=== PATIENT | female | born 1950 | race Caucasian/White ===

== ENCOUNTER → 2020-01-09 12:31 | Outpatient (BNVA) | payer MEDICARE, SELFPAY | PROVIDERS: PCP Internal Medicine; Referring Provider Internal Medicine; Visit Provider Physician Assistant | DX: R19.7 Diarrhea, unspecified (principal); R63.4 Abnormal weight loss; E11.9 Type 2 diabetes mellitus without complications; Z79.84 Long term (current) use of oral hypoglycemic drugs | CPT/HCPCS: 99213 ==

== ENCOUNTER 2020-01-16 08:08 | Outpatient (REF) | payer MEDICARE, SELFPAY ==
--- NOTE | 2020-01-16 08:10 | FL_ITS ---
EXAMINATION: BARIUM SWALLOW CLINICAL INFORMATION: Abnormal weight loss COMPARISON: None TECHNIQUE: Barium was performed using thin and thick barium and effervescent granules. Barium tablet was also administered. FINDINGS: Exam is limited. The patient could not tolerate thick barium. There is retention of barium in the vallecula. No aspiration or penetration is seen. There is gastroesophageal reflux. There is question of esophagitis of the distal esophagus. No hernia is seen. The barium tablet passed freely into the stomach. No stricture is seen. FL/FL barium swallow IMPRESSION: Limited exam. Retention of barium in the vallecula. Gastroesophageal reflux and question distal esophagitis.
== END 2020-01-16 08:09 | disposition home or self-care (01) ==
LOC: HO.XRAY 08:08
PROVIDERS: PCP Internal Medicine Geriatric Medicine; Visit Provider Physician Assistant
DX: R63.4 Abnormal weight loss (principal)
CPT/HCPCS: 74220

== ENCOUNTER → 2020-01-26 12:38 | Outpatient (BNVA) | payer MEDICARE, SELFPAY | PROVIDERS: PCP Internal Medicine Geriatric Medicine; Referring Provider Internal Medicine Geriatric Medicine; Visit Provider Physician Assistant | DX: K21.9 Gastro-esophageal reflux disease without esophagitis (principal); R13.10 Dysphagia, unspecified; R93.3 Abnormal findings on diagnostic imaging of other parts of digestive tract | CPT/HCPCS: 99212; Q3014 ==

== ENCOUNTER 2020-03-06 10:29 | Outpatient (REF) | payer MEDICARE, SELFPAY | END 2020-03-06 10:30 | disposition home or self-care (01) | LOC: HO.LAB 10:29 | PROVIDERS: PCP Internal Medicine Geriatric Medicine; Visit Provider Internal Medicine | DX: Z20.828 Contact with and (suspected) exposure to other viral communicable diseases (principal) | CPT/HCPCS: C9803; U0003 ==

== ENCOUNTER 2020-03-07 09:40 | Day surgery (SDC) | payer MEDICARE, OTHER, SELFPAY ==
[2020-03-01 10:58] VITALS: BMI 27.6
--- NOTE | 2020-03-06 10:55 | HO.ANESPROP2 ---
Documented by User: Emily Bowens 03/06/20 10:57 HPI - Anesthesia Eval Consult details Narrative: 69yo F for Upper Endoscopy [facility] Past Medical History Medical History Acid reflux Afib Arrhythmia Breast cancer Diabetes HTN (hypertension) Family History Family History (Updated 01/26/20 @ 10:04 by Taylor Darby PA-C) Father No problems noted. Daughter Diabetes Surgical History Surgical History H/O colonoscopy H/O: History of lumpectomy of right breast Hx of lymph node biopsy Social History Social History Alcohol intake: never Smoking Status: Never smoker Advance Directives Information Provided: No Recently lost weight without trying: Unsure Current occupational status: retired Current occupation: this summer Meds Allergies Allergy/AdvReac Type Severity Reaction Status Date / Time diphenhydramine AdvReac Nausea Verified 03/01/20 11:02 [From Steven] Home Medications Medication Instructions Recorded Confirmed Type atorvastatin 40 mg tablet 40 mg PO DAILY 01/09/20 03/01/20 History dulaglutide 0.75 mg/0.5 mL 0.75 mg SUBCUT QWEEK 01/09/20 03/01/20 History subcutaneous pen injector lisinopril 5 mg tablet 5 mg PO DAILY 01/09/20 03/01/20 History metformin 1,000 mg tablet 1,000 mg PO BID 01/09/20 03/01/20 History metoprolol succinate 25 mg 25 mg PO BID 01/09/20 03/01/20 History tablet,extended release 24 hr aspirin 81 mg tablet,delayed 81 mg PO DAILY 01/26/20 03/01/20 History release omeprazole 20 mg capsule,delayed 20 mg PO DAILY 01/26/20 03/01/20 History release Exam Exam Date and Time: March 06, 2020 1055 Height,Weight and Vital Signs: Height 4 ft 9 in Weight 58.06 kg Pertinent Lab Results Pertinent Lab Results: Laboratory Tests 05/10/19 08:45 BUN 20 H Creatinine 0.78 Assessment and Plan Assessment Anesthesia Assessment: Chart Reviewed Documented by User: Karen Cooley 03/07/20 10:55 [facility] Past Medical History Medical History Acid reflux Afib Arrhythmia Breast cancer Diabetes HTN (hypertension) Family History Family History (Updated 01/26/20 @ 10:04 by Taylor Darby PA-C) Father No problems noted. Daughter Diabetes Surgical History Surgical History H/O colonoscopy H/O: History of lumpectomy of right breast Hx of lymph node biopsy Social History Social History Alcohol intake: never Smoking Status: Never smoker Advance Directives Information Provided: No Recently lost weight without trying: Unsure Current occupational status: retired Current occupation: this summer [employer] Allergies Allergy/AdvReac Type Severity Reaction Status Date / Time diphenhydramine AdvReac Nausea Verified 03/01/20 11:02 [From [facility]] Home Medications Medication Instructions Recorded Confirmed Type atorvastatin 40 mg tablet 40 mg PO DAILY 01/09/20 03/01/20 History dulaglutide 0.75 mg/0.5 mL 0.75 mg SUBCUT QWEEK 01/09/20 03/01/20 History subcutaneous pen injector lisinopril 5 mg tablet 5 mg PO DAILY 01/09/20 03/01/20 History metformin 1,000 mg tablet 1,000 mg PO BID 01/09/20 03/01/20 History metoprolol succinate 25 mg 25 mg PO BID 01/09/20 03/01/20 History tablet,extended release 24 hr aspirin 81 mg tablet,delayed 81 mg PO DAILY 01/26/20 03/01/20 History release omeprazole 20 mg capsule,delayed 20 mg PO DAILY 01/26/20 03/01/20 History release Exam Airway Mallampati Class: II TM Dist: >3cm Neck ROM: Full Loose/Missing/Broken Teeth: No Heart: RRR Lungs: CTA Assessment and Plan Assessment Anesthesia Assessment: Anesthesia Plan Discussed and Chart Reviewed Final Anesthetic Review NPO: Yes ASA Class: III Final Preanesthetic Review: Meds/Allgs Chart Reviewed, Consent Obtained/Reviewed and Anes Risks/Benef Reviewed Patient Risk: Intermediate Procedure Risk: Intermediate Anesthetic Plan Anesthetic Plan: MAC: Disposition: Standard PACU
[2020-03-07 09:47] VITALS: BP 170/77; PULSE 72; RESP 18; TEMP 37.4; O2SAT 98
--- NOTE | 2020-03-07 10:05 | ECG_ITS ---
Test Reason : ARRHYTHMIA Blood Pressure : / mmHG Vent. Rate : 061 BPM Atrial Rate : 061 BPM P-R Int : 150 ms QRS Dur : 116 ms QT Int : 436 ms P-R-T Axes : 066 -18 104 degrees QTc Int : 438 ms Normal sinus rhythm Cannot rule out Anterior infarct (cited on or before 05-MAR-2009) T wave abnormality, consider lateral ischemia Abnormal ECG When compared with ECG of 30-APR-2013 18:37, Sinus rhythm has replaced Atrial fibrillation Serial changes of Anterior infarct Present Referred By: Karen Cooley Electronically Signed By:ADAN MAURICIO MD
[2020-03-07 10:11] LABS: Glucose, Whole Blood 182 mg/dL (60-115)
[2020-03-07] MEDS: Lactated Ringers 1,000 ML 100 ML IVCONT (10:12)
--- NOTE | 2020-03-07 10:13 | PC.NURSE ---
patient having arrythmia. asymptomatic. ekg being performed. anti aware.
--- NOTE | 2020-03-07 10:41 | MHC.SHP ---
Pre-Procedural Eval Section B Chief Complaint: GERD Relevant Family History (Specify if Yes): No Relevant Social History: None Present Medications: see Short Stay Collaborative assessment Medical History: Significant History (Acid reflux Breast cancer Diabetes HTN (hypertension)) History of Previous Operations: Relevant previous surgery/procedure and date(s) (lumpectomy, LN biopsy, c section) Allergies: Allergies Allergy/AdvReac Type Severity Reaction Status Date / Time diphenhydramine AdvReac Nausea Verified 03/01/20 11:02 [From Benadryl] Review of Systems Sugical H&P ROS: Negative: Constitution, Cardiovascular, Respiratory, Neurological, Psychiatric, Hem-Onc, Allergic/Immunologic, Gastrointestinal, Genitourinary, Musculoskeletal, Integumentary, Endocrine and Eyes/Ears/Nose/Throat Exam Surgical H&P Exam: Normal: HEENT, Normal: Heart, Normal: Lungs, Normal: Extremities, Normal: Abdomen, Normal: Skin and Normal: Neurological Plan Diagnosis/Plan: Unchanged I have reviewed the history and physical and performed a pertinent physical examination on my patient. No changes have occurred unless specified.
--- NOTE | 2020-03-07 10:43 | PM.OP ---
Brief Operative Note Date of Service: 03/07/20 Pre-op diagnosis: nausea, diarrhea Post-op diagnosis: same Procedure: Procedure Description: EGD FLEXIBLE TRANSORAL UPPER GASTROINTESTINAL ENDOSCOPY UPPER ENDOSCOPY Consent: Indications for the procedure and potential complications of bleeding, perforation, reaction to medications and missed diagnosis were discussed with the patient and informed consent was obtained. Instrument: Olympus GIF H 190 J mid size upper endoscope Monitoring: Vital signs and clinical assessment, continuous EKG monitoring, Pulse oximetry, Carbon Dioxide monitoring and blood pressure monitoring were done throughout the procedure. Procedure: The patient was placed in the left lateral decubitis position and pre-procedure medications were administered and a bite block was placed. The endoscope was inserted into the mouth and advanced under direct vision to the third part of duodenum. A careful inspection was made as the upper endoscope was withdrawn including a retroflexed examination of the proximal stomach; Findings and interventions are described below. Findings: Larynx:normal Esophagus: GE junction at 32 cm, diaphragm hiatus at 32 cm, salmon pink tongue at GEJ, possible short segment barretts, bx taken Stomach: Patchy gastric erythema, erosion at antrum. Biopsies were obtained. Grade 2 flap valve on retroflexed examination of the cardia. Duodenum: mild erythema in bulb, with superficial erosion, bx taken Intervention: Biopsies as noted above Impression/Findings: erosive duodenitis erosive gastritis possible barretts PLAN: await bx result if h pylori pos then treat check if taking any other nsaid in addition to aspirin increase omerpazole to 20 mg BID and see if get better effect Surgeon: Ailyn Bran MD Anesthesia: MAC Estimated blood loss (mL): 0 Condition: stable Disposition: PACU
--- NOTE | 2020-03-07 10:50 | PC.NURSE ---
md du from anesthesia aware of her ekg. ok to proceed. patient is asymptomatic
[2020-03-07 11:21] VITALS: BP 132/64; PULSE 65; RESP 12; TEMP 36; O2SAT 100
[2020-03-07 11:35] VITALS: BP 154/61; PULSE 62; RESP 16; O2SAT 99
[2020-03-07 11:50] VITALS: BP 161/71; PULSE 58; RESP 16; O2SAT 100
--- NOTE | 2020-03-07 14:14 | HO.POSTANES ---
Post Anesthesia Evaluation Post Anesthesia Evaluation Vital Signs: Vital Signs Temp Pulse Resp BP Pulse Ox 03/07/20 11:50 58 16 161/71 H 100 03/07/20 11:35 62 16 154/61 H 99 03/07/20 11:21 96.8 F 65 12 132/64 100 03/07/20 09:47 99.4 F 72 18 170/77 H 98 Anesthesia: Monitored Mental Status: Awake Nausea/Vomiting: None Hydration: Adequate Anesthesia-Related Issues: No Anes. Related Issues
== END 2020-03-07 12:44 | disposition home or self-care (01) ==
PROVIDERS: PCP Internal Medicine Geriatric Medicine; Visit Provider Internal Medicine Gastroenterology
PROC: 0DJ08ZZ Inspection of Upper Intestinal Tract, Via Natural or Artificial Opening Endoscopic (ICD-10-PCS; CPT 43235; principal; 2020-03-07 11:30)
DX: K21.9 Gastro-esophageal reflux disease without esophagitis (principal); K29.80 Duodenitis without bleeding; K29.50 Unspecified chronic gastritis without bleeding; B96.81 Helicobacter pylori [H. pylori] as the cause of diseases classified elsewhere; K44.9 Diaphragmatic hernia without obstruction or gangrene; I10 Essential (primary) hypertension; E11.9 Type 2 diabetes mellitus without complications; Z79.84 Long term (current) use of oral hypoglycemic drugs; Z79.82 Long term (current) use of aspirin; Z79.899 Other long term (current) drug therapy; Z85.3 Personal history of malignant neoplasm of breast
CPT/HCPCS: 43239; 82947; 88305; 88342; 93005

== ENCOUNTER → 2020-03-14 12:53 | Outpatient (BNVA) | payer MEDICARE, SELFPAY | PROVIDERS: PCP Internal Medicine Geriatric Medicine; Referring Provider Internal Medicine Geriatric Medicine; Visit Provider Physician Assistant | DX: Z18.9 Retained foreign body fragments, unspecified material (principal) | CPT/HCPCS: Q3014 ==

== ENCOUNTER 2020-03-27 08:23 | Outpatient (REF) | payer OTHER, SELFPAY | END 2020-03-27 08:24 | disposition home or self-care (01) | LOC: HO.LAB 08:23 | PROVIDERS: Visit Provider Internal Medicine | DX: Z20.822 Contact with and (suspected) exposure to COVID-19 (principal) | CPT/HCPCS: 36415; C9803; U0003 ==

== ENCOUNTER → 2020-04-11 10:21 | Outpatient (BNVA) | payer OTHER, SELFPAY | PROVIDERS: PCP Internal Medicine Geriatric Medicine; Visit Provider Physician Assistant | DX: Z76.89 Persons encountering health services in other specified circumstances (principal) ==

== ENCOUNTER 2020-05-03 10:23 | Outpatient (REF) | payer OTHER, SELFPAY | END 2020-05-03 10:24 | disposition home or self-care (01) | LOC: HO.LNP 10:23 | PROVIDERS: Visit Provider Physician Assistant | DX: A04.8 Other specified bacterial intestinal infections (principal) | CPT/HCPCS: 87338 ==

== ENCOUNTER → 2020-05-10 10:26 | Outpatient (BNVA) | payer MEDICARE, SELFPAY | PROVIDERS: PCP Internal Medicine Geriatric Medicine; Visit Provider Physician Assistant | CPT/HCPCS: Q3014 ==

== ENCOUNTER 2020-10-11 10:03 | Outpatient (REF) | payer MEDICARE, SELFPAY ==
--- NOTE | ~2020-10-11 | MM_ITS ---
EXAMINATION: MM SCREENING DIGITAL BREAST TOMOSYNTHESIS, BILATERAL CLINICAL INFORMATION: Right lumpectomy for breast cancer, 2010. Due for yearly. COMPARISON: Mammography: 10/06/2019, 07/14/2018, 11/10/2016 TECHNIQUE: Digital breast tomosynthesis is performed in both the craniocaudal and mediolateral oblique views along with computer-aided detection (CAD). Synthesized 2D images are generated from the tomosynthesis. FINDINGS: There are scattered areas of fibroglandular density (ACR BI-RADS breast composition Category b). Breast tissue composition borders on heterogeneously dense. There is a stable nodule mid outer left breast similar to prior exams. Bilateral vascular and scattered benign punctate round and some coarse calcifications are again seen. There is no interval mass or architectural abnormality or abnormal calcifications. There are post therapy changes right breast with mild reduced breast size and stable scarring posterior upper outer quadrant. There is benign coarse calcification in the scar. No significant changes. MM/MM tomosynthesis screening BI IMPRESSION: No mammographic evidence of malignancy. Post therapy changes right breast. ASSESSMENT: BI-RADS 2: Benign RECOMMENDATION: Routine annual mammography screening. This patient's information was entered into a reminder system with a target due date for their next mammogram.
== END 2020-10-11 10:04 | disposition home or self-care (01) ==
LOC: HO.MAMMO 10:03
PROVIDERS: Visit Provider Internal Medicine Geriatric Medicine
DX: Z12.31 Encounter for screening mammogram for malignant neoplasm of breast (principal)
CPT/HCPCS: 77063; 77067

== ENCOUNTER 2021-03-26 10:26 | Outpatient (REF) | payer MEDICARE, SELFPAY ==
--- NOTE | ~2021-03-26 | XR_ITS ---
EXAMINATION: XR LUMBOSACRAL SPINE CLINICAL INFORMATION: Low back pain COMPARISON: None TECHNIQUE: Three views of the lumbosacral spine. FINDINGS: The vertebral body heights and intervertebral disc spaces are maintained. Multilevel endplate degenerative changes/anterior osteophytes. The disc spaces are preserved and the vertebral alignment is normal. The paraspinal soft tissues are normal. There is mild atherosclerotic calcification of the abdominal aorta. XR/XR lumbar spine 2-3V IMPRESSION: Mild degenerative disease of lumbar spine.
== END 2021-03-26 10:27 | disposition home or self-care (01) ==
LOC: HO.XRAY 10:26
PROVIDERS: Visit Provider Internal Medicine Geriatric Medicine
DX: M54.50 Low back pain, unspecified (principal)
CPT/HCPCS: 72100

== ENCOUNTER 2021-08-20 09:12 | Outpatient (REF) | payer MEDICARE, SELFPAY ==
--- NOTE | ~2021-08-20 | MM_ITS ---
EXAMINATION: BONE DENSITOMETRY CLINICAL INDICATION: Asymptomatic menopausal state. COMPARISON: Previous BD dated 12/04/2015 and baseline BD dated 10/27/2007. TECHNIQUE: Using a [employer] Social DXA System (software version: 13.1) manufactured by [employer], dual-energy x-ray absorptiometry was performed of the lumbar spine and left hip. The images are of good technical quality. Summary results are attached. FINDINGS: AP SPINE L1-L4: Current: BMD 1.014 g/cm2, Z-score 1.0, T-score -1.4, osteopenia, 4.5% decrease from previous, 3.5% decrease from baseline (<5% change is not significant). Prior: BMD 1.062 g/cm2. Baseline: BMD 1.051 g/cm2. LEFT FEMUR, NECK: Current: BMD 1.099 g/cm2, Z-score 2.7, T-score 0.4, normal. Prior: BMD 1.084 g/cm2. Baseline: BMD 1.072 g/cm2. LEFT FEMUR, TOTAL: Current: BMD 1.121 g/cm2, Z-score 3.0, T-score 0.9, normal, 1.8% decrease from previous, 1.6% decrease from baseline (<5% change is not significant). Prior: BMD 1.142 g/cm2. Baseline: BMD 1.139 g/cm2. IDENTIFIED RISK FACTORS: Low body weight, menopause. HISTORY OF FRACTURE: None listed. MEDICATIONS: Calcium. MM/XR DEXA axial skeleton IMPRESSION: 1. DIAGNOSIS: Osteopenia based on the lowest T-score value of -1.4 in the lumbar spine applying World Health Organization criteria. 2. 10-YEAR FRACTURE RISK PREDICTION, FRAX: Major osteoporotic fracture (clinical spine, forearm, hip or shoulder) 3.5%. Hip fracture 0.2%. 3. Treatment Recommendations: NOF guidelines recommend consideration for treatment in postmenopausal women and men age 50 and older presenting with the following: -A hip or vertebral (clinical or morphometric) fracture. -T-score less than or equal to -2.5 at the femoral neck or spine after appropriate evaluation to exclude secondary causes. -Low bone mass at the hip or spine and a 10-year fracture probability by FRAX of greater than or equal to 3% for hip fracture or greater than or equal to 20% for major osteoporotic fracture based on the [place] adapted WHO algorithm. 4. Other Recommendations: All treatment decisions require clinical judgment and consideration of individual patient factors, including patient preferences, comorbidities, previous drug use, risk factors not captured in the FRAX model (e.g. frailty, falls, vitamin D deficiency, increased bone turnover, interval significant decline in bone density) and possible under or overestimation of fracture risk by FRAX. Additional medical evaluation for secondary cause of low bone mineral density may be appropriate. FUTURE SCAN RECOMMENDATION: People with diagnosed cases of osteoporosis or at high risk for fracture should have regular bone mineral density tests. For patients eligible for Medicare, routine testing is allowed once every 2 years. The testing frequency can be increased to one year for patients who have rapidly progressing disease, those who are receiving or discontinuing medical therapy to restore bone mass, or have additional risk factors.
== END 2021-08-20 09:13 | disposition home or self-care (01) ==
LOC: HO.MAMMO 09:12
PROVIDERS: PCP Internal Medicine Geriatric Medicine; Visit Provider Internal Medicine Geriatric Medicine
DX: Z13.820 Encounter for screening for osteoporosis (principal); Z78.0 Asymptomatic menopausal state; M85.80 Other specified disorders of bone density and structure, unspecified site
CPT/HCPCS: 77080

== ENCOUNTER 2021-10-16 09:02 | Outpatient (REF) | payer MEDICARE, SELFPAY ==
--- NOTE | ~2021-10-16 | MM_ITS ---
EXAMINATION: MM SCREENING DIGITAL BREAST TOMOSYNTHESIS, BILATERAL CLINICAL INFORMATION: Screening. Asymptomatic. History right breast cancer status post lumpectomy, 2010. COMPARISON: Mammography: 10/11/2020, 10/06/2019, 07/14/2018 TECHNIQUE: Digital breast tomosynthesis is performed in both the craniocaudal and mediolateral oblique views along with computer-aided detection (CAD). Synthesized 2D images are generated from the tomosynthesis. FINDINGS: There are scattered areas of fibroglandular density (ACR BI-RADS breast composition Category b). Breast tissue composition borders on heterogeneously dense. There is fibronodular parenchymal pattern similar to prior studies. Nodule mid upper outer left breast is similar to prior studies. There is no interval mass or architectural abnormality. There are scattered bilateral vascular and some punctate calcifications. Benign grouped coarse calcifications again seen mid 8:00 left breast. There is stable lumpectomy scar posterior upper outer right breast with central benign dystrophic calcification. The synthesized CC view shows calcifications versus pseudo calcification digital processing artifact just anterior lateral to the dystrophic calcification. No definite correlate on MLO view. Patient will be recalled for additional imaging. MM/MM tomosynthesis screening BI IMPRESSION: Right: -Question of calcifications versus pseudocalcification digital processing artifact anterior lateral aspect lumpectomy scar on synthesized CC view. Left: -No significant changes from prior exams. ASSESSMENT: BI-RADS 0: Incomplete - Need Additional Imaging Evaluation RECOMMENDATION: 1. Additional views of the right breast (magnification CC, magnification ML). 2. Radiology department staff will contact the patient for additional imaging. This patient's information was entered into a reminder system with a target due date for their next mammogram.
== END 2021-10-16 09:03 | disposition home or self-care (01) ==
LOC: HO.MAMMO 09:02
PROVIDERS: PCP Internal Medicine Geriatric Medicine; Visit Provider Internal Medicine Geriatric Medicine
DX: Z12.31 Encounter for screening mammogram for malignant neoplasm of breast (principal)
CPT/HCPCS: 77063; 77067

== ENCOUNTER 2021-10-18 10:06 | Outpatient (REF) | payer MEDICARE, SELFPAY ==
--- NOTE | ~2021-10-18 | MM_ITS ---
EXAMINATION: MM BREAST DIAGNOSTIC DIGITAL, RIGHT CLINICAL INFORMATION: Grouping of calcifications in patient status post breast cancer with lumpectomy, right breast. COMPARISON: Mammography: 10/16/2021 and studies dating back to 04/16/2007 TECHNIQUE: Digital mammography is performed in the following views: Spot magnification views in craniocaudal and 90 degree mediolateral views. FINDINGS: There are scattered areas of fibroglandular density (ACR BI-RADS breast composition Category b). On craniocaudal view, there are noted to be 2 groupings of microcalcifications, one laterally and one slightly medially which appear to be new. The medial calcifications appear to lie inferiorly in approximately the 4 to 5 o'clock position. The deeper grouping of calcifications laterally appears to lie at approximately the 9 o'clock position. Stereotactic core biopsy is recommended. The calcifications appear to be distant from the surgical site. The above recommendation was explained to the patient at time of examination. Shahana at referring physician's office was notified of the above recommendations on 10/18/2021. MM/MM added views RT IMPRESSION: Two groupings of right breast calcifications for which stereotactic core biopsy is recommended. ASSESSMENT: BI-RADS 4: Suspicious RECOMMENDATION: Stereotactic core biopsy. This patient's information was entered into a reminder system with a target due date for their next mammogram.
== END 2021-10-18 10:07 | disposition home or self-care (01) ==
LOC: HO.MAMMO 10:06
PROVIDERS: PCP Internal Medicine Geriatric Medicine; Visit Provider Internal Medicine Geriatric Medicine
DX: R92.1 Mammographic calcification found on diagnostic imaging of breast (principal)
CPT/HCPCS: 77065

== ENCOUNTER 2021-10-24 09:24 | Outpatient (REF) | payer MEDICARE, SELFPAY ==
--- NOTE | ~2021-10-24 | MM_ITS ---
EXAMINATION: STEREOTACTIC-GUIDED VACUUM-ASSISTED BREAST BIOPSY (TWO SITES), RIGHT SPECIMEN RADIOGRAPH, RIGHT POST PROCEDURE DIGITAL MAMMOGRAM, RIGHT CLINICAL INFORMATION: 2 separate areas of grouped calcifications right breast for stereotactic sampling. History right breast cancer status post lumpectomy, 2010. Calcifications not at lumpectomy site. COMPARISON: Mammography 10/18/2021, 10/16/2021, 10/11/2020, 10/06/2019. TECHNIQUE/PROCEDURE: Informed consent was obtained from the patient after discussion of the benefits, risks, and alternatives to biopsy today. Patient appeared to understand. Gave opportunity for questions. Patient signed consent form. BIOPSY TABLE: [employer] Affirm Prone Biopsy System. SPECIMEN A: LESION: Multiple grouped calcifications mid outer right breast. LOCAL ANESTHESIA: 6 mL carbonated 1% lidocaine; 8 mL 1% lidocaine with epinephrine. DERMATOTOMY: Single skin norberto dermatotomy performed. NEEDLE: [employer] Eviva 9-gauge vacuum assisted core biopsy device. APPROACH: Caudal cranial CORES: 5 CLIP: [employer] SecurMark T-shaped marker. SPECIMEN RADIOGRAPH (A): Specimen radiograph is taken in separate room using digital mammography. The index calcifications are in the excised cores. There are at least 25 calcifications in the cores. SPECIMEN B: Fresh biopsy supplies are used for 2nd biopsy site. LESION: Focal tightly grouped left calcifications circular lesion arranged lower inner quadrant. LOCAL ANESTHESIA: 5 mL carbonated 1% lidocaine; 10 mL 1% lidocaine with epinephrine. DERMATOTOMY: A new single skin norberto dermatotomy performed. NEEDLE: [employer] Eviva 9-gauge vacuum assisted core biopsy device. APPROACH: Caudal cranial CORES: 5 CLIP: [employer] SecurMark Cylinder-shaped marker. SPECIMEN RADIOGRAPH (B): Specimen radiograph is taken in separate room using digital mammography. The index calcifications are in the excised cores. There are at least 10 calcifications in the cores. POST PROCEDURE UNILATERAL DIGITAL MAMMOGRAM: The post biopsy mammogram is performed in separate room using separate digital mammography equipment from the biopsy procedure. CC and ML views are obtained. Density There are scattered areas of fibroglandular density (breast composition category: b). The 2 clip markers are in position. The calcifications are markedly decreased at the biopsy sites. No gross hematoma. The patient tolerated the procedure well. No immediate complications. Home instructions reviewed with the patient. Final pathology results are pending. MM/MM stereotactic biopsy RT IMPRESSION: 1. Stereotactically guided core biopsy right breast (2 sites) with clip placement at each site. 2. Specimen radiograph taken for each biopsy site. 3. Post procedure mammogram. There is satisfactory positioning of the biopsy clips. 4. Final pathology results pending. An addendum report will be issued.
--- NOTE | ~2021-10-24 | MM_ITS ---
EXAMINATION: STEREOTACTIC-GUIDED VACUUM-ASSISTED BREAST BIOPSY (TWO SITES), RIGHT SPECIMEN RADIOGRAPH, RIGHT POST PROCEDURE DIGITAL MAMMOGRAM, RIGHT CLINICAL INFORMATION: 2 separate areas of grouped calcifications right breast for stereotactic sampling. History right breast cancer status post lumpectomy, 2010. Calcifications not at lumpectomy site. COMPARISON: Mammography 10/18/2021, 10/16/2021, 10/11/2020, 10/06/2019. TECHNIQUE/PROCEDURE: Informed consent was obtained from the patient after discussion of the benefits, risks, and alternatives to biopsy today. Patient appeared to understand. Gave opportunity for questions. Patient signed consent form. BIOPSY TABLE: [employer] Affirm Prone Biopsy System. SPECIMEN A: LESION: Multiple grouped calcifications mid outer right breast. LOCAL ANESTHESIA: 6 mL carbonated 1% lidocaine; 8 mL 1% lidocaine with epinephrine. DERMATOTOMY: Single skin norberto dermatotomy performed. NEEDLE: [employer] Eviva 9-gauge vacuum assisted core biopsy device. APPROACH: Caudal cranial CORES: 5 CLIP: [employer]Mark T-shaped marker. SPECIMEN RADIOGRAPH (A): Specimen radiograph is taken in separate room using digital mammography. The index calcifications are in the excised cores. There are at least 25 calcifications in the cores. SPECIMEN B: Fresh biopsy supplies are used for 2nd biopsy site. LESION: Focal tightly grouped left calcifications circular lesion arranged lower inner quadrant. LOCAL ANESTHESIA: 5 mL carbonated 1% lidocaine; 10 mL 1% lidocaine with epinephrine. DERMATOTOMY: A new single skin norberto dermatotomy performed. NEEDLE: [employer] Eviva 9-gauge vacuum assisted core biopsy device. APPROACH: Caudal cranial CORES: 5 CLIP: [employer] SecurMark Cylinder-shaped marker. SPECIMEN RADIOGRAPH (B): Specimen radiograph is taken in separate room using digital mammography. The index calcifications are in the excised cores. There are at least 10 calcifications in the cores. POST PROCEDURE UNILATERAL DIGITAL MAMMOGRAM: The post biopsy mammogram is performed in separate room using separate digital mammography equipment from the biopsy procedure. CC and ML views are obtained. Density There are scattered areas of fibroglandular density (breast composition category: b). The 2 clip markers are in position. The calcifications are markedly decreased at the biopsy sites. No gross hematoma. The patient tolerated the procedure well. No immediate complications. Home instructions reviewed with the patient. Final pathology results are pending. MM/MM stereotactic biopsy ea add IMPRESSION: 1. Stereotactically guided core biopsy right breast (2 sites) with clip placement at each site. 2. Specimen radiograph taken for each biopsy site. 3. Post procedure mammogram. There is satisfactory positioning of the biopsy clips. 4. Final pathology results pending. An addendum report will be issued.
[2021-10-24] MEDS: Lidocaine HCl 1 % 20 ML VIAL 5 ML SUBCUT ×2 (13:12→13:15)
[2021-10-24] MEDS: Sodium Bicarbonate 8.4% 50 MEQ/50 ML VIAL SUBCUT ×2 (13:13→13:16)
== END 2021-10-24 09:25 | disposition home or self-care (01) ==
LOC: HO.MAMMO 09:24
PROVIDERS: PCP Internal Medicine Geriatric Medicine; Visit Provider Surgery
DX: R92.8 Other abnormal and inconclusive findings on diagnostic imaging of breast (principal)
CPT/HCPCS: 19081; 19082; 88305; 99202; A4648

== ENCOUNTER → 2021-10-29 15:30 | Outpatient (BNVA) | payer MEDICARE, SELFPAY | PROVIDERS: PCP Internal Medicine Geriatric Medicine; Visit Provider Surgery | DX: R92.8 Other abnormal and inconclusive findings on diagnostic imaging of breast (principal); Z98.890 Other specified postprocedural states | CPT/HCPCS: 99212 ==

== ENCOUNTER 2022-10-31 08:55 | Outpatient (REF) | payer OTHER, SELFPAY ==
--- NOTE | ~2022-10-31 | MM_ITS ---
EXAMINATION: MM SCREENING DIGITAL BREAST TOMOSYNTHESIS, BILATERAL CLINICAL INFORMATION: Screening. Asymptomatic. COMPARISON: Mammography: This study is compared with prior exams dating back to 2019. TECHNIQUE: Digital breast tomosynthesis is performed in both the craniocaudal and mediolateral oblique views along with computer-aided detection (CAD). Synthesized 2D images are generated from the tomosynthesis. FINDINGS: The breasts are heterogeneously dense, which may obscure small masses (ACR BI-RADS breast composition Category c). There are 2 sites of prior benign percutaneous biopsy and mediolateral aspects of the breast as indicated by the tissue markers. There are few, coarse and punctate benign calcifications in each breast. There are no mammographic signs of malignancy in the right breast. There are no significant masses, abnormal calcifications, or other abnormalities. MM/MM tomosynthesis screening BI IMPRESSION: No mammographic evidence of malignancy. ASSESSMENT: BI-RADS BI-RADS 2 - Benign Findings RECOMMENDATION: Routine annual mammography screening. 1 year F/U This examination should not preclude the clinical evaluation of a suspicious palpable abnormality. This patient's information was entered into a reminder system with a target due date for their next mammogram.
== END 2022-10-31 08:56 | disposition home or self-care (01) ==
LOC: HO.MAMMO 08:55
PROVIDERS: PCP Internal Medicine Geriatric Medicine; Visit Provider Internal Medicine Geriatric Medicine
DX: Z12.31 Encounter for screening mammogram for malignant neoplasm of breast (principal)
CPT/HCPCS: 77063; 77067

== ENCOUNTER → 2022-10-31 09:30 | Outpatient (BNV) | payer OTHER, SELFPAY | PROVIDERS: PCP Internal Medicine Geriatric Medicine; Visit Provider Radiology Diagnostic Radiology | DX: Z12.31 Encounter for screening mammogram for malignant neoplasm of breast (principal) | CPT/HCPCS: 77063; 77067 ==

== ENCOUNTER 2023-01-05 07:20 | Outpatient (REF) | payer OTHER, SELFPAY ==
[2023-01-05 07:45] LABS: MANUAL DIFF FLAG NO
[2023-01-05 08:39] LABS: Basophils Absolute Auto 0.1 X10*3/uL (0.0-0.2); Eosinophils Absolute Auto 0.4 X10*3/uL (0.0-0.4); Eosinophils Percent Auto 5.2 % (0-4); Hematocrit 40.3 % (37.0-47.0); Hemoglobin 13.3 g/dl (12.0-16.0); Imm Gran Abs Auto 0.03 X10*3/uL (0.00-0.03); Imm Gran Pct Auto 0.4 % (0.0-0.4); Lymphocytes Absolute Auto 1.6 X10*3/uL (1.2-4.9); Mean Corpuscular Hemoglobin 31.9 pg (27.0-33.0); Mean Corpuscular Volume 96.6 fL (80.0-98.0); Mean Platelet Volume 10.4 fL (9.4-12.3); Monocytes Absolute Auto 0.3 X10*3/uL (0.1-1.2); Monocytes Percent Auto 4.1 % (2-11); Neutrophils Absolute Auto 5.3 x10*3/uL (2.0-8.3); Neutrophils Percent Auto 68.3 % (45-73); Platelet Count 277 X10*3/uL (160-400); Red Blood Count 4.17 X10*6/uL (4.20-5.50); Red Cell Distribution Width 12.5 % (11.0-16.0); White Blood Count 7.7 X10*3/uL (4.8-10.8)
[2023-01-05 09:00] LABS: Creatinine Urine 90.13 mg/dL; Microalbum/Creatinine Ratio Ur 7.7 ug/mg cr (<30)
[2023-01-05 09:14] LABS: Alanine Aminotransferase 23 U/L (0-31); Albumin Level 4.4 g/dL (3.5-5.0); Alkaline Phosphatase 81 U/L (39-117); Anion Gap 15 (12-20); Aspartate Amino Transferase 24 U/L (5-31); Bilirubin Total 0.6 mg/dL (0.0-1.0); Blood Urea Nitrogen 17 mg/dL (9-16); Carbon Dioxide 27 mmol/L (22-29); Chloride 102 mmol/L (96-108); Cholesterol 131 mg/dL (<200); Estimated Glomerular Filt Rate > 60; Glucose Random 164 mg/dL (60-115); HDL Cholesterol 57 mg/dL (>40); LDL Cholesterol Calculated 61 mg/dL (<100); Potassium 4.4 mmol/L (3.3-5.1); Sodium 140 mmol/L (135-145); Total Protein 7.3 g/dL (6.5-8.0); Triglycerides 68 mg/dL (<150)
[2023-01-05 09:20] LABS: ~HepC Num1 0.04 S/CO (0.00-0.79); ~Hepatitis C Antibody Nonreactive (Nonreactive)
[2023-01-05 09:21] LABS: TSH reflex Free T4 3.26 uIU/mL (0.32-4.0)
[2023-01-05 09:26] LABS: Vitamin B12 285 pg/mL (200-900)
[2023-01-07 07:53] LABS: RPR Rapid Plasma Reagin NON-REACTIVE (NON-REACTIVE)
== END 2023-01-05 07:21 | disposition home or self-care (01) ==
LOC: HO.LAB 07:20
PROVIDERS: PCP Internal Medicine Geriatric Medicine; Visit Provider Internal Medicine Geriatric Medicine
DX: Z11.59 Encounter for screening for other viral diseases (principal); E11.65 Type 2 diabetes mellitus with hyperglycemia; R41.3 Other amnesia; E78.00 Pure hypercholesterolemia, unspecified
CPT/HCPCS: 36415; 80053; 80061; 82043; 82570; 82607; 84443; 85025; 86592; 86803

== ENCOUNTER 2023-01-22 17:36 | Outpatient (REF) | payer OTHER, SELFPAY | END 2023-01-22 17:37 | disposition home or self-care (01) | LOC: HO.HHCLNP 17:36 | PROVIDERS: Visit Provider Internal Medicine | DX: R30.0 Dysuria (principal) | CPT/HCPCS: 87086; 87088; 87186 ==

== ENCOUNTER 2023-05-26 08:00 | Outpatient (REF) | payer MEDICARE, SELFPAY ==
[2023-05-26 08:30] LABS: Basophils Absolute Auto 0.1 X10*3/uL (0.0-0.2); Basophils Percent Auto 0.9 % (0-2); Eosinophils Absolute Auto 0.3 X10*3/uL (0.0-0.4); Eosinophils Percent Auto 3.4 % (0-4); Hematocrit 37.7 % (37.0-47.0); Hemoglobin 12.4 g/dl (12.0-16.0); Imm Gran Abs Auto 0.04 X10*3/uL (0.00-0.03); Imm Gran Pct Auto 0.5 % (0.0-0.4); Lymphocytes Absolute Auto 2.1 X10*3/uL (1.2-4.9); Lymphocytes Percent Auto 27.3 % (20-40); MANUAL DIFF FLAG SCAN; Mean Corpuscular HGB Conc 32.9 g/dl (31.0-35.0); Mean Corpuscular Hemoglobin 30.8 pg (27.0-33.0); Mean Corpuscular Volume 93.8 fL (80.0-98.0); Mean Platelet Volume 9.4 fL (9.4-12.3); Monocytes Absolute Auto 0.3 X10*3/uL (0.1-1.2); Monocytes Percent Auto 4.1 % (2-11); Neutrophils Percent Auto 63.8 % (45-73); Platelet Count 241 X10*3/uL (160-400); Red Blood Count 4.02 X10*6/uL (4.20-5.50); SCAN SMEAR FLAG 1; White Blood Count 7.8 X10*3/uL (4.8-10.8)
[2023-05-26 08:56] LABS: SLIDE REVIEW VERIFIED
[2023-05-26 09:03] LABS: Alanine Aminotransferase 40 U/L (0-31); Albumin Level 4.1 g/dL (3.5-5.0); Alkaline Phosphatase 109 U/L (39-117); Anion Gap 13 (12-20); Aspartate Amino Transferase 33 U/L (5-31); Bilirubin Total 0.4 mg/dL (0.0-1.0); Blood Urea Nitrogen 18 mg/dL (9-16); Calcium 9.5 mg/dL (8.4-10.2); Carbon Dioxide 29 mmol/L (22-29); Chloride 102 mmol/L (96-108); Estimated Glomerular Filt Rate > 60; Glucose Random 160 mg/dL (60-115); Potassium 4.4 mmol/L (3.3-5.1); Sodium 140 mmol/L (135-145); Total Protein 7.3 g/dL (6.5-8.0)
== END 2023-05-26 08:01 | disposition home or self-care (01) ==
LOC: HO.LAB 08:00
PROVIDERS: PCP Internal Medicine Geriatric Medicine; Visit Provider Internal Medicine Geriatric Medicine
DX: E11.65 Type 2 diabetes mellitus with hyperglycemia (principal); F51.04 Psychophysiologic insomnia
CPT/HCPCS: 36415; 80053; 85025

== ENCOUNTER 2023-07-01 10:54 | Outpatient (REF) | payer OTHER, SELFPAY ==
[2023-07-01 12:47] LABS: Folate 13.7 ng/mL (> or = 4.0); Vitamin B12 277 pg/mL (200-900)
[2023-07-02 16:48] LABS: Homocysteine 9.8 umol/L (<10.4)
[2023-07-05 03:18] LABS: Methylmalonic Acid 292 nmol/L (87-318)
== END 2023-07-01 10:55 | disposition home or self-care (01) ==
LOC: HO.LAB 10:54
PROVIDERS: PCP Internal Medicine Geriatric Medicine; Visit Provider Internal Medicine Geriatric Medicine
DX: E53.8 Deficiency of other specified B group vitamins (principal)
CPT/HCPCS: 36415; 82607; 82746; 83090; 83921

== ENCOUNTER 2024-01-04 11:25 | Outpatient (REF) | payer OTHER, SELFPAY ==
[2024-01-04 14:24] LABS: Anion Gap 15 (12-20); Blood Urea Nitrogen 15 mg/dL (9-16); Calcium 9.5 mg/dL (8.4-10.2); Carbon Dioxide 26 mmol/L (22-29); Chloride 101 mmol/L (96-108); Estimated Glomerular Filt Rate > 60; Glucose Random 127 mg/dL (60-115); Potassium 4.1 mmol/L (3.3-5.1); Sodium 138 mmol/L (135-145)
[2024-01-04 14:54] LABS: Creatinine Urine 55.44 mg/dL; Microalbum/Creatinine Ratio Ur 16.2 ug/mg cr (<30)
== END 2024-01-04 11:26 | disposition home or self-care (01) ==
LOC: HO.HHCL 11:25
PROVIDERS: Visit Provider Internal Medicine Geriatric Medicine
DX: E11.65 Type 2 diabetes mellitus with hyperglycemia (principal); I10 Essential (primary) hypertension
CPT/HCPCS: 36415; 80048; 82043; 82570

== ENCOUNTER 2024-01-12 10:27 | Outpatient (REF) | payer OTHER, SELFPAY | END 2024-01-12 10:28 | disposition home or self-care (01) | LOC: HO.XRAY 10:27 | PROVIDERS: PCP Internal Medicine Geriatric Medicine; Visit Provider Internal Medicine Geriatric Medicine | DX: M25.511 Pain in right shoulder (principal); G89.29 Other chronic pain | CPT/HCPCS: 73030 ==

== ENCOUNTER 2024-04-13 09:11 | Outpatient (REF) | payer OTHER, SELFPAY ==
[2024-04-13 11:54] LABS: Anion Gap 14 (12-20); Blood Urea Nitrogen 14 mg/dL (9-16); Calcium 9.4 mg/dL (8.4-10.2); Carbon Dioxide 28 mmol/L (22-29); Chloride 100 mmol/L (96-108); Estimated Glomerular Filt Rate > 60; Glucose Random 151 mg/dL (60-115); Potassium 3.9 mmol/L (3.3-5.1); Sodium 138 mmol/L (135-145)
== END 2024-04-13 09:12 | disposition home or self-care (01) ==
LOC: HO.HHCL 09:11
PROVIDERS: Visit Provider Internal Medicine Geriatric Medicine
DX: E11.65 Type 2 diabetes mellitus with hyperglycemia (principal)
CPT/HCPCS: 36415; 80048

== ENCOUNTER 2024-06-27 13:49 | Outpatient (REF) | payer OTHER, SELFPAY ==
--- OUTSIDE RECORDS SUMMARY | 2024-06-27 16:01 | XMS_ITS | Encounter Summary ---
Author Organization [email or web address] Address [address] [facility] [address] [place] [address] Care Team Providers Care Transit Bus Operator Name Role Phone Name, Arjun GODFREY Primary Care Provider [phone] Mary Villegas PharmD Unavailable [phone] Encounter Details Date Type Department Care Team ([facility] Contact Info) Description 10/03/2022 Orders Only [facility] [address] [place] [id number] Richa Rowley LPN Social History Tobacco Use Types Packs/Day Years Used Date Smoking Tobacco: Never Assessed Comments Unknown Sex and Gender Information Value Date Recorded Sex Assigned at Female 01/13/2022 10:15 AM EDT Legal Sex Female 10:15 AM EDT Gender Identity Choose not to disclose 10:15 AM EDT Sexual Orientation Choose not to disclose 2021 10:15 AM EDT documented as of this encounter Plan of Treatment Upcoming Encounters Date Type Department Care Team ([facility] Contact Info) Description 07/21/2024 9:30 AM EDT Medication Management [facility] [address] [place] [phone] Mary Villegas, PharmD [address] [place] [address] documented as of this encounter Procedures Procedure Name Priority Date/Time Associated Diagnosis Comments BI MAMMOGRAM SCREENING TOMOSYNTHESIS BILATERAL Routine 10/31/2022 9:35 AM EDT documented in this encounter Results * BI Mammogram Screening Tomosynthesis Bilateral (10/31/2022 9:35 AM EDT) Anatomical Region Laterality Modality Breast Bilateral Mammography 10/31/2022 9:35 AM EDT Narrative 11/21/2022 5:51 AM EDT ? [facility] ? [address] ?[place] [address] ? Mammography Report ? Signed ? Patient: Crouch,Vanessa ?MR#: [id number] ?? [id number] ? : 1950 ?Acct:[id number] ? Age/Sex: 72 / F ?ADM Date: 10/31/22 ? Loc: HO.MAMMO ? Attending Dr: Arjun Name MD ? Ordering Physician: Name,Arjun MD ?Results: 2Benign Fi ?? ndings ? Date of Service: 10/31/22 ?Follow Up: 1 Year From Orig ?? inal Mammogram ? Procedure(s): MM tomosynthesis screening BI ?? Accession Number(s): [id number] ? cc: Name,Arjun GODFREY ? EXAMINATION: ?? MM SCREENING DIGITAL BREAST TOMOSYNTHESIS, BILATERAL ? CLINICAL INFORMATION: ? Screening. Asymptomatic. ? COMPARISON: ?? Mammography: This study is compared with prior exams dating back to ?? 2019. ? TECHNIQUE: ?? Digital breast tomosynthesis is performed in both the craniocaudal and ?? mediolateral oblique views along with computer-aided detection (CAD). ?? Synthesized 2D images are generated from the tomosynthesis. ? FINDINGS: ?? The breasts are heterogeneously dense, which may obscure small masses ?? (ACR BI-RADS breast composition Category c). ? There are 2 sites of prior benign percutaneous biopsy and mediolateral ?? aspects of the breast as indicated by the tissue markers. There are ?? few, coarse and punctate benign calcifications in each breast. There ?? are no mammographic signs of malignancy in the right breast. ?? There are no significant masses, abnormal calcifications, or other ?? abnormalities. ? MM/MM tomosynthesis screening BI ?? IMPRESSION: ?? No mammographic evidence of malignancy. ? ASSESSMENT: ? BI-RADS BI-RADS 2 - Benign Findings ? RECOMMENDATION: ?? Routine annual mammography screening. ? 1 year F/U ? This examination should not preclude the clinical evaluation of a ?? suspicious palpable abnormality. ? This patient's information was entered into a reminder system with a ?? target due date for their next mammogram. ? Dictated By: ?Jen Daniels MD ? Signed By: ?<Electronically signed by Jen Daniels MD in OV> ? 11/21/22 0547 ? DD/ 0935 ? TD/TT: ? Bar Roller: ? Procedure Note Yelitza, Image - 11/21/2022 [facility] [facility] [address] [place] [address] Mammography Report Signed Patient: Roshni Crouch#: [id number] : 9Acct:[id number] Age/Sex: 72 / FADM Date: 10/31/22 Loc: [facility] Attending Dr: Arjun Willard MD Ordering Physician: Arjun Willardesults: 2Benign Fi ndbryan Date of Service: 10/31/22Follow Up: 1 Year From Orig inal Mammogram Procedure(s): MM tomosynthesis screening BI Accession Number(s): [id number] cc: Arjun Willard MD EXAMINATION: MM SCREENING DIGITAL BREAST TOMOSYNTHESIS, BILATERAL CLINICAL INFORMATION: Screening. Asymptomatic. COMPARISON: Mammography: This study is compared with prior exams dating back to 2019. TECHNIQUE: Digital breast tomosynthesis is performed in both the craniocaudal and mediolateral oblique views along with computer-aided detection (CAD). Synthesized 2D images are generated from the tomosynthesis. FINDINGS: The breasts are heterogeneously dense, which may obscure small masses (ACR BI-RADS breast composition Category c). There are 2 sites of prior benign percutaneous biopsy and mediolateral aspects of the breast as indicated by the tissue markers. There are few, coarse and punctate benign calcifications in each breast. There are no mammographic signs of malignancy in the right breast. There are no significant masses, abnormal calcifications, or other abnormalities. MM/MM tomosynthesis screening BI IMPRESSION: No mammographic evidence of malignancy. ASSESSMENT: BI-RADS BI-RADS 2 - Benign Findings RECOMMENDATION: Routine annual mammography screening. 1 year F/U This examination should not preclude the clinical evaluation of a suspicious palpable abnormality. This patient's information was entered into a reminder system with a target due date for their next mammogram. Dictated By: Jen Daniels MD Signed By: <Electronically signed by Jen Daniels MD in OV> 11/21/22 0547 DD/ 0935 TD/TT: Bar Roller: Arjun Willard MD IMG BI PROCEDURES Edited Result - Final documented in this encounter Visit Diagnoses Not on filedocumented in this encounter Care Teams Transit Bus Operator Relationship Specialty Start Date End Date Name, MD Arjun [address] [place] [address] PCP - General Family Medicine 01/27/19 Mary Villegas PharmD [address] [place] [address] Pharmacist Internal Medicine 04/13/24 documented as of this encounter
--- OUTSIDE RECORDS SUMMARY | 2024-06-27 16:01 | XMS_ITS | Encounter Summary ---
Author Organization [employer] Address [address] [place] [address] Care Team Providers Care Senior Hardware Engineer Name Role Phone Name, Arjun GODFREY Primary Care Provider [phone] Mary Villegas PharmD Unavailable [phone] Reason for Visit * Reason Comments Med Refill Encounter Details Date Type Department Care Team ([facility] st Contact Info) Description 06/27/2024 Refill [facility] [address] [place] [address] Name, MD Arjun [address] [place] [address] Social History Tobacco Use Types Packs/Day Years Used Date Smoking Tobacco: Never Smokeless Tobacco: Never Alcohol Use Standard Drinks/Week Comments Never 0 (1 standard drink = 0.6 oz pur e alcohol) Alcohol Answer Date Recorded Frequency of Alcohol Consumption Not on file 01/04/2024 Average Number of Drinks Not on file 024 Frequency of Binge Drinking Not on file 12/15 Score 0 01/04/2024 Depression Answer Date Recorded Patient Health Questionnaire-9 Score 11 01/04/2024 Patient Health Questionnaire-9 Score 11 01/04/2024 Last PHQ-9: Questionnaire Data Not on file 1 Housing Stability Answer Date Recorded What is your housing situation today? I have claudio payne 12/29/[address] you li ve. Do you have problems with any of the following? None of the above 12/29/2022 Food Insecurity Answer Date Recorded Within the past 12 months, y ou worried that your food would run out before you got money to buy more: Never True 12/29/2022 Within the past 12 months,th e food you bought just didn't last and you didn't have enough money to get more: Never True Transportation Answer Date Recorded In the past 12 months, has l ack of transportation kept you from medical appts, meetings, work or from getting things needed for daily living? No 12/29/2022 Utilities Answer Date Recorded In the past 12 months, has t he electric, gas, oil or water company threatened to shut off services in your home? No 12/29/2022 Depression Answer Date Recorded Patient Health Questionnaire-2 Score 4 01/04/2024 Internet Access Answer Date Recorded Internet Access Q1 Yes 12/24/2023 Internet Access Q2 Not on file 12/24/2023 Comments Unknown Sex and Gender Information Value Date Recorded Sex Assigned at Female 01/13/2022 10:15 AM EDT Legal Sex Female 10:15 AM EDT Gender Identity Choose not to disclose 10:15 AM EDT Sexual Orientation Choose not to disclose 2021 10:15 AM EDT documented as of this encounter Plan of Treatment Upcoming Encounters Date Type Department Care Team (Late st Contact Info) Description 07/21/2024 9:30 AM EDT Medication Management [facility] [address] [place] [address] Mary Villegas, LacyD [address] [place] [address] documented as of this encounter Goals Goal Patient Goal Type Associated Problems Recent Progress Patient-Stated? Author Hemoglobin A1c < 7 Result Component 9.3(04/05/2024 2:22 PM EST) No Candi Oglesby PharmJace documented as of this encounter Visit Diagnoses Not on filedocumented in this encounter Additional Health Concerns Assessment Noted Time PHQ-9 Depression Total Score: 11 024 11:52 AM EDT documented as of this encounter Care Teams Senior Hardware Engineer Relationship Specialty Start Date End Date Name, MD Arjun [address] [place] [address] PCP - General Family Medicine 11/14/19 Mary Villegas, LacyD [address] [place] [address] Pharmacist Internal Medicine 04/13/24 documented as of this encounter
--- OUTSIDE RECORDS SUMMARY | 2024-06-27 16:01 | XMS_ITS | Encounter Summary ---
Author Organization [employer] Address [address] [facility] 7t [place] [address] Care Team Providers Care Dialer Name Role Phone Name, Arjun GODFREY Primary Care Provider [phone] Mary Villegas PharmD Unavailable [phone] Reason for Visit * Reason Comments Med Refill Encounter Details Date Type Department Care Team (Late st Contact Info) Description 09/06/2022 Refill [facility] [address] [place] [phone] Tona Canales FNP [address] [place] [address] Dept [place] [address] Social History Tobacco Use Types Packs/Day Years [...] Description 07/21/2024 9:30 AM EDT Medication Management [facility] [address] [place] [phone] Mary Villegas, PharmD [address] [place] [address] documented as of this encounter Visit Diagnoses Not on filedocumented in this encounter Care Teams Dialer Relationship Specialty Start Date End Date Name, MD Arjun [address] [place] [address] PCP - General Family Medicine 01/27/19 Mary Villegas PharmD [address] [place] [address] Pharmacist Internal Medicine 04/13/24 documented as of this encounter
--- OUTSIDE RECORDS SUMMARY | 2024-06-27 16:01 | XMS_ITS | Encounter Summary ---
Author Organization [employer] Address [address] [facility] 7t [place] [address] Care Team Providers Care Evidence Technician Name Role Phone Name, Arjun GODFREY Primary Care Provider Mary Villegas PharmD Unavailable [phone] Reason for Visit * Reason Comments Med Refill Encounter Details Date Type Department Care Team ([facility] Contact Info) Description 05/07/2022 Refill [facility] [address] [place] [phone] Arjun Willard MD [address] [place] [id number] Social History Tobacco Use Types Packs/Day Years [...] Encounters Date Type Department Care Team (Late Contact Info) Description 07/21/2024 9:30 AM EDT Medication Management [facility] [address] [place] [phone] Mary Villegas, PharmD [address] [place] [address] documented as of this encounter Visit Diagnoses Not on filedocumented in this encounter Care Teams Evidence Technician Relationship Specialty Start Date End Date Arjun Willard MD [address] [place] [address] PCP - General Family Medicine 01/27/19 Mary Villegas, Massimo [address] [place] [address] Pharmacist Internal Medicine 04/13/24 documented as of this encounter
--- OUTSIDE RECORDS SUMMARY | 2024-06-27 16:01 | XMS_ITS | Clinical Summary ---
Author Organization [employer] Address [address] [facility] 7[address] [place] [address] Care Team Providers Care Staff Editor Name Role Phone Name, Arjun GODFREY Primary Care Provider [phone] Mary Villegas PharmD Unavailable [phone] Allergies Active Allergy Reactions Criticality Noted Date Comments Diphenhydramine Nausea,Vomiting 01/07/2021 Medications Blood Glucose Monitoring Suppl (ONE TOUCH ULTRA 2) w/Device kitIndications: Type 2 diabetes mellitus with hyperglycemia, without long-term current use of insulin ([facility]) Use to check blood glucose by subcutaneous route two times every day. 1 kit 4 Active [employer] Delica Lancets 33G miscIndications :Type 2 diabetes mellitus with hyperglycemia, without long-term current use of insulin ([facility]) Use to check blood glucose by subcutaneous route two time every day 100 each 11 4 Active [employer] Ultra Test test stripIndication s:Type 2 diabetes mellitus with other specified complication, unspecified whether chcf insulin use ([facility]) TEST BLOOD SUGAR TWICE DAILY 100 strip 11 4 Active ascorbic acid (Vitamin C) 500 MG tablet Once per day. Active zinc gluconate 50 MG tablet Once per day. Act ines omeprazole (PriLOSEC) [address] capsule TAKE 1 CAPSULE BY MOUTH EVERY MORNING BEFORE A MEAL 90 capsule 1 4 Active lisinopril 5 MG tablet TAKE 1 TABLET BY MOUTH EVERY MORNING 90 tablet 1 4 Active acetaminophen (Tylenol) 500 MG tablet Take by mouth. Take 1-2 tabs PRN pain. Do not exceed 6 tabs in 24 hours. (OTC) Active SITagliptin-met FORMIN (Janumet) 50-1000 MG tablet Take 1 tablet by mouth with breakfast and with evening meal. 60 tablet 11 5 04/13/19 26 Active empagliflozin (Jardiance) 25 MG Take 1 tablet (25 mg) by mouth Once per day. 30 tablet 11 5 05/13/19 26 Active atorvastatin (Lipitor) 40 MG tabletIndicatio ns:High cholesterol TAKE 1 TABLET BY MOUTH EVERY MORNING 90 tablet 3 5 Active Active Problems Problem Noted Date Diagnosed Date Chronic low back pain 12/30/2022 12/30/2022 Overweight 11/17/2017 12/30/2022 Type 2 diabetes mellitus without complication 12/30/2022 Hyperglycemia due to type 2 diabetes mellitus 12/30/2022 Diabetes mellitus 06/11/2011 12/30/2022 Essential hypertension 09/12/2010 Pure hypercholesterolemia 09/12/20102022 Encounters Date Type Department Care Team Description 06/27/2024 Refill [facility] [address] [place] [address] Name, MD Arjun 06/20/2024 10:00 AM EDT Office Visit [facility] [address] [place] [address] Shan, Lula, OD Diabetes type 2, no ocular involvement (CMS/HCC) (Primary Dx); Amblyopia, refractive, left; Combined forms of age-related cataract of both eyes; Presbyopia; Vitreomacular traction syndrome of both eyes 06/20/2024 Travel 06/16/2024 Travel 05/19/2024 Refill [facility] [address] [place] [address] NameArjun MD High cholesterol 04/14/2024 Abstract [facility] [address] [place] [address] NameArjun MD 04/13/2024 Travel 04/05/2024 2:30 PM EST Office Visit [facility] [address] [place] [address] NameArjun MD Type 2 diabetes mellitus with hyperglycemia, without long-term current use of insulin ([facility]) (Primary Dx); Essential hypertension; Breast pain in female; History of breast cancer in female from Last 3 Months Immunizations Name Administration Dates Next Due Hep A, Adult 09/08/2011 Hep B, adult 08/11/2011,06/11/2011 Influenza High-dose Quadriva lent Preservative Free 01/07/2021 Influenza Quadrivalent Adjuvanted 12/13/2022,07/2021 Influenza injectable quadriv alent IIV4 with preservative 01/12/2015 Influenza injectable quadriv alent preservative free 12/09/2018 Influenza, High Dose Seasona l, Preservative Free 11/28/2023 Influenza, IIV3, injectable 01/16/2014, 1,03/31/2008 Influenza, Split (incl. deejay fied surface antigen) 12/10/2011 Pneumococcal Conjugate PCV 20 05/18/2023 Pneumococcal Conjugate PCV 7 09/19/2003 RSV Bivalent 04/20/2024 Tdap 05/18/2023,06/11/2011 Zoster, Recombinant 06/16/2024,04/20/2024 Zoster, live 11/17/2017 Social History Tobacco Use Types Packs/Day Years Used Date Smoking Tobacco: Never Smokeless Tobacco: Never Tobacco Cessation:Counseling Given: Not Answered Alcohol Use Standard Drinks/Week Comments Never 0 [...] not to disclose 2021 10:15 AM EDT Last Filed Vital Signs Vital Sign Reading Time Taken Comments Blood Pressure 130/62 06/16/2024 10:11 AM EDT Pulse 71 04/05/2024 2:20 PM EST Temperature 36.7 ??C (98 ??F) 04/05/2024 2:20 PM EST Respiratory Rate 16 04/05/2024 2:20 PM EST Oxygen Saturation 99% 04/05/2024 2:20 PM EST Inhaled Oxygen Concentration - - Weight 47.8 kg (105 lb 6.4 oz) 04/05/2024 2:20 P M EST Height 144.8 cm (4' 9 ) 04/05/2024 2:20 PM EST Body Mass Index 22.81 04/05/2024 2:20 PM EST Plan of Treatment Upcoming Encounters Date Type Department Care Team (Late st Contact Info) Description 07/21/2024 9:30 AM EDT Medication Management [facility] [address] [place], [place] [phone] Mary Villegas, PharmD [address] [place] [address] Health Maintenance Due Date Last Done Comments Hepatitis B Vaccines (3 of 3 - 19+ 3-dose series) 12/12/2011 08/11/2011, 06/11/2011 Diabetes: Foot Exam 01/02/2024 01/01/2023, 01/01/2023, 01/01/2023, Additional history exists Lipid Panel 01/06/2024 01/05/2023, 08/15, 12/10/2020 Depression Monitoring 07/04/2024 01/04/2024, 024 Diabetes: Hemoglobin A1C 07/04/2024 025, 01/04/2024, 05/18/2023, Additional history exists SDOH Screening 12/23/2024 12/24/2023 Alcohol/Substance Use Screening 01/03/2025 01/04/2024 Depression Screening 01/03/2025 01/04/2024, 01/04/20 24 Diabetes: Urine Protein Screening 01/03/2025 01/04/2024, 01/05/2023, 12/11/2020, Additional history exists Tobacco Screening 04/05/2025 04/05/2024 Eye Exam 06/20/2026 06/20/2024, 0409/2024, 06/20/2024, Additional history exists DTaP/Tdap/Td Vaccines (3 - Td or Tdap) 05/17/2033 05/18/2023, 06/11/2011 Hepatitis A Vaccines Aged Out 09/08/2011 No long er eligible based on patient's age to complete this topic Colonoscopy Discontinued 06/04/2017 Colorectal Cancer Screening Discontinued Hepatitis C Screening Completed 01/05/2023 Pneumococcal Vaccine: 50+ Years Completed 05/18/2023, 09/19/2003 COVID-19 Vaccine Completed 11/28/2023, , 02/17/2022, Additional history exists Influenza Vaccine Completed 11/28/2023, , 02/17/2022, Additional history exists RSV Patients and Patients Aged 60 years or older Completed 04/20/2024 Zoster Vaccines Completed 06/16/2024, 0207/2024, 11/17/2017 CT Colonography Discontinued FIT DNA/Cologuard Discontinued FIT Discontinued FOBT Discontinued HIB Vaccines Aged Out No longer eligi ble based on patient's age to complete this topic HPV Vaccines Aged Out No longer eligi ble based on patient's age to complete this topic IPV Vaccines Aged Out No longer eligi ble based on patient's age to complete this topic Meningococcal Vaccine Aged Out No gregorio romain eligible based on patient's age to complete this topic RSV under 20 months Aged Out No longe r eligible based on patient's age to complete this topic Rotavirus Vaccines Aged Out No longer eligible based on patient's age to complete this topic Sigmoidoscopy Discontinued Goals Goal Patient Goal Type Associated Problems Recent Progress Patient-Stated? Author Hemoglobin A1c < 7 Result Component 9.3(04/05/2024 2:22 PM EST) No Candi Oglesby PharmD Procedures Procedure Name Priority Date/Time Associated Diagnosis Comments BASIC METABOLIC PANEL Routine 04/13/2024 9:12 AM EST Type 2 diabetes mellitus with hyperglycemia, without long-term current use of insulin (CMS/HCC) POCT GLYCATED HEMOGLOBIN, TOTAL Routine 04/05/2024 2:22 PM EST Type 2 diabetes mellitus with hyperglycemia, without long-term current use of insulin (CMS/HCC) POCT GLUCOSE Routine 04/05/2024 2:21 PM EST Type 2 diabetes mellitus with hyperglycemia, without long-term current use of insulin (CMS/HCC) ALBUMIN, RANDOM URINE W/CREATININE Routine 01/04/2024 11:30 AM EDT Type 2 diabetes mellitus with hyperglycemia, without long-term current use of insulin (CMS/HCC) HEPATITIS C ANTIBODY Routine 01/05/2023 7:32 AM EDT Need for hepatitis C screening test LIPID PANEL, STANDARD Routine 01/05/2023 7:32 AM EDT Type 2 diabetes mellitus with hyperglycemia, without long-term current use of insulin (CMS/HCC) Memory problem High cholesterol HM COLONOSCOPY Routine 06/04/2017 9:23 AM EDT from Last 3 Months or Most Recently Relevant to Health Maintenance Results * (ABNORMAL) Basic Metabolic Panel (04/13/2024 9:12 AM EST) Pathologist [facility] Sodium 138 135 - 145 mmol/L [facility] Potassium 3.9 3.3 - 5.1 mmol/L [facility] Chloride 100 96 - 108 mmol/L [facility] Carbon Dioxide 28 22 - 29 mmol/L [facility] Anion Gap 14 12 - 20 [facility] Urea Nitrogen (BUN) 14 9 - 16 mg/dL [facility] Creatinine, Serum 0.68 0.5 - 1.4 mg/dL [facility] Estimated Glomerular Filt Rate >60 [facility] Comment:Chronic Kidney Disea se: Estimated GFR < 60 mL/min/1.19v6Mycyps Kidney Disease: Estimated GFR < 15 mL/min/1.73m2 Glucose 151(H) 60 - 115 mg/dL [facility] Calcium 9.4 8.4 - 10.2 mg/dL [facility] Blood Venous blood specimen / Unknown 04/13/2024 9:12 AM EST 04/13/2024 11:25 AM EST us Arjun Willard MD LAB BLOOD ORDERABLES Edited Resu lt - Final [facility] [address] [place] [phone] * (ABNORMAL) POCT HGB A1C (04/05/2024 2:22 PM EST) Pathologist [facility] Hemoglobin A1C 9.3(A) 4.0 - 6.0 % QC Media Lot # [id number] Lot# Expiration Date [id number] Blood 04/05/2024 2:22 PM EST us Arjun Willard MD POINT OF CARE TEST ENTER/EDIT OR DERABLES Final Result * POCT Glucose (04/05/2024 2:21 PM EST) Pathologist [facility] Glucose Blood, POC 191 60 - 200 mg/dL QC Media Lot # [id number] Lot# Expiration Date 53 Blood Capillary blood specimen / Unknown 04/05/2024 2:21 PM EST Result Marta Willard MD POINT OF CARE TEST ENTER/EDIT OR DERABLES Final Result * Albumin, Random Urine W/Creatinine (01/04/2024 11:30 AM EDT) Creatinine, Urine 55.44 mg/dL [facility] Microalbumin Urine 9.0 mg/L [facility] Microalbum Creatinine Ratio Ur 16.2 <30 ug/mg cr [facility] Comment:Albumin/Creatinine R atio Reference Ranges: Normal: < 30 ug/mg creatinine Microalbuminuria: 30 - 300 ug/mg creatinineClinical Albuminuria: > 300 ug/mg creatinine Urine (Urine, Random) 01/04/2024 11:30 AM EDT 01/04/2024 1:10 PM EDT us Arjun Willard MD LAB URINE ORDERABLES Final Resul t Performing Organization Address [facility] Co de Phone Number [facility] [address] [place] [address] [phone] * Hepatitis C Ab (01/05/2023 7:32 AM EDT) Pathologist [facility] Hepatitis C Antibody Nonreactive Nonreactive [facility] Comment:Antibodies to HCV no t detected; does not exclude early acuteHCV infection. Blood Venous blood specimen / Unknown 01/05/2023 7:32 AM EDT 01/05/2023 7:44 AM EDT us Arjun Willard MD LAB BLOOD ORDERABLES Final Resul t Performing Organization Address [facility] Co de Phone Number [facility] [address] [place] [phone] * Lipid Panel, Standard (01/05/2023 7:32 AM EDT) Triglycerides 68 <150 mg/dL [facility] Comment:Desirable Triglyceri de: less than 150 mg/dLBorderline High Triglyceride 150-199 mg/dLHigh Triglyceride: 200-499 mg/dLVery High Triglyceride: greater than or equal to 5OO mg/dL Cholesterol 131 <200 mg/dL [facility] Comment:Desirable Cholestero l: less than 200 mg/dLBorderline High Cholesterol: 200-239 mg/dLHigh Cholesterol: greater than 239 mg/dL LDL Cholesterol Calculated 61 <100 mg/dL [facility] Comment:Desirable LDL: less than 100 mg/dLNear Optimal/Above Optimal LDL: 110- 129 mg/dLBorderline High LDL: 130-159 mg/dLHigh LDL: 160-189 mg/dLVery High LDL: greater than or equal to 190 mg/dL HDL Cholesterol 57 >40 mg/dL [facility] Comment:Desirable HDL: great er than 40 mg/dL Note: This HDL assay may give artificially low results in patients with liver disease. Blood Venous blood specimen / Unknown 01/05/2023 7:32 AM EDT 01/05/2023 7:44 AM EDT us Arjun Name LAB BLOOD ORDERABLES Final Resul t [facility] [address] [place] [address] [phone] * Hm Colonoscopy (06/04/2017 9:23 AM EDT) Colonoscopy Normal Normal Narrative Brenna Leger - 06/04/2017 9:23 AM EDT Recommended follow up in 10 years us Historical Provider HEALTH MAINTENANCE Final Result from Last 3 Months or Most Recently Relevant to Health Maintenance [place] [address] [address] [address] STANDARD [facility] DUAL COMPLETE Care Teams Staff Editor Relationship Specialty Start Date End Date Name, MD Arjun [address] [place] [address] PCP - General Family Medicine 01/27/19 Mary Villegas PharmD [address] [place] [address] Pharmacist Internal Medicine 04/13/24
--- OUTSIDE RECORDS SUMMARY | 2024-06-27 16:01 | XMS_ITS | Encounter Summary ---
Author Organization [employer] Address [address] [facility] 7t [place] [address] Care Team Providers Care Local Government Legislator Name Role Phone Name, Arjun GODFREY Primary Care Provider [phone] Mary Villegas PharmD Unavailable [phone] Encounter Details Date Type Department Care Team ([facility] Contact Info) Description 07/28/2022 Orders Only [facility] [address] [place] [address] Katey Soto LPN Social History Tobacco Use Types Packs/Day [...] Description 07/21/2024 9:30 AM EDT Medication Management [facility] [address] [place] [address] Mary Villegas, PharmD [address] [place] [address] documented as of this encounter Visit Diagnoses Not on filedocumented in this encounter Care Teams Local Government Legislator Relationship Specialty Start Date End Date Name, MD Arjun [address] [place] [address] PCP - General Family Medicine 01/27/19 Mary Villegas, Massimo [address] [place] [phone] Pharmacist Internal Medicine 04/13/24 documented as of this encounter
--- OUTSIDE RECORDS SUMMARY | 2024-06-27 16:01 | XMS_ITS | Encounter Summary ---
Author Organization [employer] Address [address] [facility] 7[address] [place] [address] Care Team Providers Care Rubber Molder Name Role Phone Name, Arjun OGDFREY Primary Care Provider Mary Villegas PharmD Unavailable Encounter Details Date Type Department Care Team ([facility] Contact Info) Description 08/27/[address] [address] Name, MD Arjun [address] [place] [phone] Social History Tobacco Use Types Packs/Day Years [...] Description 07/21/2024 9:30 AM EDT Medication Management [address] [address] Mary Villegas, PharmD [address] [place] [phone] documented as of this encounter Procedures Procedure Name Priority Date/Time Associated Diagnosis Comments HM COLONOSCOPY Routine 06/04/2017 9:23 AM EDT documented in this encounter Results * Hm Colonoscopy (06/04/2017 9:23 AM EDT) Colonoscopy Normal Normal Narrative Brenna Leger - 06/04/2017 9:23 AM EDT Recommended follow up in 10 years us Historical Provider HEALTH MAINTENANCE Final Result documented in this encounter Visit Diagnoses Not on filedocumented in this encounter Care Teams Rubber Molder Relationship Specialty Start Date End Date Name, MD Arjun [address] [place] [address] PCP - General Family Medicine 01/27/19 Mary Villegas PharmD [address] [place] [address] Pharmacist Internal Medicine 04/13/24 documented as of this encounter
--- OUTSIDE RECORDS SUMMARY | 2024-06-27 16:01 | XMS_ITS | Encounter Summary ---
Author Organization [employer] Address [address] [facility] [address] [place] [address] Care Team Providers Care Patient Safety Tech Name Role Phone Name, Arjun GODFREY Primary Care Provider [phone] Mary Villegas PharmD Unavailable [phone] Encounter Details Date Type Department Care Team (Late Contact Info) Description 06/02/2022 Orders Only [facility] [address] [place] [address] Katey Soto LPN Social History Tobacco Use [...] Management [facility] [address] [place] [address] Mary Villegas, PharmD [address] [place] [address] documented as of this encounter Visit Diagnoses Not on filedocumented in this encounter Care Teams Patient Safety Tech Relationship Specialty Start Date End Date Name, MD Arjun [address] [place] [address] PCP - General Family Medicine 01/27/19 Mary Villegas, Massimo [address] [place] [phone] Pharmacist Internal Medicine 04/13/24 documented as of this encounter
== END 2024-06-27 13:50 | disposition home or self-care (01) ==
LOC: HO.MAMMO 13:49
PROVIDERS: PCP Internal Medicine Geriatric Medicine; Visit Provider Internal Medicine Geriatric Medicine
DX: Z13.89 Encounter for screening for other disorder (principal)

== ENCOUNTER 2024-07-05 10:17 | Emergency (ER) | payer OTHER, SELFPAY ==
--- NOTE | ~2024-07-05 | CT_ITS ---
EXAMINATION: CT HEAD WITHOUT CONTRAST CLINICAL INFORMATION: Headache and dizziness for one week. COMPARISON: None available. TECHNIQUE: Contiguous axial imaging was performed from the skull base to vertex without intravenous administration of contrast. This CT examination was performed using dose optimization techniques as appropriate, variously including the following: *Automated exposure control *Adjustment of mA and/or kV according to patient size (this includes techniques or standardized protocols for targeted exams where dose is matched to indication/reason for exam; i.e. extremities or head) *Use of iterative reconstruction technique FINDINGS: There is no evidence of intracranial hemorrhage or extra-axial fluid collection. There is no mass effect, or edema. No CT evidence of acute territorial infarct. Ventricles, sulci, and cisterns are normal in size and configuration for patient age. No hydrocephalus. No midline shift. Negative hyperdense MCA sign. Negative insular ribbon sign. Chronic appearing infarct right occipital lobe. Patchy periventricular and deep white matter hypoattenuation is consistent with mild small vessel ischemic changes. Normal pituitary. Atheromatous calcification of the bilateral carotid siphons and V4 segments vertebral arteries bilaterally. Globes and orbital contents image normally. No extracranial soft tissue abnormalities. The paranasal sinuses, mastoid air cells, and tympanic cavities are normally aerated. No suspicious bony abnormalities. There are no acute fractures evident. CT/CT head/brain wo IV con IMPRESSION: 1. No acute intracranial abnormality. 2. Chronic appearing infarct right occipital lobe. 3. Mild small vessel ischemic changes. Electronically signed by: Angelo Reyna MD 07/05/2024 02:46 PM EDT
[2024-07-05 10:35] VITALS: BP 145/72; PULSE 82; RESP 16; TEMP 36.2; O2SAT 100; BMI 21.2
--- NOTE | 2024-07-05 10:40 | ECG_ITS ---
Test Reason : DIZZY Blood Pressure : */* mmHG Vent. Rate : 77 BPM Atrial Rate : * BPM P-R Int : * ms QRS Dur : 112 ms QT Int : 390 ms P-R-T Axes : * 8 149 degrees QTcB Int : 441 ms Likely Normal sinus rhythm Cannot rule out Inferior infarct , age undetermined Anterior infarct (cited on or before 05-Mar-2009) ST & T wave abnormality, consider lateral ischemia Abnormal ECG When compared with ECG of 07-Mar-2020 10:14, No significant changes seen Questionable change in initial forces of Anterior leads Referred By: Generic ED Physician Electronically Signed By: FABIO LOVELACE
[2024-07-05 11:03] LABS: MANUAL DIFF FLAG NO
[2024-07-05 11:05] LABS: Basophils Percent Auto 0.6 % (0-2); Eosinophils Absolute Auto 0.4 X10*3/uL (0.0-0.4); Eosinophils Percent Auto 5.2 % (0-4); Hematocrit 42.4 % (37.0-47.0); Hemoglobin 14.4 g/dl (12.0-16.0); Imm Gran Abs Auto 0.02 X10*3/uL (0.00-0.03); Imm Gran Pct Auto 0.3 % (0.0-0.4); Lymphocytes Absolute Auto 1.8 X10*3/uL (1.2-4.9); Lymphocytes Percent Auto 26.2 % (20-40); Mean Corpuscular Hemoglobin 31.5 pg (27.0-33.0); Mean Corpuscular Volume 92.8 fL (80.0-98.0); Mean Platelet Volume 9.6 fL (9.4-12.3); Monocytes Absolute Auto 0.4 X10*3/uL (0.1-1.2); Monocytes Percent Auto 5.4 % (2-11); Neutrophils Absolute Auto 4.3 x10*3/uL (2.0-8.3); Neutrophils Percent Auto 62.3 % (45-73); Platelet Count 255 X10*3/uL (160-400); Red Blood Count 4.57 X10*6/uL (4.20-5.50); Red Cell Distribution Width 12.5 % (11.0-16.0); White Blood Count 6.9 X10*3/uL (4.8-10.8)
[2024-07-05 11:16] LABS: Anion Gap 17 (12-20); Blood Urea Nitrogen 12 mg/dL (9-16); Calcium 10.7 mg/dL (8.4-10.2); Carbon Dioxide 28 mmol/L (22-29); Chloride 99 mmol/L (96-108); Creatinine Clr Calc Pharmacy 41.1; Estimated Glomerular Filt Rate > 60; Glucose Random 153 mg/dL (60-115); Potassium 3.9 mmol/L (3.3-5.1); Sodium 140 mmol/L (135-145)
--- OUTSIDE RECORDS SUMMARY | 2024-07-05 18:45 | XMS_ITS | Encounter Summary ---
Author Organization [employer] Address [address] [facility] [address] [place] [address] Care Team Providers Care Microeconomics Professor Name Role Phone Name, Arjun GODFREY Primary Care Provider [phone] Mary Villegas PharmD Unavailable [phone] Reason for Visit * Reason Onset Date Comments ED excpect 07/05/2024 Encounter Details Date Type Department Care Team (Late st Contact Info) Description 07/05/2024 Telephone [facility] [address] [place] [address] Lokesh Rosado MD [address] [place] [address] ED excpect Social History Tobacco Use Types Packs/Day Years [...] AM EDT documented as of this encounter Miscellaneous Notes * Telephone Encounter - Samantha Dawson RN - 07/05/2024 9:59 AM EDT TC placed to [facility] Ed spoke to Louise pt presented with in retractable headache described as constant and worse in occipital area, also reported left hearing loss with ringing in ear and loss of balance/dizziness. ED expecting her documented in this encounter Plan of Treatment Upcoming Encounters Date Type Department Care Team (Late st Contact Info) Description 07/21/2024 9:30 AM EDT Medication Management [facility] [address] [place] [address] Mary Villegas, PharmD [address] [place], [place] [phone] documented as of this encounter Goals Goal Patient Goal Type Associated Problems Recent Progress Patient-Stated? Author Hemoglobin A1c < 7 Result Component 9.3(04/05/2024 2:22 PM EST) No Candi Oglesby, PharmD documented as of this encounter Visit Diagnoses Not on filedocumented in this encounter Additional Health Concerns Assessment Noted Time PHQ-9 Depression Total Score: 11 024 11:52 AM EDT documented as of this encounter Care Teams Microeconomics Professor Relationship Specialty Start Date End Date Name, MD Arjun [address] [place] [address] PCP - General Family Medicine 01/27/19 Mary Villegas PharmD [address] [place] [address] Pharmacist Internal Medicine 04/13/24 documented as of this encounter
--- OUTSIDE RECORDS SUMMARY | 2024-07-05 18:45 | XMS_ITS | Encounter Summary ---
Author Organization [employer] Address [address] [facility] [address] [place] [address] Care Team Providers Care Broth Setter Name Role Phone Name, Arjun GODFREY Primary Care Provider [phone] Mary Villegas PharmD Unavailable [phone] Encounter Details Date Type Department Care Team ([facility] Contact Info) Description 07/05/2024 9:40 AM EDT Office Visit [facility] [address] [place] [address] Lokesh Rosado MD [address] [place] [address] Acute intractable headache, unspecified headache type (Primary Dx); Dizziness; New onset tinnitus of left ear; Essential hypertension Social History Tobacco Use Types Packs/Day Years [...] AM EDT documented as of this encounter Last Filed Vital Signs Vital Sign Reading Time Taken Comments Blood Pressure 164/76 07/05/2024 8:36 AM EDT Pulse 84 07/05/2024 8:36 AM EDT Temperature - - Respiratory Rate - - Oxygen Saturation 100% 07/05/2024 8:36 AM EDT Inhaled Oxygen Concentration - - Weight - - Height - - Body Mass Index - - documented in this encounter Progress Notes * Samantha Dawson RN - 07/05/2024 9:40 AM EDT Patient presents to clinic with complaint of being dizzy and left sided head pain this started a few days ago her head feels like it weighs a thousand pounds, blurry vision at times and her ear is also painful. She states she has decreased appetite however is drinking fluids. Also complains that her hands and feet have been going numb at this time it is only her hands this is ongoing. Her blood sugar fasting this morning 134. She denies any Sob or chest pain states just experiencing dizziness and the head pain * Lokesh Rosado MD - 07/05/2024 9:40 AM EDT Subjective Patient ID: Vanessa Crouch is a 74 y.o. adult. HPI Has several day h/o constant diffuse headache, worse in occipital area, left ear hearing deficit and tinnitus, intermittent dizziness, described as losing her balance. Tried Tylenol with mild transient relief. No fever, photosensitivity, ot h/o migraines. Lives alone. Never smoked. No EtOH or illicit substances. Patient Active Problem List Diagnosis Chronic low back pain Diabetes mellitus (CMS/HCC) Essential hypertension Hyperglycemia due to type 2 diabetes mellitus (CMS/HCC) Overweight Pure hypercholesterolemia Type 2 diabetes mellitus without complication (CMS/HCC) The following portions of the chart were reviewed this encounter and updated as appropriate: Tobacco Allergies Meds Problems Med Hx Surg Hx Fam Hx Review of Systems Constitutional: Negative for fever. HENT: Positive for hearing loss and tinnitus. Respiratory: Negative for shortness of breath. Cardiovascular: Negative for chest pain. Gastrointestinal: Negative for abdominal pain. Skin: Negative for rash. Neurological: Positive for dizziness and headaches. Objective Physical Exam Constitutional: Appearance: Normal appearance. HENT: Right Ear: External ear normal. There is impacted cerumen. Left Ear: Tympanic membrane, ear canal and external ear normal. Nose: Nose normal. Mouth/Throat: Mouth: Mucous membranes are moist. Pharynx: Oropharynx is clear. Eyes: Conjunctiva/sclera: Conjunctivae normal. Pupils: Pupils are equal, round, and reactive to light. Cardiovascular: Rate and Rhythm: Normal rate and regular rhythm. Heart sounds: No murmur heard. Pulmonary: Effort: Pulmonary effort is normal. Breath sounds: Normal breath sounds. Musculoskeletal: General: Normal range of motion. Cervical back: No tenderness. Skin: Findings: No rash. Neurological: Mental Status: Vanessa is alert. Cranial Nerves: Cranial nerves 2-12 are intact. Sensory: Sensation is intact. Motor: Motor function is intact. No pronator drift. Gait: Gait is intact. Psychiatric: Mood and Affect: Mood normal. Behavior: Behavior normal. Procedures Assessment/Plan Diagnoses and all orders for this visit: Acute intractable headache, unspecified headache type ? Etiology. Referred to the ED now for further evaluation and treatment. Dizziness as above New onset tinnitus of left ear return to clinic if not improving Essential hypertension Has home BP monitor. Reviewed BP parameters, given written BP log that includes BP parameters, to keep daily. Call if BP readings are elevated. documented in this encounter Plan of Treatment Upcoming Encounters Date Type Department Care Team (Late st Contact Info) Description 07/21/2024 9:30 AM EDT Medication Management [facility] [address] [place] [address] Mary Villegas PharmD [address] [place] [address] documented as of this encounter Goals Goal Patient Goal Type Associated Problems Recent Progress Patient-Stated? Author Hemoglobin A1c < 7 Result Component 9.3(04/05/2024 2:22 PM EST) Candi Moore PharmD documented as of this encounter Visit Diagnoses Diagnosis Acute intractable headache, unspecified headache type- Primary Dizziness Dizziness and giddiness New onset tinnitus of left ear Essential hypertension Unspecified essential hypertension documented in this encounter Additional Health Concerns Assessment Noted Time PHQ-9 Depression Total Score: 11 024 11:52 AM EDT documented as of this encounter Care Teams Broth Setter Relationship Specialty Start Date End Date Name, MD Arjun [address] [place] [id number] PCP - General Family Medicine 01/27/19 Mary Villegas PharmD [address] [place] [address] Pharmacist Internal Medicine 04/13/24 documented as of this encounter
--- OUTSIDE RECORDS SUMMARY | 2024-07-05 18:45 | XMS_ITS | Encounter Summary ---
Author Organization [employer] Address [address] [facility] [address] [place] [address] Care Team Providers Care Thickener Operator Name Role Phone Name, Arjun GODFREY Primary Care Provider [phone] Mary Villegas PharmD Unavailable [phone] Reason for Visit * Reason Comments Med Refill Encounter Details Date Type Department Care Team ([facility] Contact Info) Description 05/07/2022 Refill [facility] [address] [place] [phone] Arjun Willard MD [address] [place] [phone] Social History Tobacco Use Types Packs/Day Years [...] Description 07/21/2024 9:30 AM EDT Medication Management [facility] [address] [place] [phone] Mary Villegas, PharmD [address] [place] [address] documented as of this encounter Visit Diagnoses Not on filedocumented in this encounter Care Teams Thickener Operator Relationship Specialty Start Date End Date Arjun Willard MD [address] [place] [address] PCP - General Family Medicine 01/27/19 Mary Villegas, Massimo [address] [place] [address] Pharmacist Internal Medicine 04/13/24 documented as of this encounter
--- OUTSIDE RECORDS SUMMARY | 2024-07-05 18:45 | XMS_ITS | Encounter Summary ---
Author Organization [employer] Address [address] [facility] [address] [place] [address] Care Team Providers Care Play Reader Name Role Phone Name, Arjun GODFREY Primary Care Provider [phone] Mary Villegas PharmD Unavailable [phone] Encounter Details Date Type Department Care Team (Late Contact Info) Description 06/02/2022 Orders Only [facility] [address] [place] [address] Katey Soto LPN Social History Tobacco Use [...] Description 07/21/2024 9:30 AM EDT Medication Management [facility] [address] [place] [address] Mary Villegas, PharmD [address] [place] [address] documented as of this encounter Visit Diagnoses Not on filedocumented in this encounter Care Teams Play Reader Relationship Specialty Start Date End Date Name, MD Arjun [address] [place] [address] PCP - General Family Medicine 01/27/19 Mary Villegas, Massimo [address] [place] [phone] Pharmacist Internal Medicine 04/13/24 documented as of this encounter
--- OUTSIDE RECORDS SUMMARY | 2024-07-05 18:45 | XMS_ITS | Encounter Summary ---
Author Organization [employer] Address [address] [facility] [address] [place] [address] Care Team Providers Care Study Hall Supervisor Name Role Phone Name, Arjun GODFREY Primary Care Provider [phone] Mary Villegas PharmD Unavailable [phone] Encounter Details Date Type Department Care Team ([facility] Contact Info) Description 07/28/[address] [facility] [address] [place] [address] Katey Soto LPN Social History Tobacco Use [...] Description 07/21/2024 9:30 AM EDT Medication Management [facility] [address] [place] [address] Mary Villegas, PharmD [address] [place] [address] documented as of this encounter Visit Diagnoses Not on filedocumented in this encounter Care Teams Study Hall Supervisor Relationship Specialty Start Date End Date Name, MD Arjun [address] [place] [address] PCP - General Family Medicine 01/27/19 Mary Villegas, Massimo [address] [place] [phone] Pharmacist Internal Medicine 04/13/24 documented as of this encounter
--- OUTSIDE RECORDS SUMMARY | 2024-07-05 18:45 | XMS_ITS | Encounter Summary ---
Author Organization [employer] Address [address] [facility] [address] [place] [address] Care Team Providers Care Lye Treater Name Role Phone Name, Arjun GODFREY Primary Care Provider [phone] Mary Villegas PharmD Unavailable Encounter Details Date Type Department [facility] Contact [facility] Description 08/27/[address] [address] Name, MD Arjun [address] [place] [phone] Social History Tobacco Use Types Packs/Day Years [...] Description 07/21/2024 9:30 AM EDT Medication Management [address] [address] Mary Villegas, PharmD [address] [place] [address] documented as of this encounter Procedures Procedure [...] on filedocumented in this encounter Care Teams Lye Treater Relationship Specialty Start Date End Date Name, MD Arjun [address] [place] [address] PCP - General Family Medicine 01/27/19 Mary Villegas PharmD [address] [place] [address] Pharmacist Internal Medicine 04/13/24 documented as of this encounter
--- OUTSIDE RECORDS SUMMARY | 2024-07-05 18:46 | XMS_ITS | Encounter Summary ---
Author Organization [employer] Address [address] [facility] [address] [place] [address] Care Team Providers Care Vending Machine Collector Name Role Phone Name, Arjun GODFREY Primary Care Provider [phone] Mary Villegas PharmD Unavailable [phone] Reason for Visit * Reason Comments Med Refill Encounter Details Date Type Department Care Team (Late st Contact Info) Description 09/06/2022 Refill [facility] [address] [place] [phone] Tona Canales FNP [address] [place] [address] Dept [place] [address] Social History Tobacco Use Types Packs/Day Years [...] Description 07/21/2024 9:30 AM EDT Medication Management [facility] [address] [place] [phone] Mary Villegas, PharmD [address] [place] [address] documented as of this encounter Visit Diagnoses Not on filedocumented in this encounter Care Teams Vending Machine Collector Relationship Specialty Start Date End Date Name, MD Arjun [address] [place] [address] PCP - General Family Medicine 01/27/19 Mary Villegas PharmD [address] [place] [address] Pharmacist Internal Medicine 04/13/24 documented as of this encounter
--- OUTSIDE RECORDS SUMMARY | 2024-07-05 18:46 | XMS_ITS | Clinical Summary ---
Author Organization [employer] Address [address] [facility] 7t [place] [address] Care Team Providers Care School Program Director Name Role Phone Name, Arjun GODFREY Primary Care Provider [phone] Mary Villegas PharmD Unavailable [phone] Allergies Active Allergy Reactions Criticality Noted Date Comments Diphenhydramine Nausea,Vomiting 01/07/2021 Medications Blood Glucose Monitoring Suppl (ONE TOUCH ULTRA 2) w/Device kitIndications :Type 2 diabetes mellitus with hyperglycemia, without long-term current use of insulin ([facility]) Use to check blood glucose by subcutaneous route two times every day. 1 kit 04/07/19 24 Active [email or web address] Delica Lancets 33G miscIndication s:Type 2 diabetes mellitus with hyperglycemia, without long-term current use of insulin ([facility]) Use to check blood glucose by subcutaneous route two time every day 100 each 11 04/07/19 24 Active WineShopTouch Ultra Test test stripIndicatio ns:Type 2 diabetes mellitus with other specified complication, unspecified whether snf insulin use ([facility]) TEST BLOOD SUGAR TWICE DAILY 100 strip 11 07/01/19 24 Active ascorbic acid (Vitamin C) 500 MG tablet Once per day. Ac tive zinc gluconate 50 MG tablet Once per day. Act ines acetaminophen (Tylenol) 500 MG tablet Take by mouth. Take 1-2 tabs PRN pain. Do not exceed 6 tabs in 24 hours. (OTC) Active SITagliptin-me tFORMIN (Janumet) 50-1000 MG tablet Take 1 tablet by mouth with breakfast and with evening meal. 60 tablet 04/13/192 026 Active empagliflozin (Jardiance) 25 MG Take 1 tablet (25 mg) by mouth Once per day. 30 tablet 11 05/13/19 25 026 Active atorvastatin (Lipitor) 40 MG tabletIndicati ons:High cholesterol TAKE 1 TABLET BY MOUTH EVERY MORNING 90 tablet 3 05/20/19 25 Active omeprazole (PriLOSEC) [address] capsule TAKE 1 CAPSULE BY MOUTH EVERY MORNING BEFORE A MEAL 90 capsule 1 06/29/19 25 Active lisinopril 5 MG tablet TAKE 1 TABLET BY MOUTH EVERY MORNING 90 tablet 1 06/29/19 25 Active omeprazole (PriLOSEC) [address] capsule TAKE 1 CAPSULE BY MOUTH EVERY MORNING BEFORE A MEAL 90 capsule 1 12/17/19 24 025 Discontinued lisinopril 5 MG tablet TAKE 1 TABLET BY MOUTH EVERY MORNING 90 tablet 1 12/21/19 24 025 Discontinued Active Problems Problem Noted Date Diagnosed Date Chronic low back pain 12/30/2022 12/30/2022 Overweight 11/17/2017 12/30/2022 Type 2 diabetes mellitus without complication 12/30/2022 Hyperglycemia due to type 2 diabetes mellitus 12/30/2022 Diabetes mellitus 06/11/2011 12/30/2022 Essential hypertension 09/12/2010 Pure hypercholesterolemia 09/12/20102022 Encounters Date Type Department Care Team Description 07/05/2024 9:40 AM EDT Office Visit [facility] [address] [place] [address] Lokesh Rosado MD Acute intractable headache, unspecified headache type (Primary Dx); Dizziness; New onset tinnitus of left ear; Essential hypertension 07/05/2024 Orders Only GENERIC EXTERNAL DATA DEPARTMENT Provider, Generic External Data 07/05/2024 Telephone [facility] [address], [place] [phone] Lokesh Rosado MD ED excpect 06/27/2024 Refill [facility] [address], [place] [phone] Name, MD Arjun 06/20/2024 10:00 AM EDT Office Visit [facility] OPTOMETRY [address] [place], [place] [phone] Lula Torrez, OD Diabetes type 2, no ocular involvement ([facility]) (Primary Dx); Amblyopia, refractive, left; Combined forms of age-related cataract of both eyes; Vitreomacular traction syndrome of both eyes; Presbyopia 06/20/2024 Travel 06/16/2024 Travel 05/19/2024 Refill [facility] [address], [place] [phone] Name, MD Arjun High cholesterol 04/14/2024 Abstract [facility] [address] [place] [address] Name, MD Arjun 04/13/2024 Travel from Last 3 Months Immunizations Name Administration [...] Pulse 84 07/05/2024 8:36 AM EDT Temperature 36.7 ??C (98 ??F) 04/05/2024 2:20 PM EST Respiratory Rate 16 04/05/2024 2:20 PM EST Oxygen Saturation 100% 07/05/2024 8:36 AM EDT Inhaled Oxygen Concentration - - Weight 47.8 kg (105 lb 6.4 oz) 04/05/2024 2:20 P M EST Height 144.8 cm (4' 9 ) 04/05/2024 2:20 PM EST Body Mass Index 22.81 04/05/2024 2:20 PM EST Plan of Treatment Upcoming Encounters Date Type Department Care Team (Late st Contact Info) Description 07/21/2024 9:30 AM EDT Medication Management [facility] [address] [place] [address] Mary Villegas, PharmD [address] [place] [address] Health Maintenance Due Date Last Done Comments Hepatitis B Vaccines (3 of 3 - 19+ 3-dose series) 12/12/2011 08/11/2011, 06/11/2011 Diabetes: Foot Exam 01/02/2024 01/01/2023, 01/01/2023, 01/01/2023, Additional history exists Lipid Panel 01/06/2024 01/05/2023, 08/15, 12/10/2020 Diabetes: Hemoglobin A1C 07/04/2024 025, 01/04/2024, 05/18/2023, Additional history exists SDOH Screening 12/23/2024 12/24/2023 Alcohol/Substance Use Screening 01/03/2025 01/04/2024 Depression Screening 01/03/2025 01/04/2024, 01/04/20 24 Diabetes: Urine Protein Screening 01/03/2025 01/04/2024, 01/05/2023, 12/11/2020, Additional history exists Tobacco Screening 07/05/2025 07/05/2024 Eye Exam 06/20/2026 06/20/2024, 04/0 09/2024, 06/20/2024, Additional history exists DTaP/Tdap/Td Vaccines (3 [...] older Completed 04/20/2024 Zoster Vaccines Completed 06/16/2024, 07/2024, 11/17/2017 CT Colonography Discontinued FIT DNA/Cologuard Discontinued [...] Procedure Name Priority Date/Time Associated Diagnosis Comments CT HEAD WO CONTRAST Routine 07/05/2024 1 :48 PM EDT BASIC METABOLIC PANEL Routine 07/05/2024 10:58 AM EDT CBC WITH AUTO DIFFERENTIAL Routine 07/05/2024 10:58 AM EDT OCT, RETINA - OU - BOTH EYES Routine 06/20/2024 10:00 AM EDT Vitreomacular traction syndrome of both eyes BASIC METABOLIC PANEL Routine 04/13/2024 9:12 AM EST Type 2 diabetes mellitus with hyperglycemia, without long-term current use of insulin ([facility]) POCT GLYCATED HEMOGLOBIN, TOTAL Routine 04/05/2024 2:22 PM EST Type 2 diabetes mellitus with hyperglycemia, without long-term current use of insulin ([facility]) ALBUMIN, RANDOM URINE W/CREATININE Routine 01/04/2024 11:30 [...] Recently Relevant to Health Maintenance Results * CT Head w/o Contrast (07/05/2024 1:48 PM EDT) Anatomical Region Laterality Modality Head, Neck Computed Tomogra phy 07/05/2024 1:48 PM EDT Narrative 07/05/2024 2:49 PM EDT ? [facility] ?[address] ?[place] [address] ? CT Scan Report ? Signed ? Patient: Vanessa Crouch ?MR#: [id number] ?? [id number] ? : 1950 ?Acct:[id number] ? Age/Sex: 74 / F ?ADM Date: 07/05/24 ? Loc: HO.ED ? Attending Dr: ? Ordering Physician: Alton Keating ?? Date of Service: 07/05/24 ?? Procedure(s): CT head/brain wo IV con ?? Accession Number(s): [id number] ? cc: Alton Keating; NameArjun MD ? Report Number: ?? [id number]: Total DLP = ??582.00 mGy-cm ?? EXAMINATION: ?? CT HEAD WITHOUT CONTRAST ? CLINICAL INFORMATION: ?? Headache and dizziness for one week. ? COMPARISON: ?? None available. ? TECHNIQUE: ?? Contiguous axial imaging was performed from the skull base to vertex ?? without intravenous administration of contrast. ? This CT examination was performed using dose optimization techniques as ?? appropriate, variously including the following: ?? *Automated exposure control ?? *Adjustment of mA and/or kV according to patient size (this includes ?? techniques or standardized protocols for targeted exams where dose is ?? matched to indication/reason for exam; i.e. extremities or head) ?? *Use of iterative reconstruction technique ? FINDINGS: ?? There is no evidence of intracranial hemorrhage or extra-axial fluid ?? collection. ?? There is no mass effect, or edema. No CT evidence of acute territorial ?? infarct. ?? Ventricles, sulci, and cisterns are normal in size and configuration ?? for patient age. No hydrocephalus. No midline shift. ?? Negative hyperdense MCA sign. Negative insular ribbon sign. ? Chronic appearing infarct right occipital lobe. ?? Patchy periventricular and deep white matter hypoattenuation is ?? consistent with mild small vessel ischemic changes. ?? Normal pituitary. ?? Atheromatous calcification of the bilateral carotid siphons and V4 ?? segments vertebral arteries bilaterally. ? Globes and orbital contents image normally. ?? No extracranial soft tissue abnormalities. ? The paranasal sinuses, mastoid air cells, and tympanic cavities are ?? normally aerated. ?? No suspicious bony abnormalities. There are no acute fractures evident. ? CT/CT head/brain wo IV con ?? IMPRESSION: ?? 1. No acute intracranial abnormality. ?? 2. Chronic appearing infarct right occipital lobe. ?? 3. Mild small vessel ischemic changes. ? Electronically signed by: ??Angelo Reyna MD ??07/05/2024 02:46 PM EDT RP ?? Workstation: [id number] ? Dictated By: ?Angelo Reyna MD ? Signed By: ?<Electronically signed by Angelo Reyna MD in OV> ?07/05/24 1446 ? DD/ 1348 ? TD/TT: 07/05/24 1428 ? [employer]: ? Procedure Note Brina Torre - 07/05/[address] [address] [address] Scan Report Signed Patient: Roshni Crouch#: [id number] : 9Acct:[id number] Age/Sex: 74 / FADM Date: 07/05/24 Loc: HO.ED Attending Dr: Ordering Physician: Alton Keating Date of Service: 07/05/24 Procedure(s): CT head/brain wo IV con Accession Number(s): [id number] cc: Alton Keating; Name,Arjun Report Number: [id number]: Total DLP = 582.00 mGy-cm EXAMINATION: CT HEAD WITHOUT CONTRAST CLINICAL INFORMATION: Headache and dizziness for one week. COMPARISON: None available. TECHNIQUE: Contiguous axial imaging was performed from the skull base to vertex without intravenous administration of contrast. This CT examination was performed using dose optimization techniques as appropriate, variously including the following: *Automated exposure control *Adjustment of mA and/or kV according to patient size (this includes techniques or standardized protocols for targeted exams where dose is matched to indication/reason for exam; i.e. extremities or head) *Use of iterative reconstruction technique FINDINGS: There is no evidence of intracranial hemorrhage or extra-axial fluid collection. There is no mass effect, or edema. No CT evidence of acute territorial infarct. Ventricles, sulci, and cisterns are normal in size and configuration for patient age. No hydrocephalus. No midline shift. Negative hyperdense MCA sign. Negative insular ribbon sign. Chronic appearing infarct right occipital lobe. Patchy periventricular and deep white matter hypoattenuation is consistent with mild small vessel ischemic changes. Normal pituitary. Atheromatous calcification of the bilateral carotid siphons and V4 segments vertebral arteries bilaterally. Globes and orbital contents image normally. No extracranial soft tissue abnormalities. The paranasal sinuses, mastoid air cells, and tympanic cavities are normally aerated. No suspicious bony abnormalities. There are no acute fractures evident. CT/CT head/brain wo IV con IMPRESSION: 1. No acute intracranial abnormality. 2. Chronic appearing infarct right occipital lobe. 3. Mild small vessel ischemic changes. Electronically signed by: Angelo Reyna MD 07/05/2024 02:46 PM EDT Dictated By: Angelo Renya MD Signed By: <Electronically signed by Angelo Reyna MD in OV> 07/05/24 1446 DD/ 1348 TD/TT: 07/05/24 1428 Refinery [employer]: us [facility] External Provider IMG CT PROCEDURES Final Result * (ABNORMAL) CBC auto differential (07/05/2024 10:58 AM EDT) White Blood Count 6.9 4.8 - 10.8 X10*3/uL [facility] Red Blood Count 4.57 4.20 - 5.50 X10*6/uL [facility] Hemoglobin 14.4 12.0 - 16.0 g/dl [facility] Hematocrit 42.4 37.0 - 47.0 % [facility] Mean Corpuscular Volume 92.8 80.0 - 98.0 fL [facility] Mean Corpuscular Hemoglobin 31.5 27.0 - 33.0 pg [facility] Mean Corpuscular HGB Conc 34.0 31.0 - 35.0 g/dl [facility] Red Cell Distribution Width 12.5 11.0 - 16.0 % [facility] Platelet Count 255 160 - 400 X10*3/uL [facility] Mean Platelet Volume 9.6 9.4 - 12.3 fL [facility] Neutrophils Percent Auto 62.3 45 - 73 % [facility] Imm Gran Pct Auto 0.3 0.0 - 0.4 % [facility] Lymphocytes Percent Auto 26.2 20 - 40 % [facility] Monocytes Percent Auto 5.4 2 - 11 % [facility] Eosinophils Percent Auto 5.2(H) 0 - 4 % [facility] Basophils Percent Auto 0.6 0 - 2 % [facility] NRBC Pct Auto 0.0 0.0 - 0.2 /100WBC [facility] Neutrophils Absolute Auto 4.3 2.0 - 8.3 x10*3/uL [facility] Imm Gran Abs Auto 0.02 0.00 - 0.03 X10*3/uL [facility] Lymphocytes Absolute Auto 1.8 1.2 - 4.9 X10*3/uL [facility] Monocytes Absolute Auto 0.4 0.1 - 1.2 X10*3/uL [facility] Eosinophils Absolute Auto 0.4 0.0 - 0.4 X10*3/uL [facility] Basophils Absolute Auto 0.0 0.0 - 0.2 X10*3/uL [facility] NRBC Abs Auto 0.000 0.0 - 0.012 X10*3/uL [facility] 07/05/2024 10:5 8 AM EDT 07/05/2024 11:02 AM EDT us Generic External Data Provider LAB BLOOD ORDERAB LES Final Result [facility] [address] [place] [phone] * (ABNORMAL) Basic Metabolic Panel (07/05/2024 10:58 AM EDT) Only the most recent of2 resultswithin the time period is included. Sodium 140 135 - 145 mmol/L [facility] Potassium 3.9 3.3 - 5.1 mmol/L [facility] Chloride 99 96 - 108 mmol/L [facility] Carbon Dioxide 28 22 - 29 mmol/L [facility] Anion Gap 17 12 - 20 [facility] Urea Nitrogen (BUN) 12 9 - 16 mg/dL [facility] Creatinine, Serum 0.71 0.5 - 1.4 mg/dL [facility] Creatinine Clr Calc Pharmacy 41.1 [facility] Comment:Provided height and weight: 144.78 cm,44.452 kg.eGFR (calculated from the MDRD study equation) and eCrCl(calculated from the Cockcroft-Gault equation) are based ondifferent parameters and may not yield comparable results.If eCrCl result is absurd, please check patient'sheight/weight. Estimated Glomerular Filt Rate >60 [facility] Comment:Chronic Kidney Disea se: Estimated GFR < 60 mL/min/1.92u4Pvqueh Kidney Disease: Estimated GFR < 15 mL/min/1.73m2 Glucose 153(H) 60 - 115 mg/dL [facility] Calcium 10.7(H) 8.4 - 10.2 mg/dL [facility] 07/05/2024 10:5 8 AM EDT 07/05/2024 11:02 AM EDT Generic External Data Provider LAB BLOOD ORDERAB LES Final Result [facility] [address] [place] [address] [phone] * OCT, Retina - OU - Both Eyes (06/20/2024 10:00 AM EDT) Narrative Lula Torrez, OD - 06/30/2024 3:34 PM EDT Images from the original result were not included. OCT [facility] [employer] Optical Coherence Tomography Interpretation Report Measurements: OD ??OS Macula Thickness ??204 microns ??234 microns Test findings: OD: Mild elevation of foveal contour with VMT, no cystoid macular edema (CME), no retinal pigment epithelium (RPE) disruption, no SRF OS: Mild table top appearance of foveal with VMT, no cystoid macular edema (CME), no retinal pigment epithelium (RPE) disruption, no SRF Impression and Plan: Mild vitreomacular traction present in both eyes. No treatment necessary. Will monitor at her next exam. Lula Torrez OD OPHTH TOMOGRAPHY Final Result * (ABNORMAL) POCT HGB A1C (04/05/2024 2:22 PM EST) Hemoglobin A1C 9.3(A) 4.0 - 6.0 % QC Media Lot # [id number] Lot# Expiration Date [id number] Blood 04/05/2024 2:22 PM EST Arjun Willard MD POINT OF CARE TEST ENTER/EDIT OR DERABLES Final Result * Albumin, Random Urine W/Creatinine (01/04/2024 11:30 AM EDT) Creatinine, Urine 55.44 mg/dL [facility] Microalbumin Urine 9.0 mg/L [facility] Microalbum Creatinine Ratio Ur 16.2 <30 ug/mg cr [facility] Comment:Albumin/Creatinine R atio Reference Ranges: Normal: < 30 ug/mg creatinine Microalbuminuria: 30 - 300 ug/mg creatinineClinical Albuminuria: > 300 ug/mg creatinine Urine (Urine, Random) 01/04/2024 11:30 AM EDT 01/04/2024 1:10 PM EDT us Arjun Willard MD LAB URINE ORDERABLES Final Resul t Performing Organization Address [facility] de Phone Number [facility] [address] [place] [phone] * Hepatitis C Ab (01/05/2023 7:32 AM EDT) Hepatitis C Antibody Nonreactive Nonreactive [facility] Comment:Antibodies to HCV no t detected; does not exclude early acuteHCV infection. Blood Venous blood specimen / Unknown 01/05/2023 7:32 AM EDT 01/05/2023 7:44 AM EDT us Arjun Willard MD LAB BLOOD ORDERABLES Final Resul t Performing Organization Address [facility] de Phone Number [facility] [address] [place] [phone] * Lipid Panel, Standard (01/05/2023 7:32 AM EDT) Triglycerides 68 <150 mg/dL [facility] Comment:Desirable Triglyceri de: less than 150 mg/dLBorderline High Triglyceride 150-199 mg/dLHigh Triglyceride: 200-499 mg/dLVery High Triglyceride: greater than or equal to 5OO mg/dL Cholesterol 131 <200 mg/dL [facility] Comment:Desirable Cholestero l: less than 200 mg/dLBorderline High Cholesterol: 200-239 mg/dLHigh Cholesterol: greater than 239 mg/dL LDL Cholesterol Calculated 61 <100 mg/dL [facility] Comment:Desirable LDL: less than 100 mg/dLNear Optimal/Above Optimal LDL: 110- 129 mg/dLBorderline High LDL: 130-159 mg/dLHigh LDL: 160-189 mg/dLVery High LDL: greater than or equal to 190 mg/dL HDL Cholesterol 57 >40 mg/dL [facility] Comment:Desirable HDL: great er than 40 mg/dL Note: This HDL assay may give artificially low results in patients with liver disease. Blood Venous blood specimen / Unknown 01/05/2023 7:32 AM EDT 01/05/2023 7:44 AM EDT us Arjunanita Willard MD LAB BLOOD ORDERABLES Final Resul t [facility] [address] [place] [phone] * Hm Colonoscopy (06/04/2017 9:23 AM EDT) Colonoscopy Normal Normal Narrative Brenna Leger - 06/04/2017 9:23 AM EDT Recommended follow up in 10 years us Historical Provider HEALTH MAINTENANCE Final Result from Last 3 Months or Most Recently Relevant to Health Maintenance Insurance [facility] STANDARD [facility] DUAL COMPLETE Care Teams School Program Director Relationship Specialty Start Date End Date Name, MD Arjun [address] [place] [address] PCP - General Family Medicine 01/27/19 Mary Villegas PharmD [address] [place] [address] Pharmacist Internal Medicine 04/13/24
--- OUTSIDE RECORDS SUMMARY | 2024-07-05 18:46 | XMS_ITS | Encounter Summary ---
Author Organization [employer] Address [address] [facility] 7t [place] [address] Care Team Providers Care [employer] Worker Name Role Phone Name, Arjun GODFREY Primary Care Provider [phone] Mary Villegas PharmD Unavailable [phone] Encounter Details Date Type Department Care Team ([facility] Contact Info) Description 10/03/2022 Orders Only [facility] [address] [place] [phone] Richa Rowley LPN Social History Tobacco Use [...] Upcoming Encounters Date Type Department Care Team ([facility] Contact Info) Description 07/21/2024 9:30 AM EDT Medication Management [facility] [address] [place] [phone] Mary Villegas, PharmD [address] [place] [address] documented as of this encounter Procedures Procedure Name Priority Date/Time Associated Diagnosis Comments BI MAMMOGRAM SCREENING TOMOSYNTHESIS BILATERAL Routine 10/31/2022 9:35 AM EDT documented in this encounter Results * BI Mammogram Screening Tomosynthesis Bilateral (10/31/2022 9:35 AM EDT) Anatomical Region Laterality Modality Breast Bilateral Mammography 10/31/2022 9:35 AM EDT Narrative 11/21/2022 5:51 AM EDT ? [facility] ? [address] ?[place] [address] ? Mammography Report ? Signed ? Patient: Crouch,Vanessa ?MR#: [id number] ?? [id number] ? : 1950 ?Acct:[id number] ? Age/Sex: 72 / F ?ADM Date: 10/31/22 ? Loc: HO.MAMMO ? Attending Dr: Arjun Name MD ? Ordering Physician: Name,Arjun MD ?Results: 2Benign Fi ?? ndings ? Date of Service: 10/31/22 ?Follow Up: 1 Year From Orig ?? inal Mammogram ? Procedure(s): MM tomosynthesis screening BI ?? Accession Number(s): [id number] ? cc: Name,Arjun GODFREY ? EXAMINATION: ?? [...] 0547 ? DD/ 0935 ? TD/TT: ? Necktie Turner: ? Procedure Note Yelitza, Image - 11/21/2022 [facility] [address] [place] [address] Mammography Report Signed Patient: Roshni Crouch#: [id number] : 9Acct:[id number] Age/Sex: 72 / FADM Date: 10/31/22 Loc: [facility] Attending Dr: Arjun Willard MD Ordering Physician: Arjun Willardesults: 2Benign Fi ndbryan Date of Service: 10/31/22Follow Up: 1 Year From Orig inal Mammogram Procedure(s): MM tomosynthesis screening BI Accession Number(s): [id number] cc: Arjun Willard MD EXAMINATION: MM SCREENING [...] in OV> 11/21/22 0547 DD/ 0935 TD/TT: Necktie Turner: Arjun Willard MD IMG BI PROCEDURES Edited Result - Final documented in this encounter Visit Diagnoses Not on filedocumented in this encounter Care Teams [employer] Worker Relationship Specialty Start Date End Date Name, MD Arjun [address] [place] [address] PCP - General Family Medicine 01/27/19 Mary Villegas PharmD [address] [place] [address] Pharmacist Internal Medicine 04/13/24 documented as of this encounter
--- OUTSIDE RECORDS SUMMARY | 2024-07-05 18:46 | XMS_ITS | Encounter Summary ---
Author Organization [employer] Address [address] [place] [address] Care Team Providers Care Ship Harbor Pilot Name Role Phone Name, Arjun GODFREY Primary Care Provider [phone] Mary Villegas PharmD Unavailable [phone] Reason for Referral * Consultation (Routine) - Pending Review Specialty Diagnoses / Procedures Referred By Audie erickson Referred To Contact Ophthalmology Diagnoses Combined forms of age-related cataract of both eyes Lula Torrez, OD [address] [place] [address] Phone: tel: fax: Conner Hernandez MD [address] [place] [phone] Phone: tel: Referral ID Status Reason Start Date Expiration Date Visits Requested Visits Authorized [id number] Pending Review Specialty Services Required 06/30/2024 06/30/2025 1 1 Reason for Visit * Reason Comments Diabetic Eye Exam Encounter Details Date Type Department Care Team (Late st Contact Info) Description 06/20/2024 10:00 AM EDT Office Visit [facility] OPTOMETRY [address] [place] [address] Lula Torrez, OD [address] [place] [address] Diabetes type 2, no ocular involvement (CMS/HCC) (Primary Dx); Amblyopia, refractive, left; Combined forms of age-related cataract of both eyes; Vitreomacular traction syndrome of both eyes; Presbyopia Social History Tobacco Use Types Packs/Day Years [...] AM EDT documented as of this encounter Progress Notes * Lula Torrez, OD - 06/20/2024 10:00 AM EDT Eye Care Progress Note Patient ID: Vanessa Crouch is a 74 y.o. adult. Chief Complaint Diabetic Eye Exam HPI Here for a diabetic eye exam. She has Type II NIDDM. Her last HbA1c was 9.3% on 04/05/2024. Today the patient complains of irritation and burning in both eyes. She is not self treating her symptoms. She reports that she uses OTC reading glasses for television watching and reading. Her last eye exam was here on 12/29/2022. Last edited by Lula Torrez OD on 06/30/2024 3:30 PM. Current Outpatient Medications Medication Sig Dispense Refill acetaminophen (Tylenol) 500 MG tablet Take by mouth. Take 1-2 tabs PRN pain. Do not exceed 6 tabs in 24 hours. (OTC) ascorbic acid (Vitamin C) 500 MG tablet Once per day. atorvastatin (Lipitor) 40 MG tablet TAKE 1 TABLET BY MOUTH EVERY MORNING 90 tablet 3 Blood Glucose Monitoring Suppl (ONE TOUCH ULTRA 2) w/Device kit Use to check blood glucose by subcutaneous route two times every day. 1 kit 0 empagliflozin (Jardiance) 25 MG Take 1 tablet (25 mg) by mouth Once per day. 30 tablet 11 lisinopril 5 MG tablet TAKE 1 TABLET BY MOUTH EVERY MORNING 90 tablet 1 omeprazole (PriLOSEC) [address] capsule TAKE 1 CAPSULE BY MOUTH EVERY MORNING BEFORE A MEAL 90 capsule 1 OneTouch Delica Lancets 33G [facility] Use to check blood glucose by subcutaneous route two time every day 100 each 11 OneTouch Ultra Test test strip TEST BLOOD SUGAR TWICE DAILY 100 strip 11 SITagliptin-metFORMIN (Janumet) 50-1000 MG tablet Take 1 tablet by mouth with breakfast and with evening meal. 60 tablet 11 zinc gluconate 50 MG tablet Once per day. No current facility-administered medications for this visit. 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 Social History Socioeconomic History Marital status: Spouse name: Not on file Number of children: Not on file Years of education: Not on file Highest education level: Not on file Occupational History Not on file Tobacco Use Smoking status: Never Smokeless tobacco: Never Vaping Use Vaping status: Never Used Substance and Sexual Activity Alcohol use: Never Drug use: Never Sexual activity: Not on file Other Topics Concern Not on file Social History Narrative Not on file Social Drivers of Health Food Insecurity: Low Risk (12/29/2022) Food Insecurity Within the past 12 months, you worried that your food would run out before you got money to buy more:: Never True Within the past 12 months,the food you bought just didn't last and you didn't have enough money to get more: : Never True Transportation Needs: Low Risk (12/29/2022) Transportation In the past 12 months, has lack of transportation kept you from medical appts, meetings, work or from getting things needed for daily living? : No Intimate Partner Violence: Not on file Housing Stability: Low Risk (12/29/2022) Housing Stability What is your housing situation today?: I have housing Think about the place you live. Do you have problems with any of the following? : None of the above Allergies Allergen Reactions Diphenhydramine Nausea and Vomiting ROS Positive for: Eyes Negative for: Constitutional, Gastrointestinal, Neurological, Skin, Genitourinary, Musculoskeletal,HENT, Endocrine, Cardiovascular, Respiratory, Psychiatric, Allergic/Imm, Heme/Lymph Last edited by Lisa Rojo on 06/20/2024 9:54 AM. Base Eye Exam Visual Acuity (Snellen - Linear) Right Left Dist cc 20/50 20/60 Correction: Glasses Last Retinoscopy in phoropter Tonometry ([facility] , 10:15 AM) Right Left Pressure 15 13 Pupils Pupils Dark Light Shape React APD Right PERRL 1.5 1 Round Minimal None Left PERRL 1.5 1 Round Minimal None Visual Chaudhari (Counting fingers) Left Right Full Full Extraocular Movement Right Left Full Full Neuro/Psych Oriented x3: Yes Mood/Affect: Normal Dilation Both eyes: 1.0% Tropicamide @ 10:18 AM Slit Lamp and Fundus Exam External Exam Right Left External Normal Normal Slit Lamp Exam Right Left Lids/Lashes Normal Normal Conjunctiva/Sclera White and quiet White and quiet Cornea Arcus 360 Arcus 360 Anterior Chamber Deep and quiet Deep and quiet Iris Flat, no NVI Flat, no NVI Lens 2-3+ ACC, 2+ NSC 2-3+ ACC, 2+ NSC Fundus Exam Right Left Vitreous Clear Clear Disc [place] and Distinct, no NVD [place] and Distinct, no NVD C/D Ratio Vertical 0.20 0.30 C/D Ratio Horizontal 0.20 0.30 Macula Mild VMT, no CSME/SRF Mild VMT, no CSME/SRF Vessels Normal Normal Periphery No Holes/Breaks/Tears 360 degrees to the extent seen, no NVE No Holes/Breaks/Tears 360 degrees, to the extent seen, no NVE Poor peripheral views in both eyes secondary to poor dilation (~ 2-3mm) and presence of visually significant cataracts within central visual space. Refraction Wearing Rx Sphere Cylinder [place] Add Right +0.75 Sphere +2.50 Left Balance +2.50 Type: Distance and Near Wearing Rx #2 Sphere Cylinder [place] Add Right +1.75 Sphere Left +4.75 -1.25 180 Manifest Refraction (Subjective) Sphere Cylinder [place] Dist VA Add Near VA Right +1.00 Sphere 20/40 +2 +3.00 20/50 Left +4.50 -1.25 180 20/60 +3.00 20/80 Near VA Both: 20/30 Final Rx Sphere Cylinder Dist VA Add Near VA Right +1.00 Sphere 20/40 +3.00 20/50 Left Balance 20/60 +3.00 Expiration Date: 06/20/2025 Assessment/plan: Diagnoses and all orders for this visit: 1. Diabetes type 2, no ocular involvement ([facility]) There is no diabetic retinopathy or macular edema present today in either eye (to the extent seen).The patient's dilation was minimal and views were limited by cataracts and pupil size. The patient was educated on the exam findings. The patient was educated to continue controlling blood glucose levels through diet, exercise and medication. The patient was educated on potential complications of diabetic retinopathy, including blindness, if left untreated. The patient was educated on the importance of an annual diabetic eye exam to monitor for diabetic retinopathy. A summary of today's dilatedeye exam results will be communicated to the patient's PCP through the shared patient problem list in [facility]. Will monitor in 1 year. 2. Amblyopia, refractive, left Longstanding and stable. Will monitor at her next exam. 3. Combined forms of age-related cataract of both eyes BCVA was 20/40 in the right eye and 20/60 in the left eye today. The patient was educated that she has significant cataracts that are reducing her vision in both eyes. She was educated on the need for an evaluation for cataract surgery to improve her vision. She was educated that cataracts are progressive in nature, and that without treatment, her vision will continue to worsen. She would like topursue cataract surgery. Will refer to ophthalmology. - Referral to Ophthalmology; Future 4. Vitreomacular traction syndrome of both eyes The patient has mild VMT in both eyes. VMT is a condition where the vitreous gel inside the eye is partially attached to the retina causing traction on the macula. This pulling causes distortion of the macula. Most people do not experience symptoms of VMT, but occasionally, distorted or blurred central vision. Given the mild presentation, the patient's vision is not likely affected. Will monitor at her next exam. - OCT, Retina - OU - Both Eyes 5. Presbyopia Glasses prescription deferred until after cataract evaluation. Will monitor at next complete eye exam. Lula Torrez, OD 06/30/2024, 4:11 PM Student Name: Lisa Darrel I attest that I was physically present with the optometry student. I personally saw and evaluated the patient and performed my own history and examination. I have reviewed, verified, and revised the documented findings as necessary and agree with the content and plan as written. Folding Rules Printing Machine Operator Source: _x_ None ___ Bilingual Staff ___ Qualified Staff Quantitative Developer ___ Telephone Folding Rules Printing Machine Operator; ID# ___ Folding Rules Printing Machine Operator brought by patient (family member, friend, LAST SORTER, etc) ___ In person utility forester ___ Ipad Folding Rules Printing Machine Operator; ID#: Language Spoken During Exam: English documented in this encounter Plan of Treatment Upcoming Encounters Date Type Department Care Team (Late st Contact Info) Description 07/21/2024 9:30 AM EDT Medication Management [address] [address] Mary Villegas PharmD [address] [place] [address] Scheduled Referrals Name Type Priority Associated Diagnoses Order Schedule Referral to Ophthalmology Outpatient Referral Routine Combined forms of age-related cataract of both eyes Expected: 06/30/2024 (Approximate), Expires: 06/30/2025 documented as of this encounter Goals Goal Patient Goal Type Associated Problems Recent Progress Patient-Stated? Author Hemoglobin A1c < 7 Result Component 9.3(04/05/2024 2:22 PM EST) No Candi Oglesby, Massimo documented as of this encounter Procedures Procedure Name Priority Date/Time Associated Diagnosis Comments OCT, RETINA - OU - BOTH EYES Routine 06/20/2024 10:00 AM EDT Vitreomacular traction syndrome of both eyes documented in this encounter Results * OCT, Retina - OU - Both Eyes (06/20/2024 10:00 AM EDT) Lula Rodriguez, OD - 06/30/2024 3:34 PM EDT Images [...] Lula Torrez OD OPHTH TOMOGRAPHY Final Result documented in this encounter Visit Diagnoses Diagnosis Diabetes type 2, no ocular involvement (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
--- OUTSIDE RECORDS SUMMARY | 2024-07-05 18:46 | XMS_ITS | Encounter Summary ---
Author Organization [employer] Address [address] [place] [address] Care Team Providers Care Bridge Inspector Name Role Phone Name, Arjun GODFREY Primary Care Provider [phone] Mary Villegas PharmD Unavailable [phone] Encounter Details Date Type Department Care Team ([facility] Contact Info) Description 07/05/2024 Orders Only GENERIC EXTERNAL DATA DEPARTMENT Provider, Generic External Data Social History Tobacco Use Types Packs/Day Years [...] Description 07/21/2024 9:30 AM EDT Medication Management [facility] MEDICINE [address] [place] [address] Mary Villegas PharmD [address] [place] [address] documented as of this encounter Goals Goal Patient Goal Type Associated Problems Recent Progress Patient-Stated? Author Hemoglobin A1c < 7 Result Component 9.3(04/05/2024 2:22 PM EST) No Candi Oglesby PharmD documented as of this encounter Procedures Procedure Name Priority Date/Time Associated Diagnosis Comments CT HEAD WO CONTRAST Routine 07/05/2024 1 :48 PM EDT CBC WITH AUTO DIFFERENTIAL Routine 07/05/2024 10:58 AM EDT BASIC METABOLIC PANEL Routine 07/05/2024 10:58 AM EDT documented in this encounter Results * CT Head w/o Contrast (07/05/2024 1:48 PM EDT) Anatomical Region Laterality Modality Head, Neck Computed Tomogra phy 07/05/2024 1:48 PM EDT Narrative 07/05/2024 2:49 PM EDT ? [facility] ?[address] ?[place] [address] ? CT Scan Report ? Signed ? Patient: Crouch,Vanessa ?MR#: [id number] ?? [id number] ? : 1950 ?Acct:[id number] ? Age/Sex: 74 / F ?ADM Date: 07/05/24 ? Loc: HO.ED ? Attending Dr: ? Ordering Physician: Alton Keating ?? Date of Service: 07/05/24 ?? Procedure(s): CT head/brain wo IV con ?? Accession Number(s): [id number] ? cc: Alton Keating; Name,Arjun GODFREY ? Report Number: ?? [id number]: Total DLP = ??582.00 mGy-cm ?? EXAMINATION: [...] Reyna MD ??07/05/2024 02:46 PM EDT RP ? Dictated By: ?Angelo Reyna MD ? Signed By: ?<Electronically signed by Angelo Reyna MD in OV> ?07/05/24 1446 ? DD/ 1348 ? TD/TT: 07/05/24 1428 ? Carpentry Foreman: ? Procedure Note Yelitza, Brina - 07/05/[address] [place] [address] [address] Scan Report Signed Patient: Roshni Crouch#: [id number] : 9Acct:[id number] Age/Sex: 74 / FADM Date: 07/05/24 Loc: .ED Attending Dr: Ordering Physician: Alton Keating Date of Service: 07/05/24 Procedure(s): CT head/brain wo IV con Accession Number(s): [id number] cc: Alton Keating; Name,Arjun GODFREY Report Number: [id number]: Total DLP = 582.00 mGy-cm EXAMINATION: CT [...] 07/05/2024 02:46 PM EDT Dictated By: Angelo Reyna MD Signed By: <Electronically signed by Angelo Reyna MD in OV> 07/05/24 1446 DD/ 1348 TD/TT: 07/05/24 1428 Carpentry Foreman: [facility] External Provider IMG CT PROCEDURES Final Result * (ABNORMAL) Basic Metabolic Panel (07/05/2024 10:58 AM EDT) Sodium 140 135 - 145 mmol/L [facility] Potassium 3.9 3.3 - 5.1 mmol/L [facility] Chloride 99 96 - 108 mmol/L [facility] Carbon Dioxide 28 22 - 29 mmol/L [facility] Anion Gap 17 12 - 20 [facility] Urea Nitrogen (BUN) 12 9 - 16 mg/dL [facility] Creatinine, Serum 0.71 0.5 - 1.4 mg/dL [facility] Creatinine Clr Calc Pharmacy 41.1 [facility] Comment:Provided height and weight: 144.78 cm,44.452 kg.eGFR (calculated from the MDRD study equation) and eCrCl(calculated from the Cockcroft-Gault equation) are based ondifferent parameters and may not yield comparable results.If eCrCl result is absurd, please check patient'sheight/weight. Estimated Glomerular Filt Rate >60 [facility] Comment:Chronic Kidney Disea se: Estimated GFR < 60 mL/min/1.10u3Xxtres Kidney Disease: Estimated GFR < 15 mL/min/1.73m2 Glucose 153(H) 60 - 115 mg/dL [facility] Calcium 10.7(H) 8.4 - 10.2 mg/dL [facility] 07/05/2024 10:5 8 AM EDT 07/05/2024 11:02 AM EDT us Generic External Data Provider LAB BLOOD ORDERAB LES Final Result [facility] [address] [place] [phone] * (ABNORMAL) CBC auto differential (07/05/2024 10:58 AM EDT) White Blood Count 6.9 4.8 - 10.8 X10*3/uL [facility] Red Blood Count 4.57 4.20 - 5.50 X10*6/uL [facility] Hemoglobin 14.4 12.0 - 16.0 g/dl [facility] Hematocrit 42.4 37.0 - 47.0 % [facility] Mean Corpuscular Volume 92.8 80.0 - 98.0 fL [facility] Mean Corpuscular Hemoglobin 31.5 27.0 - 33.0 pg [facility] Mean Corpuscular HGB Conc 34.0 31.0 - 35.0 g/dl [facility] Red Cell Distribution Width 12.5 11.0 - 16.0 % [facility] Platelet Count 255 160 - 400 X10*3/uL [facility] Mean Platelet Volume 9.6 9.4 - 12.3 fL [facility] Neutrophils Percent Auto 62.3 45 - 73 % [facility] Imm Gran Pct Auto 0.3 0.0 - 0.4 % [facility] Lymphocytes Percent Auto 26.2 20 - 40 % [facility] Monocytes Percent Auto 5.4 2 - 11 % [facility] Eosinophils Percent Auto 5.2(H) 0 - 4 % [facility] Basophils Percent Auto 0.6 0 - 2 % [facility] NRBC Pct Auto 0.0 0.0 - 0.2 /100WBC [facility] Neutrophils Absolute Auto 4.3 2.0 - 8.3 x10*3/uL [facility] Imm Gran Abs Auto 0.02 0.00 - 0.03 X10*3/uL [facility] Lymphocytes Absolute Auto 1.8 1.2 - 4.9 X10*3/uL [facility] Monocytes Absolute Auto 0.4 0.1 - 1.2 X10*3/uL [facility] Eosinophils Absolute Auto 0.4 0.0 - 0.4 X10*3/uL [facility] Basophils Absolute Auto 0.0 0.0 - 0.2 X10*3/uL [facility] NRBC Abs Auto 0.000 0.0 - 0.012 X10*3/uL [facility] 07/05/2024 10:5 8 AM EDT 07/05/2024 11:02 AM EDT us Generic External Data Provider LAB BLOOD ORDERAB LES Final Result Performing Organization Address City/State/[facility] Co de Phone Number [facility] [address] [place] [phone] documented in this encounter Visit Diagnoses Not on filedocumented in this encounter Additional Health Concerns Assessment Noted Time PHQ-9 Depression Total Score: 11 024 11:52 AM EDT documented as of this encounter Care Teams Bridge Inspector Relationship Specialty Start Date End Date Name, MD Arjun [address] [place] [address] PCP - General Family Medicine 01/27/19 Mary Villegas, PharmD [address] [place] [phone] Pharmacist Internal Medicine 04/13/24 documented as of this encounter
== END 2024-07-05 17:16 | disposition left against medical advice (07) ==
PROVIDERS: Emergency Medicine; Emergency Provider Emergency Medicine; PCP Internal Medicine Geriatric Medicine
DX: R51.9 Headache, unspecified (principal); R42 Dizziness and giddiness; R94.31 Abnormal electrocardiogram [ECG] [EKG]; Z79.899 Other long term (current) drug therapy
CPT/HCPCS: 36415; 70450; 80048; 85025; 93005; 99283; 99284

== ENCOUNTER → 2024-07-05 10:40 | Outpatient (BNV) | payer OTHER, SELFPAY | PROVIDERS: Emergency Provider Emergency Medicine; PCP Internal Medicine Geriatric Medicine; Visit Provider Internal Medicine | DX: R94.31 Abnormal electrocardiogram [ECG] [EKG] (principal); I25.2 Old myocardial infarction | CPT/HCPCS: 93010 ==

== ENCOUNTER → 2024-07-05 13:00 | Outpatient (BNV) | payer OTHER, SELFPAY | PROVIDERS: PCP Internal Medicine Geriatric Medicine; Visit Provider Radiology Diagnostic Radiology | DX: R51.9 Headache, unspecified (principal); R42 Dizziness and giddiness | CPT/HCPCS: 70450 ==

== ENCOUNTER 2024-07-21 09:56 | Outpatient (REF) | payer OTHER, SELFPAY ==
--- OUTSIDE RECORDS SUMMARY | 2024-07-21 10:54 | XMS_ITS | Encounter Summary ---
Author Organization [employer] Address [address] [facility] [address] [place] [address] Care Team Providers Care Jailer Name Role Phone NameArjun MD Primary Care Provider [phone] Mary Villegas PharmD Unavailable [phone] Reason for Visit * Reason Comments Med Refill Encounter Details Date Type Department Care Team ([facility] Contact Info) Description 05/07/2022 Refill [facility] [address] [place] [phone] Arjun Willard MD [address] [place] [phone] Social History Tobacco Use Types Packs/Day Years [...] Upcoming Encounters Date Type Department Care Team ([facility] Contact Info) Description 07/25/2024 3:45 PM EDT Office Visit [facility] [address] [place] [address] [phone] Arjun Willard MD [address] [place] [phone] 10/25/2024 9:00 AM EDT Medication Management [facility] [address] [place] [address] [phone] Mary Villegas PharmD [address] [place] [address] documented as of this encounter Visit Diagnoses Not on filedocumented in this encounter Care Teams Jailer Relationship Specialty Start Date End Date Name, MD Arjun [address] [place] [address] PCP - General Family Medicine 01/27/19 Mary Villegas, PharmD [address] [place] [address] Pharmacist Internal Medicine 04/13/24 documented as of this encounter
--- OUTSIDE RECORDS SUMMARY | 2024-07-21 10:54 | XMS_ITS | Encounter Summary ---
Author Organization [employer] Address [address] [facility] [address] [place] [address] Care Team Providers Care Manufacturers Representative Name Role Phone Name, Arjun GODFREY Primary Care Provider [phone] Mary Villegas PharmD Unavailable [phone] Encounter Details Date Type Department Care Team ([facility] Contact Info) Description 07/28/2022 Orders Only [facility] [address] [place] [address] Katey Soto LPN Social History Tobacco Use [...] Upcoming Encounters Date Type Department Care Team ([facility] Contact Info) Description 07/25/2024 3:45 PM EDT Office Visit [facility] MED[facility] [address] [place] [address] Name, MD Arjun [address] [place] [phone] 10/25/2024 9:00 AM EDT Medication Management [facility] [address] [place] [phone] Mary Villegas, PharmD [address] [place] [address] documented as of this encounter Visit Diagnoses Not on filedocumented in this encounter Care Teams Manufacturers Representative Relationship Specialty Start Date End Date Name, MD Arjun [address] [place], [place] [phone] PCP - General Family Medicine 01/27/19 Mary Villegas PharmD [address] [place] [address] Pharmacist Internal Medicine 04/13/24 documented as of this encounter
--- OUTSIDE RECORDS SUMMARY | 2024-07-21 10:54 | XMS_ITS | Encounter Summary ---
Author Organization [employer] Address [address] [facility] [address] 7t [place] [address] Care Team Providers Care Exercise Manager Name Role Phone Name, Arjun GODFREY Primary Care Provider [phone] Mary Villegas PharmD Unavailable [phone] Reason for Visit * Reason Onset Date Comments Nurse Triage 07/08/2024 Encounter Details Date Type Department Care Team ([facility] Contact Info) Description 07/08/2024 Telephone [facility] MEDICINE [address] [place] [address] Name, MD Arjun [address] [place] [address] Nurse Triage Social History Tobacco Use Types Packs/Day Years [...] t he electric, gas, oil or water [employer] threatened to shut off services in your [...] encounter Miscellaneous Notes * Telephone Encounter - Maribel Torrez RN - 07/08/2024 9:43 AM EDT Triage call with [facility] [place] [id number] Suki Pt reports headache which started 2 weeks ago. Pt reports had apt today with PCP but, canceled due to dizziness and requests to reschedule. Pt is also asking for results of CT scan done 07/05/24 and labs done same day. Pt is advised nothing serious noted on labs or CT scan. Pt reports headache covers whole head with a feeling of pressure especially in back of head. Left ear with some congestion, neg for fever. Pt is experiencing dizziness which comes and goes. Pt is advised to drink adequate liquids, rest and tylenol for pain. Pt reports is taking tylenol with little to no effect. Next available apt with PCP is not till 07/25/24 and Pt agrees with this disposition. ASK apt with Dr. Willard 07/25/24 @ 345pm. Insurance is unable to be verified due to computer error. Protocol Used: Headache (Adult) Protocol-Based Disposition: See in Office or Video Visit within 2 Weeks Video visit not offered Positive Triage Question: * Headache is a chronic symptom (recurrent or ongoing AND lasting > 4 weeks) * All higher-acuity triage questions were negative Care Advice Discussed: * Pain Medicines * Reasons To Call Back - Severe headache lasts over 2 hours after pain medicine - Headache lasts over 72 hours - Stiff neck occurs (can't touch chin to chest) - You become worse * Telephone Encounter - Arianne Garcia - 07/08/2024 8:13 AM EDT Symptom: Headache Outcome: Schedule an urgent appointment (within 4 hours) or talk to a nurse or provider soon Reason: Started within the past 3 days The caller accepted this outcome. documented in this encounter Plan of Treatment Upcoming Encounters Date Type Department Care Team (Late st Contact Info) Description 07/25/2024 3:45 PM EDT Office Visit [facility] MEDICINE [address] [place] [phone] NameArjun MD [address] [place] [phone] 10/25/2024 9:00 AM EDT Medication Management [address] [address] Mary Villegas PharmD [address] [place] [phone] documented as of this encounter Goals Goal Patient Goal Type Associated Problems Recent Progress Patient-Stated? Author Hemoglobin A1c < 7 Result Component 7.3(07/21/2024 10:05 AM EDT) No Candi Oglesby PharmD documented as of this encounter Visit Diagnoses Not on filedocumented in this encounter Additional Health Concerns Assessment Noted Time PHQ-9 Depression Total Score: 11 024 11:52 AM EDT documented as of this encounter Care Teams Exercise Manager Relationship Specialty Start Date End Date Arjun Willard MD [address] [place] [address] PCP - General Family Medicine 01/27/19 Mary Villegas PharmD [address] [place] [address] Pharmacist Internal Medicine 04/13/24 documented as of this encounter
--- OUTSIDE RECORDS SUMMARY | 2024-07-21 10:54 | XMS_ITS | Encounter Summary ---
Author Organization [employer] Address 75 [facility] 7t [place] [address] Care Team Providers Care Project Manager Finance Name Role Phone Name, Arjun GODFREY Primary Care Provider [phone] Mary Villegas PharmD Unavailable [phone] Encounter Details Date Type Department Care Team (Late Contact Info) Description 06/02/2022 Orders Only [facility] CHC MED & PEDS [address] [place], [place] [phone] Katey Soto LPN Social History Tobacco Use [...] Upcoming Encounters Date Type Department Care Team ([facility] Contact Info) Description 07/25/2024 3:45 PM EDT Office Visit [facility] MEDICINE [address] [place] [phone] Name, MD Arjun [address] [place] [address] 10/25/2024 9:00 AM EDT Medication Management [facility] MEDICINE [address] [place] [phone] Mary Villegas, PharmD [address] [place] [address] documented as of this encounter Visit Diagnoses Not on filedocumented in this encounter Care Teams Project Manager Finance Relationship Specialty Start Date End Date Name, MD Arjun [address] [place], [place] [phone] PCP - General Family Medicine 01/27/19 Mary Villegas PharmD [address] [place] [address] Pharmacist Internal Medicine 04/13/24 documented as of this encounter
--- OUTSIDE RECORDS SUMMARY | 2024-07-21 10:54 | XMS_ITS | Encounter Summary ---
Author Organization [employer] Address [address] [facility] [address] 7t [place] [address] Care Team Providers Care Intermission Coordinator Name Role Phone Name, Arjun GODFREY Primary Care Provider Mary Villegas PharmD Unavailable [phone] Encounter Details Date Type Department Care Team (Latest Contact Info) Description 07/21/2024 Travel Social History Tobacco Use Types Packs/Day Years [...] Description 07/25/2024 3:45 PM EDT Office Visit [facility] MEDICINE [address] [place] [phone] Arjun Willard MD [address] [place] [address] 10/25/2024 9:00 AM EDT Medication Management [address] [address] Mary Villegas PharmD [address] [place] [address] documented as of this encounter Goals Goal Patient Goal Type Associated Problems Recent Progress Patient-Stated? Author Hemoglobin A1c < 7 Result Component 7.3(07/21/2024 10:05 AM EDT) No Candi Oglesby PharmJace documented as of this encounter Visit Diagnoses Not on filedocumented in this encounter Additional Health Concerns Assessment Noted Time PHQ-9 Depression Total Score: 11 024 11:52 AM EDT documented as of this encounter Care Teams Intermission Coordinator Relationship Specialty Start Date End Date Arjun Willard MD [address] [place] [address] PCP - General Family Medicine 01/27/19 Mary Villegas, Massimo [address] [place] [address] Pharmacist Internal Medicine 04/13/24 documented as of this encounter
--- OUTSIDE RECORDS SUMMARY | 2024-07-21 10:54 | XMS_ITS | Encounter Summary ---
Author Organization [employer] Address [address] [facility] [address] Floor [place] [phone] Care Team Providers Care Tool Dresser Name Role Phone NameArjun MD Primary Care Provider Mary Villegas PharmD Unavailable [phone] Encounter Details Date Type Department Care Team (Late st Contact Info) Description 08/27/[address] [address] Arjun Willard MD [address] [place] [phone] Social History Tobacco Use Types Packs/Day Years [...] Department Care Team (Late Contact Info) Description 07/25/2024 3:45 PM EDT Office Visit [address] [address] Arjun Willard MD [address] [place] [phone] 10/25/2024 9:00 AM EDT Medication Management [address] [phone] Puia, Massimo Hernandez [address] [place] [address] documented as of this encounter Procedures Procedure Name Priority Date/Time Associated Diagnosis Comments COLONOSCOPY Routine 06/04/2017 9:23 AM EDT documented in this encounter Results * Colonoscopy (06/04/2017 9:23 AM EDT) Colonoscopy Normal Normal Narrative Brenna Leger - 06/04/2017 9:23 AM EDT Recommended follow up in 10 years us Historical Provider HEALTH MAINTENANCE Final Result documented in this encounter Visit Diagnoses Not on filedocumented in this encounter Care Teams Tool Dresser Relationship Specialty Start Date End Date Name, MD Arjun [address] [place] [address] PCP - General Family Medicine 01/27/19 Mary Villegas PharmD [address] [place] [address] Pharmacist Internal Medicine 04/13/24 documented as of this encounter
--- OUTSIDE RECORDS SUMMARY | 2024-07-21 10:54 | XMS_ITS | Clinical Summary ---
Author Organization [employer] Address [address] [facility] [address] 7[address] [place] [address] Care Team Providers Care Instantizer Operator Name Role Phone Name, Arjun GODFREY Primary Care Provider [phone] Mary Villegas PharmD Unavailable [phone] Allergies Active Allergy Reactions Criticality Noted Date Comments Diphenhydramine Nausea,Vomiting 01/07/2021 Medications Blood Glucose Monitoring Suppl (ONE TOUCH ULTRA 2) w/Device kitIndications :Type 2 diabetes mellitus with hyperglycemia, without long-term current use of insulin ([facility]) Use to check blood glucose by subcutaneous route two times every day. 1 kit 04/07/19 24 Active [employer] Delica Lancets 33G miscIndication s:Type 2 diabetes mellitus with hyperglycemia, without long-term current use of insulin ([facility]) Use to check blood glucose by subcutaneous route two time every day 100 each 11 04/07/19 24 Active [employer] Ultra Test test stripIndicatio ns:Type 2 diabetes mellitus with other specified complication, unspecified whether long-term insulin use ([facility]) TEST BLOOD SUGAR TWICE DAILY [...] breakfast and with evening meal. 60 tablet 04/13/19 026 Active empagliflozin (Jardiance) 25 MG Take [...] Encounters Date Type Department Care Team Description 07/21/2024 Travel 07/08/2024 Telephone [facility] MEDICINE [address] [place] [phone] Name, MD Arjun Nurse Triage 07/05/2024 9:40 AM EDT Office Visit [facility] WALK-IN CENTER [address] [place] [address] Lokesh Rosado MD Acute intractable headache, unspecified headache type (Primary Dx); Dizziness; New onset tinnitus of left ear; Essential hypertension 07/05/2024 Orders Only GENERIC EXTERNAL DATA DEPARTMENT Provider, Generic External Data 07/05/2024 Telephone [facility] MEDICINE [address] [place] [address] Lokesh Rosado MD ED excpect 06/27/2024 Refill [facility] MEDICINE [address] [place], [place] [phone] Name, MD Arjun 06/20/2024 10:00 AM EDT Office Visit [facility] OPTOMETRY [address] [facility] [place] [phone] Lula Torrez, OD Diabetes type 2, no ocular involvement (CMS/HCC) (Primary Dx); Amblyopia, refractive, left; Combined forms of age-related cataract of both eyes; Vitreomacular traction syndrome of both eyes; Presbyopia 06/20/2024 Travel 06/16/2024 Travel 05/19/2024 Refill [facility] MEDICINE [address] [place], [place] [phone] Name, MD Arjun High cholesterol from Last 3 Months Immunizations Name Administration [...] Sign Reading Time Taken Comments Blood Pressure 110/58 07/21/2024 9:44 AM EDT Pulse 84 07/05/2024 8:36 AM EDT Temperature 36.7 ??C (98 ??F) 04/05/2024 2:20 PM EST Respiratory Rate 16 04/05/2024 2:20 PM EST Oxygen Saturation 100% 07/05/2024 8:36 AM EDT Inhaled Oxygen Concentration - - Weight 44.8 kg (98 lb 12.8 oz) 07/21/2024 9:44 A M EDT Height 144.8 cm (4' 9 ) 04/05/2024 2:20 PM EST Body Mass Index 21.38 04/05/2024 2:20 PM EST Plan of Treatment Upcoming Encounters Date Type Department Care Team (Late st Contact Info) Description 07/25/2024 3:45 PM EDT Office Visit [facility] MEDICINE [address] [address] Name, [place] [address] 10/25/2024 9:00 AM EDT Medication Management [facility] MEDICINE 230 [facility] [place] [phone] Mary Villegas, PharmD [address] [place], [place] [phone] Health Maintenance Due Date Last Done Comments Hepatitis B Vaccines (3 of 3 - 19+ 3-dose series) 12/12/2011 08/11/2011, 06/11/2011 Diabetes: Foot Exam 01/02/2024 01/01/2023, 01/01/2023, 01/01/2023, Additional history exists Lipid Panel 01/06/2024 01/05/2023, 08/15, 12/10/2020 Diabetes: Hemoglobin A1C 10/21/2024 025, 04/05/2024, 01/04/2024, Additional history exists SDOH Screening 12/23/2024 12/24/2023 Alcohol/Substance Use Screening 01/03/2025 01/04/2024 Depression Screening 01/03/2025 01/04/2024, 01/04/20 24 Diabetes: Urine Protein Screening 01/03/2025 01/04/2024, 01/05/2023, 12/11/2020, Additional history exists Tobacco Screening 07/05/2025 07/05/2024 Eye Exam 06/20/2026 06/20/2024, 0409/2024, 06/20/2024, Additional [...] 10:05 AM EDT) No Candi Oglesby PharmD Procedures Procedure Name Priority Date/Time Associated Diagnosis Comments POCT GLYCATED HEMOGLOBIN, TOTAL Routine 07/21/2024 10:05 AM EDT Type 2 diabetes mellitus with hyperglycemia, without long-term current use of insulin ([facility]) CT HEAD WO CONTRAST Routine 07/05/2024 1 :48 PM EDT BASIC METABOLIC PANEL Routine 07/05/2024 10:58 AM EDT CBC WITH AUTO DIFFERENTIAL Routine 07/05/2024 10:58 AM EDT OCT, RETINA - OU - BOTH EYES Routine 06/20/2024 10:00 AM EDT Vitreomacular traction syndrome of both eyes ALBUMIN, RANDOM URINE W/CREATININE Routine 01/04/2024 11:30 [...] Relevant to Health Maintenance Results * (ABNORMAL) POCT HGB A1C (07/21/2024 10:05 AM EDT) Hemoglobin A1C 7.3(A) 4.0 - 6.0 % QC Media Lot # [id number] Blood 07/21/2024 10:0 5 AM EDT us Arjun Name POINT OF CARE TEST ENTER/EDIT OR DERABLES Final Result * CT Head w/o Contrast (07/05/2024 1:48 PM EDT) Anatomical Region Laterality Modality Head, Neck Computed Tomogra phy 07/05/2024 1:48 PM EDT Narrative 07/05/2024 2:49 PM EDT ? [facility] ?[address] ?[place] [address] ? CT Scan Report ? Signed ? Patient: Crouch,Vanessa ?MR#: [id number] ?? [id number] ? : 1950 ?Acct:[id number] ? Age/Sex: 74 / F ?ADM Date: 04/22/25 ? Loc: HO.ED ? Attending Dr: ? Ordering Physician: Alton Keating ?? Date of Service: 07/05/24 ?? Procedure(s): CT head/brain wo IV con ?? Accession Number(s): [id number] ? cc: Alton Keating; Name,Arjun GODFREY ? Report Number: ?? [id number]: Total DLP = ??582.00 mGy-cm ?? EXAMINATION: [...] DD/ 1348 ? TD/TT: 07/05/24 1428 ? Property Management Coordinator: ? Procedure Note Donotuseinterpreter, Image - 07/05/[address] [place] [address] [address] Scan Report Signed Patient: Roshni Crouch#: [id number] : 9Acct:[id number] Age/Sex: 74 / FADM Date: 07/05/24 Loc: HO.ED Attending Dr: Ordering Physician: Alton Keating Date of Service: 07/05/24 Procedure(s): CT head/brain wo IV con Accession Number(s): [id number] cc: Alton Keating; Name,Arjun GODFREY Report Number: [id number]: Total DLP = 582.00 mGy-cm EXAMINATION: CT [...] Angelo Reyna MD 07/05/2024 02:46 PM EDT RP Dictated By: Angelo Reyna MD Signed By: <Electronically signed by Angelo Reyna MD in OV> 07/05/24 1446 DD/ 1348 TD/TT: 07/05/24 1428 Property Management Coordinator: [facility] External Provider IMG CT PROCEDURES Final Result * (ABNORMAL) CBC auto differential (07/05/2024 10:58 AM EDT) White Blood Count 6.9 4.8 - 10.8 X10*3/uL [facility] Red Blood Count 4.57 4.20 - 5.50 X10*6/uL [facility] Hemoglobin 14.4 12.0 - 16.0 g/dl [facility] Hematocrit 42.4 37.0 - 47.0 % [facility] Mean Corpuscular Volume 92.8 80.0 - 98.0 fL [facility] Mean Corpuscular Hemoglobin 31.5 27.0 - 33.0 pg [facility] Mean Corpuscular HGB Conc 34.0 31.0 - 35.0 g/dl [facility] Red Cell Distribution Width 12.5 11.0 - 16.0 % [facility] Platelet Count 255 160 - 400 X10*3/uL [facility] Mean Platelet Volume 9.6 9.4 - 12.3 fL [facility] Neutrophils Percent Auto 62.3 45 - 73 % [facility] Imm Gran Pct Auto 0.3 0.0 - 0.4 % [facility] Lymphocytes Percent Auto 26.2 20 - 40 % [facility] Monocytes Percent Auto 5.4 2 - 11 % [facility] Eosinophils Percent Auto 5.2(H) 0 - 4 % [facility] Basophils Percent Auto 0.6 0 - 2 % [facility] NRBC Pct Auto 0.0 0.0 - 0.2 /100WBC [facility] Neutrophils Absolute Auto 4.3 2.0 - 8.3 x10*3/uL [facility] Imm Gran Abs Auto 0.02 0.00 - 0.03 X10*3/uL [facility] Lymphocytes Absolute Auto 1.8 1.2 - 4.9 X10*3/uL [facility] Monocytes Absolute Auto 0.4 0.1 - 1.2 X10*3/uL [facility] Eosinophils Absolute Auto 0.4 0.0 - 0.4 X10*3/uL [facility] Basophils Absolute Auto 0.0 0.0 - 0.2 X10*3/uL [facility] NRBC Abs Auto 0.000 0.0 - 0.012 X10*3/uL [facility] 07/05/2024 10:5 8 AM EDT 07/05/2024 11:02 AM EDT us Generic External Data Provider LAB BLOOD ORDERAB LES Final Result [facility] [address] [place] [phone] * (ABNORMAL) Basic Metabolic Panel (07/05/2024 10:58 AM EDT) Sodium 140 135 - 145 mmol/L [facility] Potassium 3.9 3.3 - 5.1 mmol/L [facility] Chloride 99 96 - 108 mmol/L [facility] Carbon Dioxide 28 22 - 29 mmol/L [facility] Anion Gap 17 12 - 20 [facility] Urea Nitrogen (BUN) 12 9 - 16 mg/dL [facility] Creatinine, Serum 0.71 0.5 - 1.4 mg/dL [facility] Creatinine Clr Calc Pharmacy 41.1 [facility] Comment:Provided height and weight: 144.78 cm,44.452 kg.eGFR (calculated from the MDRD study equation) and eCrCl(calculated from the Cockcroft-Gault equation) are based ondifferent parameters and may not yield comparable results.If eCrCl result is absurd, please check patient'sheight/weight. Estimated Glomerular Filt Rate >60 [facility] Comment:Chronic Kidney Disea se: Estimated GFR < 60 mL/min/[id number] Kidney Disease: Estimated GFR < 15 mL/min/1.73m2 Glucose 153(H) 60 - 115 mg/dL [facility] Calcium 10.7(H) 8.4 - 10.2 mg/dL [facility] 07/05/2024 10:5 8 AM EDT 07/05/2024 11:02 AM EDT us Generic External Data Provider LAB BLOOD ORDERAB LES Final Result Performing Organization Address City/State/[facility] Co de Phone Number [facility] [address] [place] [phone] * OCT, Retina - OU - [...] necessary. Will monitor at her next exam. us Lula Torrez OD OPHTH TOMOGRAPHY Final Result * Albumin, Random Urine W/Creatinine (01/04/2024 11:30 AM EDT) Creatinine, Urine 55.44 mg/dL [facility] Microalbumin Urine 9.0 mg/L [facility] Microalbum Creatinine Ratio Ur 16.2 <30 ug/mg cr [facility] Comment:Albumin/Creatinine R atio Reference Ranges: Normal: < 30 ug/mg creatinine Microalbuminuria: 30 - 300 ug/mg creatinineClinical Albuminuria: > 300 ug/mg creatinine Urine (Urine, Random) 01/04/2024 11:30 AM EDT 01/04/2024 1:10 PM EDT us Arjun Willard MD LAB URINE ORDERABLES Final Resul t Performing Organization Address [facility] Phone Number [facility] [address] [place] [phone] * Hepatitis C Ab (01/05/2023 7:32 AM EDT) Hepatitis C Antibody Nonreactive Nonreactive [facility] Comment:Antibodies to HCV no t detected; does not exclude early acuteHCV infection. Blood Venous blood specimen / Unknown 01/05/2023 7:32 AM EDT 01/05/2023 7:44 AM EDT us Arjun Willard MD LAB BLOOD ORDERABLES Final Resul t Performing Organization Address [facility] Phone Number [facility] [address] [place] [phone] * Lipid Panel, Standard (01/05/2023 7:32 AM EDT) Triglycerides 68 <150 mg/dL [facility] Comment:Desirable Triglyceri de: less than 150 mg/dLBorderline High Triglyceride 150-199 mg/dLHigh Triglyceride: 200-499 mg/dLVery High Triglyceride: greater than or equal to 5OO mg/dL Cholesterol 131 <200 mg/dL [facility] Comment:Desirable Cholestero l: less than 200 mg/dLBorderline High Cholesterol: 200-239 mg/dLHigh Cholesterol: greater than 239 mg/dL LDL Cholesterol Calculated 61 <100 mg/dL [facility] Comment:Desirable LDL: less than 100 mg/dLNear Optimal/Above Optimal LDL: 110- 129 mg/dLBorderline High LDL: 130-159 mg/dLHigh LDL: 160-189 mg/dLVery High LDL: greater than or equal to 190 mg/dL HDL Cholesterol 57 >40 mg/dL [facility] Comment:Desirable HDL: great er than 40 mg/dL Note: This HDL assay may give artificially low results in patients with liver disease. Blood Venous blood specimen / Unknown 01/05/2023 7:32 AM EDT 01/05/2023 7:44 AM EDT us Arjun Name LAB BLOOD ORDERABLES Final Resul t [facility] [address] [place] [phone] * Hm Colonoscopy (06/04/2017 9:23 AM EDT) Colonoscopy Normal Normal Narrative Brenna Leger - 06/04/2017 9:23 AM EDT Recommended follow up in 10 years us Historical Provider HEALTH MAINTENANCE Final Result from Last 3 Months or Most Recently Relevant to Health Maintenance Insurance [facility] ST[facility]ARD [facility] DUAL COMPLETE Care Teams Instantizer Operator Relationship Specialty Start Date End Date Name, MD Arjun [address] [place] [address] PCP - General Family Medicine 01/27/19 Mary Villegas PharmD [address] [place] [address] Pharmacist Internal Medicine 04/13/24
--- OUTSIDE RECORDS SUMMARY | 2024-07-21 10:54 | XMS_ITS | Encounter Summary ---
Author Organization [employer] Address [address] [facility] 7t [place] [address] Care Team Providers Care Mold Technician Name Role Phone Name, Arjun GODFREY Primary Care Provider [phone] Mary Villegas PharmD Unavailable [phone] Encounter Details Date Type Department Care Team (Late st Contact Info) Description 10/03/2022 Orders Only [facility] [address] [place] [address] Richa Rowley LPN Social History Tobacco Use [...] Description 07/25/2024 3:45 PM EDT Office Visit [address] [address] Name, MD Arjun [address] [place] [address] [phone] 10/25/2024 9:00 AM EDT Medication Management [address] [address] Mary Villegas, PharmD [address] [place] [address] documented as of this encounter Procedures Procedure Name Priority Date/Time Associated Diagnosis Comments BI MAMMOGRAM SCREENING TOMOSYNTHESIS BILATERAL Routine 10/31/2022 9:35 AM EDT documented in this encounter Results * BI Mammogram Screening Tomosynthesis Bilateral (10/31/2022 9:35 AM EDT) Anatomical Region Laterality Modality Breast Bilateral Mammography 10/31/2022 9:35 AM EDT Narrative 11/21/2022 5:51 AM EDT ? [facility] ? [address] ?[place] [address] ? Mammography Report ? Signed ? Patient: Vanessa Crouch ?MR#: [id number] ?? [id number] ? : 1950 ?Acct:[id number] ? Age/Sex: 72 / F ?ADM Date: 10/31/22 ? Loc: HO.MAMMO ? Attending Dr: Arjun Name MD ? Ordering Physician: Name,Arjun MD ?Results: 2Benign Fi ?? ndings ? Date of Service: 10/31/22 ?Follow Up: 1 Year From Orig ?? inal Mammogram ? Procedure(s): MM tomosynthesis screening BI ?? Accession Number(s): [id number] ? cc: Name,Arjun GODFREY ? EXAMINATION: ?? [...] 0547 ? DD/ 0935 ? TD/TT: ? Respiratory Care Specialist: ? Procedure Note Yelitza, Image - 11/21/2022 [facility] [address] [place] [address] Dr. Bed[place], [place] [address] Mammography Report Signed Patient: Roshni Crouch#: [id number] : 9Acct:[id number] Age/Sex: 72 / FADM Date: 10/31/22 Loc: [facility]NET[facility] Attending DrRadha Willard MD Ordering Physician: Arjun Willardults: 2Benign Fi ndings Date of Service: 10/31/22Follow Up: 1 Year From Orig inal Mammogram Procedure(s): MM tomosynthesis screening BI Accession Number(s): [id number] cc: Arjun Willard MD EXAMINATION: MM SCREENING [...] in OV> 11/21/22 0547 DD/ 0935 TD/TT: Respiratory Care Specialist: us Arjun Willard MD IMG BI PROCEDURES Edited Result - Final documented in this encounter Visit Diagnoses Not on filedocumented in this encounter Care Teams Mold Technician Relationship Specialty Start Date End Date NameArjun MD [address] [place] [address] PCP - General Family Medicine 01/27/19 Mary Villegas PharmD [address] [place] [address] Pharmacist Internal Medicine 04/13/24 documented as of this encounter
--- OUTSIDE RECORDS SUMMARY | 2024-07-21 10:54 | XMS_ITS | Encounter Summary ---
Author Organization [employer] Address [address] [facility] 7t [place] [address] Care Team Providers Care City Sanitarian Name Role Phone Name, Arjun GODFREY Primary Care Provider [phone] Mary Villegas PharmD Unavailable [phone] Reason for Visit * Reason Comments Med Refill Encounter Details Date Type Department Care Team (Late st Contact Info) Description 09/06/[address] [facility] [address] [place] [phone] Tona Canales FNP [address] [place] [address] Dept [place] [address] Social History Tobacco Use Types Packs/Day Years [...] 3:45 PM EDT Office Visit [facility] [address] [place] [address] [phone] Name, MD Arjun [address] [place] [phone] 10/25/2024 9:00 AM EDT Medication Management [facility] [address] [place] [address] [phone] Mary Villegas PharmD [address] [place] [address] documented as of this encounter Visit Diagnoses Not on filedocumented in this encounter Care Teams City Sanitarian Relationship Specialty Start Date End Date Name, MD Arjun [address] [place] [address] PCP - General Family Medicine 01/27/19 Mary Villegas, PharmD [address] [place] [address] Pharmacist Internal Medicine 04/13/24 documented as of this encounter
[2024-07-21 11:39] LABS: Alanine Aminotransferase 19 U/L (0-31); Albumin Level 4.4 g/dL (3.5-5.0); Alkaline Phosphatase 75 U/L (39-117); Aspartate Amino Transferase 35 U/L (5-31); Bilirubin Direct 0.2 mg/dL (0.0-0.5); Bilirubin Total 0.5 mg/dL (0.0-1.0); Cholesterol 125 mg/dL (<200); HDL Cholesterol 53 mg/dL (>40); LDL Cholesterol Calculated 52 mg/dL (<100); Total Protein 7.3 g/dL (6.5-8.0); Triglycerides 100 mg/dL (<150)
== END 2024-07-21 09:57 | disposition home or self-care (01) ==
LOC: HO.HHCL 09:56
PROVIDERS: Visit Provider Internal Medicine Geriatric Medicine
DX: E11.65 Type 2 diabetes mellitus with hyperglycemia (principal); E78.00 Pure hypercholesterolemia, unspecified
CPT/HCPCS: 36415; 80061; 80076

== ENCOUNTER 2024-09-14 10:35 | Outpatient (AMB) | payer OTHER, SELFPAY ==
--- NOTE | 2024-09-14 10:27 | A.OFFVIS_ITS ---
Intake Visit Reasons: FOLLOW UP EEG Allergies diphenhydramine (From Benadryl) Adverse Reaction (Verified 07/05/24 10:38) Nausea HPI Comments Details: 74 yo RH woman with dizziness and forgetfulness. She reported being dizzy leading to fainting every other day. She was forgetful but also was getting confused about what to say and sometimes would say things that would not make any sense. She was not drinkging alochol. Her mood was on the depressed side. She was having headaches almost daily. She described fainting as, mild fainting. It was making her confused and lose balance. She was here after EEG. She continues to be foretful and family was concerned about dementia. [facility] Medical History (Updated 09/14/24 @ 11:15 by Eleazar Grayson MD) Hyperlipidemia Seizure disorder Cerebral infarct Afib Arrhythmia Breast cancer Acid reflux HTN (hypertension) Diabetes Surgical History H/O endoscopy History of esophagogastroduodenoscopy (EGD) History of lumpectomy of right breast Hx of lymph node biopsy H/O colonoscopy H/O: Family History Father No problems noted. Daughter Diabetes Social History Household Members: None Household Members Other:: alone Alcohol intake: never Current occupational status: retired Current occupation: this summer Female Reproductive History Menstrual Age of Menarche: 9 Physical Exam Neuro Other: Mental Status: Alert with normal orientation and attention. Normal spontaneous speech, fluency, and comprehension. No obvious issues with mood and memory. Affect is appropriate. Cranial Nerves: CN II: Visual metcalf full to confrontation, visual acuity intact. CN III, IV, : Pupils equal, round, reactive to light and accommodation. Extraocular movements are normal. CN V: Facial sensation is normal. CN VII: Facial movements symmetrical. CN VIII: Hearing intact to bedside conversation is normal. Motor: Bulk and tone normal in all extremities. No significant muscle weakness in arms and legs. No drift. Gait and Station: No obvious gait abnormality. No ataxia or instability. Sensory: Intact to light touch, pinprick, and vibration. Romberg is negative. Extrapyramidal: Full facial expressions and blinking. No rigidity. Movements are appropriate with no tremor or abnormality. Speech: Normal; no dysarthria or tremor. Results Reviewed Results Reviewed: EEG:?Date?August 29, 2024.? Description:?this is 16 channel EEG with an EKG lead.? Patient is reported awake during the tracing.? Background age rhythm is low amplitude fast with no obvious asymmetry or paroxysmal tendency.? Photic stimulation does not produce any significant abnormality.? Hyperventilation is not performed.? Cardiac lead does not reveal any significant abnormality.? No sharp spikes or paroxysmal tendency noted..? Impression:?unremarkable EEG.. Assessment & Plan Assessment & Plan (1) Cerebral infarct: Code(s): I63.9 - Cerebral infarction, unspecified Category: Medical Qualifiers: Cerebral infarction mechanism: unspecified mechanism Qualified Code(s): I63.9 - Cerebral infarction, unspecified (2) Multifactorial dementia: Code(s): F03.90 - Unspecified dementia, unspecified severity, without behavioral disturbance, psychotic disturbance, mood disturbance, and anxiety Category: Medical (3) Alzheimer dementia: Code(s): G30.9 - Alzheimer's disease, unspecified; F02.80 - Dementia in other diseases classified elsewhere, unspecified severity, without behavioral disturbance, psychotic disturbance, mood disturbance, and anxiety Category: Medical Qualifiers: Alzheimer's disease onset: unspecified onset Dementia severity: mild Dementia behavioral or psychological symptom: without behavioral, psychotic, or mood disturbance or anxiety Qualified Code(s): G30.9 - Alzheimer's disease, unspecified; F02.A0 - Dementia in other diseases classified elsewhere, mild, without behavioral disturbance, psychotic disturbance, mood disturbance, and anxiety Plan Her overall symptomatology is suggestive of mild Alzheimer disease with a moderate-size right posterior cerebral artery encephalomalacia probably from cerebral infarction of unknown etiology and timing. Because of this lesion, I have not considered her for infusion type disease modifying drugs as they carry risk of stroke. This was discussed with the daughter and symptomatic treatment would be started. Medications: New donepezil 5 mg PO BEDTIME 30 tabs 1RF 30 days Scribe Plan - Not visible on output: EEG at off in August 2024: WNL Coding Level of Care Code Est Pt Level 4 (86086) Diagnoses Cerebral infarction, unspecified mechanism I63.9 Cerebral infarction mechanism: unspecified mechanism Multifactorial dementia F03.90 Mild Alzheimer's dementia without behavioral disturbance, psychotic disturbance, mood disturbance, or anxiety, unspecified timing of dementia onset G30.9; F02.A0 Alzheimer's disease onset: unspecified onset Dementia severity: mild Dementia behavioral or psychological symptom: without behavioral, psychotic, or mood disturbance or anxiety
--- OUTSIDE RECORDS SUMMARY | 2024-09-14 11:15 | XMS_ITS | Encounter Summary ---
Author Organization [employer] Address [address] [facility] [address] 7t [place] [address] Care Team Providers Care Police Shift Commander Name Role Phone NameArjun MD Primary Care Provider [phone] Mary Villegas PharmD Unavailable [phone] Reason for Visit * Reason Onset Date Comments Nurse Triage 07/08/2024 Encounter Details Date Type Department Care Team ([facility] Contact Info) Description 07/08/2024 Telephone [facility] [address] [place] [address] Name, MD Arjun [address] [place] [address] Nurse Triage Social History Tobacco Use Types [...] t he electric, gas, oil or water [employer] threatened to shut off services in your [...] 07/08/2024 9:43 AM EDT Triage call with [facility] [place] [id number] Suki Pt reports headache which started 2 [...] Care Team (Late st Contact Info) Description 10/25/2024 9:00 AM EDT Medication Management [address] [address] Mary Villegas PharmD [address] [place] [phone] 10/26/2024 2:00 PM EDT Office Visit [address] [address] Arjun Willard MD [address] [place] [address] documented as of this encounter Goals Goal [...] documented as of this encounter Care Teams Police Shift Commander Relationship Specialty Start Date End Date Arjun Willard MD [address] [place] [address] PCP - General Family Medicine 01/27/19 Mary Villegas PharmD [address] [place] [address] Pharmacist Internal Medicine 04/13/24 documented as of this encounter
== END 2024-09-14 11:20 | disposition home or self-care (01) ==
LOC: HO.HSM 10:36
PROVIDERS: PCP Internal Medicine Geriatric Medicine; Visit Provider Psychiatry & Neurology Neurology
DX: I63.9 Cerebral infarction, unspecified (principal); F03.90 Unspecified dementia, unspecified severity, without behavioral disturbance, psychotic disturbance, mood disturbance, and anxiety; F02.A0 Dementia in other diseases classified elsewhere, mild, without behavioral disturbance, psychotic disturbance, mood disturbance, and anxiety
CPT/HCPCS: 99214

== ENCOUNTER → 2024-09-14 10:35 | Outpatient (BNVA) | payer OTHER, SELFPAY | PROVIDERS: PCP Internal Medicine Geriatric Medicine; Visit Provider Psychiatry & Neurology Neurology | DX: R55 Syncope and collapse (principal); R42 Dizziness and giddiness; I63.9 Cerebral infarction, unspecified; G30.9 Alzheimer's disease, unspecified; F02.A0 Dementia in other diseases classified elsewhere, mild, without behavioral disturbance, psychotic disturbance, mood disturbance, and anxiety | CPT/HCPCS: 99212 ==

== ENCOUNTER 2024-10-04 13:38 | Outpatient (REF) | payer OTHER, SELFPAY ==
--- NOTE | ~2024-10-04 | US_ITS ---
EXAMINATIONS: 1. MM DIAGNOSTIC DIGITAL BREAST TOMOSYNTHESIS, BILATERAL 2. US BREAST LIMITED RIGHT CLINICAL INFORMATION: Right breast pain. History of right breast cancer, status post lumpectomy in 2007. COMPARISON: Comparison made to multiple prior, most recent October 31, 2022, and most remote November 10, 2016. TECHNIQUE: Digital breast tomosynthesis is performed in both the craniocaudal and mediolateral oblique views along with computer-aided detection (CAD). Synthesized 2D images are generated from the tomosynthesis. Triangular skin marker was placed at the location of the pain in the upper outer quadrant. FINDINGS: BREAST COMPOSITION: There are scattered areas of fibroglandular density (ACR BI-RADS breast composition Category b). RIGHT BREAST: Post lumpectomy changes. No significant masses, suspicious calcifications or other abnormalities are seen. In particular, no suspicious mammographic findings adjacent to the clinical skin marker. Targeted ultrasound of the right breast was performed at the location of the pain as indicated by the patient. The survey performed throughout the 8:00-11:00 axis did not reveal suspicious sonographic findings. LEFT BREAST: No significant masses, suspicious calcifications or other abnormalities are seen. US/US breast RT limited mamm only IMPRESSION: RIGHT BREAST: Benign, no evidence of malignancy. In particular, no abnormal findings to account for area of focal pain. Clinical follow-up is recommended, otherwise, normal interval follow-up mammogram is recommended in 12 months. LEFT BREAST: Negative, no mammographic evidence of malignancy. Normal interval follow-up is recommended in 12 months. ASSESSMENT: BI-RADS 2 - Benign Findings RECOMMENDATION: 1. Patient should be managed based on the clinical impression. 2. Otherwise, routine annual screening mammography. Results were provided to the patient at time of visit by the technologist. This patient's information was entered into a reminder system with a target due date for their next mammogram. Electronically signed by: Aki Reese MD 10/04/2024 07:12 PM EDT
--- OUTSIDE RECORDS SUMMARY | 2024-10-04 14:48 | XMS_ITS | Encounter Summary ---
Author Organization [employer] Address [address] [facility] 7t [place] [address] Care Team Providers Care Medical Legal Investigator Name Role Phone NameArjun MD Primary Care Provider Mary Villegas PharmD Unavailable [phone] Reason for Visit * Reason Onset Date Comments Nurse Triage 07/08/2024 Encounter Details Date Type Department Care Team ([facility] Contact Info) Description 07/08/2024 Telephone [facility] [address] [place] [address] Name, MD Arjun [address] [place] [address] Nurse Triage Social History Tobacco Use Types [...] t he electric, gas, oil or water [employer] threatened to shut off services in your [...] 07/08/2024 9:43 AM EDT Triage call with [facility] [place] [id number] Suki Pt reports headache which started 2 [...] Care Team (Late st Contact Info) Description 10/21/2024 2:15 PM EDT Office Visit [address] [address] Marcio Lebron, ALEX [address] [place] [address] 10/25/2024 9:00 AM EDT Medication Management [address] [address] Mary Villegas PharmD [address] [place] [address] 10/26/2024 2:00 PM EDT Office Visit [address] [address] Name, MD Arjun [address] [place] [address] documented as of this encounter Goals Goal Patient Goal Type Associated Problems Recent Progress Patient-Stated? Author Hemoglobin A1c < 7 Result Component 7.3(07/21/2024 10:05 AM EDT) Candi Moore, PharmD documented as of this encounter Visit Diagnoses Not on filedocumented in this encounter Additional Health Concerns Assessment Noted Time PHQ-9 Depression Total Score: 11 024 11:52 AM EDT documented as of this encounter Care Teams Medical Legal Investigator Relationship Specialty Start Date End Date Name, MD Arjun [address] [place] [address] PCP - General Family Medicine 01/27/19 Mary Villegas, LacyD [address] [place] [address] Pharmacist Internal Medicine 04/13/24 documented as of this encounter
== END 2024-10-04 13:39 | disposition home or self-care (01) ==
LOC: HO.MAMMO 13:38
PROVIDERS: PCP Internal Medicine Geriatric Medicine; Visit Provider Internal Medicine Geriatric Medicine
DX: N64.4 Mastodynia (principal); Z85.3 Personal history of malignant neoplasm of breast
CPT/HCPCS: 76642; 77062; 77066

== ENCOUNTER → 2024-10-04 14:00 | Outpatient (BNV) | payer OTHER, SELFPAY | PROVIDERS: PCP Internal Medicine Geriatric Medicine; Visit Provider Radiology Body Imaging | DX: N64.4 Mastodynia (principal); Z85.3 Personal history of malignant neoplasm of breast | CPT/HCPCS: 76642; 77066; G0279 ==

== ENCOUNTER 2024-10-26 14:21 | Outpatient (REF) | payer OTHER, SELFPAY ==
--- OUTSIDE RECORDS SUMMARY | 2024-10-26 14:37 | XMS_ITS | Encounter Summary ---
Author Organization [employer] Address [address] [facility] [address] 7t [place] [address] Care Team Providers Care House Piping Inspector Name Role Phone NameArjun MD Primary Care Provider [phone] Mary Villegas PharmD Unavailable [phone] Reason for Visit * Reason Onset Date Comments Nurse Triage 07/08/2024 Encounter Details Date Type Department Care Team ([facility] Contact Info) Description 07/08/2024 Telephone [facility] [address] [place] [address] Name, MD Arjun [address] [place] [address] Nurse Triage Social History Tobacco Use Types [...] t he electric, gas, oil or water [employer] threatened to shut off services in your [...] 07/08/2024 9:43 AM EDT Triage call with [facility] [place] [id number] Suki Pt reports headache which started 2 [...] Care Team (Late st Contact Info) Description 01/26/2025 11:15 AM EST Office Visit [facility] [address] [place] [address] Name, MD Arjun [address] [place] [address] documented as of this encounter Goals Goal Patient Goal Type Associated Problems Recent Progress Patient-Stated? Author Hemoglobin A1c < 7 Result Component 7.4(10/25/2024 10:26 AM EDT) Candi Moore PharmD documented as of this encounter Visit Diagnoses Not on filedocumented in this encounter Additional Health Concerns Assessment Noted Time PHQ-9 Depression Total Score: 11 024 11:52 AM EDT documented as of this encounter Care Teams House Piping Inspector Relationship Specialty Start Date End Date NameArjun MD [address] [place] [address] PCP - General Family Medicine 01/27/19 Mary Villegas PharmD [address] [place] [address] Pharmacist Internal Medicine 04/13/24 10/24/24 documented as of this encounter
[2024-10-26 17:10] LABS: B Type Natriuretic Peptide 37 pg/mL (<100)
== END 2024-10-26 14:22 | disposition home or self-care (01) ==
LOC: HO.HHCL 14:21
PROVIDERS: PCP Internal Medicine Geriatric Medicine; Visit Provider Internal Medicine Geriatric Medicine
DX: R60.0 Localized edema (principal)
CPT/HCPCS: 36415; 83880

== ENCOUNTER 2024-11-21 09:39 | Outpatient (AMB) | payer OTHER, SELFPAY ==
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
--- OUTSIDE RECORDS SUMMARY | 2024-11-21 11:01 | XMS_ITS | Clinical Summary ---
Author Organization [employer] Address [address] [facility] [address] [place] [address] Care Team Providers Care Underwriting Manager Name Role Phone Name, Arjun GODFREY Primary Care Provider [phone] Allergies Active Allergy Reactions Criticality Noted Date Comments Diphenhydramine Nausea,Vomiting 01/07/2021 Medications Blood Glucose Monitoring Suppl (ONE TOUCH ULTRA 2) w/Device kitIndications: Type 2 diabetes mellitus with hyperglycemia, without long-term current use of insulin ([facility]) Use to check blood glucose by subcutaneous route two times every day. 1 kit 024 Active ascorbic acid (Vitamin C) 500 MG tablet Once per day. Active zinc gluconate 50 MG tablet Once per day. Act ines acetaminophen (Tylenol) 500 MG tablet Take by mouth. Take 1-2 tabs PRN pain. Do not exceed 6 tabs in 24 hours. (OTC) Active atorvastatin (Lipitor) 40 MG tabletIndicatio ns:High cholesterol TAKE 1 TABLET BY MOUTH EVERY MORNING 90 tablet 3 025 Active omeprazole (PriLOSEC) [address] capsule TAKE 1 CAPSULE BY MOUTH EVERY MORNING BEFORE A MEAL 90 capsule 1 025 Active Lancets (BeatpackingTouch Delica Plus Gaspjj30B) miscIndications :Type 2 diabetes mellitus with hyperglycemia, without long-term current use of insulin ([facility]) USE TO TEST BLOOD SUGAR TWICE DAILY 100 each 11 025 Active glucose blood (OneTouch Ultra Test) test stripIndication s:Type 2 diabetes mellitus with other specified complication, unspecified whether ferry terminal supervisor insulin use ([facility]) USE TO TEST BLOOD SUGAR TWICE DAILY 100 strip 11 07/22/2 025 Active aspirin 81 MG chewable tablet Chew 1 tablet (81 mg) Once per day. 30 tablet 2025 Active prednisoLONE acetate (Pred-Forte) 1 % ophthalmic suspension instill 1 drop in the left eye four times daily Active donepezil (Aricept) 5 MG tablet Active cetirizine (ZyrTEC) 10 MG tablet TAKE 1 TABLET BY MOUTH EVERY MORNING 30 tablet 2 Active empagliflozin (Jardiance) 25 MGIndications:T ype 2 diabetes mellitus with hyperglycemia, without long-term current use of insulin ([facility]) Take 1 tablet (25 mg) by mouth Once per day. 30 tablet 2025 Active SITagliptin-met FORMIN (Janumet) 50-1000 MG tabletIndicatio ns:Type 2 diabetes mellitus with hyperglycemia, without long-term current use of insulin ([facility]) Take 1 tablet by mouth with breakfast and with evening meal. 60 tablet 025 2025 Active lisinopril 5 MG tabletIndicatio ns:Type 2 diabetes mellitus with hyperglycemia, without long-term current use of insulin ([facility]),Essen tial hypertension Take 1 tablet (5 mg) by mouth in the morning. 90 tablet 3 Active azelastine (Optivar) 0.05 % ophthalmic solution INSTILL 1 DROP IN EACH EYE TWICE DAILY 6 mL 2 Active SITagliptin-met FORMIN (Janumet) 50-1000 MG tablet Take 1 tablet by mouth with breakfast and with evening meal. 60 tablet 025 2024 Discontinued(R eorder (will not trigger notification to Pharmacy)) empagliflozin (Jardiance) 25 MG Take 1 tablet (25 mg) by mouth Once per day. 30 tablet 025 2024 Discontinued(R eorder (will not trigger notification to Pharmacy)) lisinopril 5 MG tablet TAKE 1 TABLET BY MOUTH EVERY MORNING 90 tablet 1 025 2024 Discontinued(R eorder (will not trigger notification to Pharmacy)) azelastine (Optivar) 0.05 % ophthalmic solution Administer 1 drop into both eyes 2 times daily. 6 mL 2 025 2024 Discontinued Active Problems Problem Noted Date Diagnosed Date History of breast cancer in female 07/25/2024 Overview (07/25/2024): 2006, right breast treated with surgery, chemotherapy and radiation Chronic low back pain 12/30/2022 12/30/2022 Overweight 11/17/2017 12/30/2022 Type 2 diabetes mellitus without complication 12/30/2022 Hyperglycemia due to type 2 diabetes mellitus 12/30/2022 Diabetes mellitus 06/11/2011 12/30/2022 Essential hypertension 09/12/2010 Pure hypercholesterolemia 09/12/20102022 Encounters Date Type Department Care Team Description 11/18/2024 Refill [facility] [address] [place] [phone] Arjun Willard MD 10/27/2024 Telephone [facility] [address] [place] [phone] Arjun Willard MD Durable Medical Equipment (Compression stockings) 10/26/2024 2:00 PM EDT Office Visit [address] [phone] Arjun Willard MD Venous insufficiency (Primary Dx); Bilateral leg edema 10/26/2024 Travel 10/25/2024 Travel 10/21/2024 2:15 PM EDT Office Visit [address] [address] Marcio Lebron CNP Cataract of right eye, unspecified cataract type (Primary Dx); Type 2 diabetes mellitus with hyperglycemia, without long-term current use of insulin ([facility]); Essential hypertension 10/21/2024 Travel 10/21/2024 Refill [facility] [address] [place] [phone] Arjun Willard MD 10/20/[address] [phone] Daniel Chaves MA CHARTPREP 09/15/2024 Telephone [facility] [address] [place] [address] Name, MD Arjun Pre Op 09/13/2024 Telephone [facility] [address] [place] [address] Name, MD Arjun Med Refill from Last 3 Months Immunizations Immunization Administration Dates Next Due Hep A, Adult 09/08/2011 Hep B, adult 10/25/2024,08/11/2011,06/11/2011 Influenza High-dose Quadriva lent Preservative Free 01/07/2021 [...] Answer Date Recorded Patient Health Questionnaire-2 Score 2 10/21/2024 Internet Access Answer Date Recorded Internet Access Q1 No 10/21/2024 Internet Access Q2 I cannot afford it 10/21/2024 Comments Unknown Sex and Gender Information Value Date Recorded Sex Assigned at Female 01/13/2022 10:15 AM EDT Legal Sex Female 10:15 AM EDT Gender Identity Choose not to disclose 10:15 AM EDT Sexual Orientation Choose not to disclose 2021 10:15 AM EDT Last Filed Vital Signs Vital Sign Reading Time Taken Comments Blood Pressure 128/62 10/26/2024 2:09 PM EDT Pulse 78 10/26/2024 2:09 PM EDT Temperature 36.6 C (97.8 F) 10/26/2024 2:09 PM EDT Respiratory Rate 12 10/26/2024 2:09 PM EDT Oxygen Saturation 99% 10/26/2024 2:09 PM EDT Inhaled Oxygen Concentration - - Weight 44.7 kg (98 lb 9.6 oz) 10/26/2024 2:09 PM EDT Height 144.8 cm (4' 9 ) 10/26/2024 2:09 PM EDT Body Mass Index 21.34 10/26/2024 2:09 PM EDT Plan of Treatment Upcoming Encounters Date Type Department Care Team (Late st Contact Info) Description 01/26/2025 11:15 AM EST Office Visit [facility] [address] [place] [address] Name, [place] [address] Health Maintenance Due Date Last Done Comments Diabetes: Foot Exam 01/02/2024 01/01/2023, 01/01/2023, 01/01/2023, Additional history exists COVID-19 Vaccine ( season) 2024 11/28/2023, 12/13/2022, 02/17/2022, Additional history exists Influenza Vaccine (#1) 2024 , 12/13/2022, 02/17/2022, Additional history exists Alcohol/Substance Use Screening 01/03/2025 01/04/2024 Diabetes: Urine Protein Screening 01/03/2025 01/04/2024, 01/05/2023, 12/11/2020, Additional history exists Diabetes: Hemoglobin A1C 01/25/2025 025, 07/21/2024, 04/05/2024, Additional history exists Depression Monitoring 04/23/2025 10/21/2024, 024 Lipid Panel 07/21/2025 07/21/2024, 12/15, 09/10/2021, Additional history exists SDOH Screening 10/21/2025 10/21/2024 Tobacco Screening 10/26/2025 10/26/2024 Eye Exam 06/20/2026 06/20/2024, 09/2024, 06/20/2024, Additional history exists DTaP/Tdap/Td Vaccines (3 - Td or Tdap) 05/17/2033 05/18/2023, 06/11/2011 Hepatitis A Vaccines Aged Out 09/08/2011 No long er eligible based on patient's age to complete this topic Colonoscopy Discontinued 06/04/2017 Colorectal Cancer Screening Discontinued Hepatitis C Screening Completed 01/05/2023 Pneumococcal Vaccine: 50+ Years Completed 05/18/2023, 09/19/2003 RSV Patients and Patients Aged 60 years or older Completed 04/20/2024 Zoster Vaccines Completed 06/16/2024, 07/2024, 11/17/2017 Hepatitis B Vaccines Completed 10/25/2024, 08/11/2011, 06/11/2011 CT Colonography Discontinued FIT DNA/Cologuard Discontinued FIT Discontinued FOBT Discontinued HIB Vaccines Aged Out No longer eligi ble based on patient's age to complete this topic HPV Vaccines Aged Out No longer eligi ble based on patient's age to complete this topic IPV Vaccines Aged Out No longer eligi ble based on patient's age to complete this topic Meningococcal B Vaccine Aged Out No l onger eligible based on patient's age to complete [...] 7 Result Component 7.4(10/25/2024 10:26 AM EDT) No Candi Oglesby PharmD Procedures Procedure Name Priority Date/Time Associated Diagnosis Comments B TYPE NATRIURETIC PEPTIDE (BNP) Routine 10/26/2024 2:23 PM EDT Bilateral leg edema POCT GLYCATED HEMOGLOBIN, TOTAL Routine 10/25/2024 10:26 AM EDT Type 2 diabetes mellitus with hyperglycemia, without long-term current use of insulin (CMS/HCC) BI US BREAST LIMITED RIGHT Routine 10/04/2024 2:04 PM EDT BI MAMMOGRAM DIAGNOSTIC TOMOSYNTHESIS BILATERAL Routine 10/04/2024 1:45 PM EDT History of breast cancer in female Breast pain in female LIPID PANEL, STANDARD Routine 07/21/2024 9:57 AM EDT ALBUMIN, RANDOM URINE W/CREATININE Routine 01/04/2024 11:30 AM EDT Type 2 diabetes mellitus with hyperglycemia, without long-term current use of insulin (CMS/HCC) HEPATITIS C ANTIBODY Routine 01/05/2023 7:32 AM EDT Need for hepatitis C screening test HM COLONOSCOPY Routine 06/04/2017 9:23 AM EDT from Last 3 Months or Most Recently Relevant to Health Maintenance Results * B Type Natriuretic Peptide (BNP) (10/26/2024 2:23 PM EDT) Pathologist [facility] B Type Natriuretic Peptide 37 <100 pg/mL [facility] Blood Venous blood specimen / Unknown 10/26/2024 2:23 PM EDT 10/26/2024 4:37 PM EDT us Arjun Willard MD LAB BLOOD ORDERABLES Final Resul t [facility] [address] [place] [phone] * (ABNORMAL) POCT HGB A1C (10/25/2024 10:26 AM EDT) Pathologist [facility] Hemoglobin A1C 7.4(A) 4.0 - 5.7 % QC Media Lot # [id number] Blood 10/25/2024 10:2 6 AM EDT us Arjun Willard MD POINT OF CARE TEST ENTER/EDIT OR DERABLES Final Result * BI US Breast Limited Right (10/04/2024 2:04 PM EDT) Anatomical Region Laterality Modality Breast Right Ultrasound 10/04/2024 2:04 PM EDT Narrative 10/04/2024 7:17 PM EDT [facility] [address] [place] [address] Ultrasound Report Signed Patient: Vanessa Crouch MR#: [id number] : 1950 Acct:[id number] Age/Sex: 74 / F ADM Date: 10/04/24 Loc: HO.MAMMO Attending Dr: Arjun Willard MD Ordering Physician: Arjun Willard MD Date of Service: 10/04/24 Procedure(s): US breast RT limited mamm only Accession Number(s): [id number] cc: NameArjun MD EXAMINATIONS: 1. MM DIAGNOSTIC DIGITAL BREAST TOMOSYNTHESIS, BILATERAL 2. US BREAST LIMITED RIGHT CLINICAL INFORMATION: Right breast pain. History of right breast cancer, status post lumpectomy in 2007. COMPARISON: Comparison made to multiple prior, most recent October 31, 2022, and most remote November 10, 2016. TECHNIQUE: Digital breast tomosynthesis is performed in both the craniocaudal and mediolateral oblique views along with computer-aided detection (CAD). Synthesized 2D images are generated from the tomosynthesis. Triangular skin marker was placed at the location of the pain in the upper outer quadrant. FINDINGS: BREAST COMPOSITION: There are scattered areas of fibroglandular density (ACR BI-RADS breast composition Category b). RIGHT BREAST: Post lumpectomy changes. No significant masses, suspicious calcifications or other abnormalities are seen. In particular, no suspicious mammographic findings adjacent to the clinical skin marker. Targeted ultrasound of the right breast was performed at the location of the pain as indicated by the patient. The survey performed throughout the 8:00-11:00 axis did not reveal suspicious sonographic findings. LEFT BREAST: No significant masses, suspicious calcifications or other abnormalities are seen. US/US breast RT limited mamm only IMPRESSION: RIGHT BREAST: Benign, no evidence of malignancy. In particular, no abnormal findings to account for area of focal pain. Clinical follow-up is recommended, otherwise, normal interval follow-up mammogram is recommended in 12 months. LEFT BREAST: Negative, no mammographic evidence of malignancy. Normal interval follow-up is recommended in 12 months. ASSESSMENT: BI-RADS 2 - Benign Findings RECOMMENDATION: 1. Patient should be managed based on the clinical impression. 2. Otherwise, routine annual screening mammography. Results were provided to the patient at time of visit by the technologist. This patient's information was entered into a reminder system with a target due date for their next mammogram. Electronically signed by: Aki Reese MD 10/04/2024 07:12 PM EDT Dictated By: Aki Reese MD Signed By: <Electronically signed by Aki Reese MD in OV> 10/04/24 191 DD/ 1404 TD/TT: 10/04/24 1452 Information Architect: Procedure Note Donotuseinterpreter, Image - 10/05/2024 [facility] [address] [place], [place] [address] Ultrasound Report Signed Patient: Roshni Crouch#: [id number] : 9Acct:[id number] Age/Sex: 74 / FADM Date: 10/04/24 Loc: HO.MAMMO Attending Dr: Arjun Willard MD Ordering Physician: Arjun Willard MD Date of Service: 10/04/24 Procedure(s): US breast RT limited mamm only Accession Number(s): [id number] cc: Arjun Willard MD EXAMINATIONS: 1. MM DIAGNOSTIC DIGITAL BREAST TOMOSYNTHESIS, BILATERAL 2. US BREAST LIMITED RIGHT CLINICAL INFORMATION: Right breast pain. History of right breast cancer, status post lumpectomy in 2007. COMPARISON: Comparison made to multiple prior, most recent October 31, 2022, and most remote November 10, 2016. TECHNIQUE: Digital breast tomosynthesis is performed in both the craniocaudal and mediolateral oblique views along with computer-aided detection (CAD). Synthesized 2D images are generated from the tomosynthesis. Triangular skin marker was placed at the location of the pain in the upper outer quadrant. FINDINGS: BREAST COMPOSITION: There are scattered areas of fibroglandular density (ACR BI-RADS breast composition Category b). RIGHT BREAST: Post lumpectomy changes. No significant masses, suspicious calcifications or other abnormalities are seen. In particular, no suspicious mammographic findings adjacent to the clinical skin marker. Targeted ultrasound of the right breast was performed at the location of the pain as indicated by the patient. The survey performed throughout the 8:00-11:00 axis did not reveal suspicious sonographic findings. LEFT BREAST: No significant masses, suspicious calcifications or other abnormalities are seen. US/US breast RT limited mamm only IMPRESSION: RIGHT BREAST: Benign, no evidence of malignancy. In particular, no abnormal findings to account for area of focal pain. Clinical follow-up is recommended, otherwise, normal interval follow-up mammogram is recommended in 12 months. LEFT BREAST: Negative, no mammographic evidence of malignancy. Normal interval follow-up is recommended in 12 months. ASSESSMENT: BI-RADS 2 - Benign Findings RECOMMENDATION: 1. Patient should be managed based on the clinical impression. 2. Otherwise, routine annual screening mammography. Results were provided to the patient at time of visit by the technologist. This patient's information was entered into a reminder system with a target due date for their next mammogram. Electronically signed by: Aki Reese MD 10/04/2024 07:12 PM EDT Dictated By: Aki Reese MD Signed By: <Electronically signed by Aki Reese MD in OV> 10/04/24 1912 DD/ 1404 TD/TT: 10/04/24 1455 Information Architect: Arjun Willard MD IMG US PROCEDURES Final Result * BI Mammogram Diagnostic Tomosynthesis Bilateral (10/04/2024 1:45 PM EDT) Anatomical Region Laterality Modality Breast Bilateral Mammography 10/04/2024 1:45 PM EDT Narrative 10/04/2024 7:17 PM EDT [facility] [address] [place] [address] Mammography Report Signed Patient: Vanessa Crouch MR#: [id number] : 1950 Acct:[id number] Age/Sex: 74 / F ADM Date: 10/04/24 [facility]: Arjun Willard MD Ordering Physician: Arjun Willard MD Results: 2Benign ndings Date of Service: 10/04/24 Follow Up: 1 Year From Orig ina Mammogram Procedure(s): MM tomosynthesis diagnostic BI Accession Number(s): [id number] cc: Arjun Willard MD EXAMINATIONS: 1. MM DIAGNOSTIC DIGITAL BREAST TOMOSYNTHESIS, BILATERAL 2. US BREAST LIMITED RIGHT CLINICAL INFORMATION: Right breast pain. History of right breast cancer, status post lumpectomy in 2007. COMPARISON: Comparison made to multiple prior, most recent October 31, 2022, and most remote November 10, 2016. TECHNIQUE: Digital breast tomosynthesis is performed in both the craniocaudal and mediolateral oblique views along with computer-aided detection (CAD). Synthesized 2D images are generated from the tomosynthesis. Triangular skin marker was placed at the location of the pain in the upper outer quadrant. FINDINGS: BREAST COMPOSITION: There are scattered areas of fibroglandular density (ACR BI-RADS breast composition Category b). RIGHT BREAST: Post lumpectomy changes. No significant masses, suspicious calcifications or other abnormalities are seen. In particular, no suspicious mammographic findings adjacent to the clinical skin marker. Targeted ultrasound of the right breast was performed at the location of the pain as indicated by the patient. The survey performed throughout the 8:00-11:00 axis did not reveal suspicious sonographic findings. LEFT BREAST: No significant masses, suspicious calcifications or other abnormalities are seen. MM/MM tomosynthesis diagnostic BI IMPRESSION: RIGHT BREAST: Benign, no evidence of malignancy. In particular, no abnormal findings to account for area of focal pain. Clinical follow-up is recommended, otherwise, normal interval follow-up mammogram is recommended in 12 months. LEFT BREAST: Negative, no mammographic evidence of malignancy. Normal interval follow-up is recommended in 12 months. ASSESSMENT: BI-RADS 2 - Benign Findings RECOMMENDATION: 1. Patient should be managed based on the clinical impression. 2. Otherwise, routine annual screening mammography. Results were provided to the patient at time of visit by the technologist. This patient's information was entered into a reminder system with a target due date for their next mammogram. Electronically signed by: Aki Reese MD 10/04/2024 07:12 PM EDT Dictated By: Aki Reese MD Signed By: <Electronically signed by Aki Reese MD in OV> 10/04/24 1912 DD/ 1345 TD/TT: 10/04/24 1415 Information Architect: Procedure Note Donotuseinterpreter, Image - 10/04/[facility] [address] [place], [place] [address] Mammography Report Signed Patient: Roshni Crouch#: [id number] : 9Acct:[id number] Age/Sex: 74 / FADM Date: 10/04/24 Loc: HO.MAMMO Attending Dr: Arjun Willard MD Ordering Physician: Arjun Willardesults: 2Benign Fi ndings Date of Service: 10/04/24Follow Up: 1 Year From Orig ina Mammogram Procedure(s): MM tomosynthesis diagnostic BI Accession Number(s): [id number] cc: Name,Arjun GODFREY EXAMINATIONS: 1. MM DIAGNOSTIC DIGITAL BREAST TOMOSYNTHESIS, BILATERAL 2. US BREAST LIMITED RIGHT CLINICAL INFORMATION: Right breast pain. History of right breast cancer, status post lumpectomy in 2007. COMPARISON: Comparison made to multiple prior, most recent October 31, 2022, and most remote November 10, 2016. TECHNIQUE: Digital breast tomosynthesis is performed in both the craniocaudal and mediolateral oblique views along with computer-aided detection (CAD). Synthesized 2D images are generated from the tomosynthesis. Triangular skin marker was placed at the location of the pain in the upper outer quadrant. FINDINGS: BREAST COMPOSITION: There are scattered areas of fibroglandular density (ACR BI-RADS breast composition Category b). RIGHT BREAST: Post lumpectomy changes. No significant masses, suspicious calcifications or other abnormalities are seen. In particular, no suspicious mammographic findings adjacent to the clinical skin marker. Targeted ultrasound of the right breast was performed at the location of the pain as indicated by the patient. The survey performed throughout the 8:00-11:00 axis did not reveal suspicious sonographic findings. LEFT BREAST: No significant masses, suspicious calcifications or other abnormalities are seen. MM/MM tomosynthesis diagnostic BI IMPRESSION: RIGHT BREAST: Benign, no evidence of malignancy. In particular, no abnormal findings to account for area of focal pain. Clinical follow-up is recommended, otherwise, normal interval follow-up mammogram is recommended in 12 months. LEFT BREAST: Negative, no mammographic evidence of malignancy. Normal interval follow-up is recommended in 12 months. ASSESSMENT: BI-RADS 2 - Benign Findings RECOMMENDATION: 1. Patient should be managed based on the clinical impression. 2. Otherwise, routine annual screening mammography. Results were provided to the patient at time of visit by the technologist. This patient's information was entered into a reminder system with a target due date for their next mammogram. Electronically signed by: Aki Reese MD 10/04/2024 07:12 PM EDT Dictated By: Aki Reese MD Signed By: <Electronically signed by Aki Reese MD in OV> 10/04/24 1912 DD/ 1345 TD/TT: 10/04/24 1415 Information Architect: Arjun Willard MD IMG BI PROCEDURES Final Result * Lipid Panel, Standard (07/21/2024 9:57 AM EDT) Triglycerides 100 <150 mg/dL [facility] Comment:Desirable Triglyceri de: less than 150 mg/dLBorderline High Triglyceride 150-199 mg/dLHigh Triglyceride: 200-499 mg/dLVery High Triglyceride: greater than or equal to 5OO mg/dL Cholesterol 125 <200 mg/dL [facility] Comment:Desirable Cholestero l: less than 200 mg/dLBorderline High Cholesterol: 200-239 mg/dLHigh Cholesterol: greater than 239 mg/dL LDL Cholesterol Calculated 52 <100 mg/dL [facility] Comment:Desirable LDL: less than 100 mg/dLNear Optimal/Above Optimal LDL: 110- 129 mg/dLBorderline High LDL: 130-159 mg/dLHigh LDL: 160-189 mg/dLVery High LDL: greater than or equal to 190 mg/dL HDL Cholesterol 53 >40 mg/dL [facility] Comment:Desirable HDL: great er than 40 mg/dL Note: This HDL assay may give artificially low results in patients with liver disease. 07/21/2024 9:57 AM EDT 07/21/2024 11:05 AM EDT us Arjun Willard MD LAB BLOOD ORDERABLES Final Resul t [facility] [address] [place] [phone] * Albumin, Random Urine W/Creatinine (01/04/2024 11:30 AM EDT) Creatinine, Urine 55.44 mg/dL [facility] Microalbumin Urine 9.0 mg/L [facility] Microalbum Creatinine Ratio Ur 16.2 <30 ug/mg cr [facility] Comment:Albumin/Creatinine R atio Reference Ranges: Normal: < 30 ug/mg creatinine Microalbuminuria: 30 - 300 ug/mg creatinineClinical Albuminuria: > 300 ug/mg creatinine Urine (Urine, Random) 01/04/2024 11:30 AM EDT 01/04/2024 1:10 PM EDT us Arjun Willard MD LAB URINE ORDERABLES Final Resul t Performing Organization Address [facility] Co de Phone Number [facility] [address] [place] [phone] * Hepatitis C Ab (01/05/2023 7:32 AM EDT) Hepatitis C Antibody Nonreactive Nonreactive [facility] Comment:Antibodies to HCV no t detected; does not exclude early acuteHCV infection. Blood Venous blood specimen / Unknown 01/05/2023 7:32 AM EDT 01/05/2023 7:44 AM EDT us Arjun Willard MD LAB BLOOD ORDERABLES Final Resul t Performing Organization Address [facility] Co de Phone Number [facility] [address] [place] [phone] * Hm Colonoscopy (06/04/2017 9:23 AM EDT) Colonoscopy Normal Normal Narrative Brenna Leger - 06/04/2017 9:23 AM EDT Recommended follow up in 10 years [place] Provider HEALTH MAINTENANCE Final Result from Last 3 Months or Most Recently Relevant to Health Maintenance Insurance [facility] DUAL COMPLETE Care Teams Underwriting Manager Relationship Specialty Start Date End Date Name, MD Arjun [address] [place] [address] PCP - General Family Medicine 01/27/19
--- OUTSIDE RECORDS SUMMARY | 2024-11-21 11:01 | XMS_ITS | Encounter Summary ---
Author Organization [employer] Address [address] [facility] [address] 7t [place] [address] Care Team Providers Care Payroll And Benefits Assistant Name Role Phone Name, Arjun GODFREY Primary Care Provider [phone] Reason for Visit * Reason Comments Med Refill Encounter Details Date Type Department Care Team ([facility] Contact Info) Description 11/18/[address] [facility] MEDICINE [address] [place], [place] [phone] Name, MD Arjun 230 [place] [address] Social History Tobacco Use Types Packs/Day Years [...] Description 01/26/2025 11:15 AM EST Office Visit [facility] MEDICINE [address] [place] [address] Name, MD Arjun [address] [place] [address] documented as of this encounter Goals Goal Patient Goal Type Associated Problems Recent Progress Patient-Stated? Author Hemoglobin A1c < 7 Result Component 7.4(10/25/2024 10:26 AM EDT) No Candi Oglesby, PharmD documented as of this encounter Visit Diagnoses Not on filedocumented in this encounter Additional Health Concerns Assessment Noted Time PHQ-9 Depression Total Score: 11 024 11:52 AM EDT documented as of this encounter Care Teams Payroll And Benefits Assistant Relationship Specialty Start Date End Date NameArjun MD [address] [place] [address] PCP - General Family Medicine 01/27/19 documented as of this encounter
--- OUTSIDE RECORDS SUMMARY | 2024-11-21 11:01 | XMS_ITS | Encounter Summary ---
Author Organization [employer] Address 75 [facility] 7t [place] [address] Care Team Providers Care Systems Software Manager Name Role Phone Name, Arjun GODFREY Primary Care Provider [phone] Mary Villegas PharmD Unavailable Encounter Details Date Type Department Care Team (Late Contact Info) Description 06/02/2022 Orders Only [facility] [address] [place], [place] [phone] Katey Soto LPN Social History Tobacco Use [...] Department Care Team (Late Contact Info) Description 01/26/2025 11:15 AM EST Office Visit [facility] 230 [place] [address] Name, MD Arjun 230 [place] [address] documented as of this encounter Visit Diagnoses Not on filedocumented in this encounter Care Teams Systems Software Manager Relationship Specialty Start Date End Date NameArjun MD [address] [place] [address] PCP - General Family Medicine 01/27/19 Mary Villegas, Massimo [address] [place] [address] Pharmacist Internal Medicine 04/13/24 10/24/24 documented as of this encounter
--- OUTSIDE RECORDS SUMMARY | 2024-11-21 11:01 | XMS_ITS | Encounter Summary ---
Author Organization [employer] Address [address] [facility] [address] 7t [place] [address] Care Team Providers Care Pan Shaker Name Role Phone NameArjun MD Primary Care Provider [phone] Mary Villegas PharmD Unavailable [phone] Reason for Visit * Reason Onset Date Comments Nurse Triage 07/08/2024 Encounter Details Date Type Department Care Team ([facility] Contact Info) Description 07/08/2024 Telephone [facility] MEDICINE 230 [place] [address] Name, MD Arjun 230 [place] [address] Nurse Triage Social History Tobacco Use Types [...] t he electric, gas, oil or water Domains Income threatened to shut off services in your [...] 07/08/2024 9:43 AM EDT Triage call with [facility] [place] [id number] Suki Pt reports headache which started 2 [...] Description 01/26/2025 11:15 AM EST Office Visit [facility] MEDICINE 230 [place] [address] Name, MD Arjun [address] [place] [address] documented as of this encounter Goals Goal [...] documented as of this encounter Care Teams Pan Shaker Relationship Specialty Start Date End Date NameArjun MD [address] [place] [address] PCP - General Family Medicine 01/27/19 Mary Villegas PharmD [address] [place] [address] Pharmacist Internal Medicine 04/13/24 10/24/24 documented as of this encounter
--- OUTSIDE RECORDS SUMMARY | 2024-11-21 11:02 | XMS_ITS | Encounter Summary ---
Author Organization [employer] Address 75 [facility] 7t [place] [address] Care Team Providers Care Lap Polisher Name Role Phone Arjun Willard MD Primary Care Provider Mary Villegas PharmD Unavailable Reason for Visit * Reason Comments Med Refill Encounter Details Date Type Department Care Team ([facility] Contact Info) Description 05/07/2022 Refill [facility] MEDICINE [address] [place] [address] Ajrun Willard MD [address] [place] [address] Social History Tobacco Use Types Packs/Day Years [...] Upcoming Encounters Date Type Department Care Team ([facility] Contact Info) Description 01/26/2025 11:15 AM EST Office Visit [facility] MEDICINE [address] [place] [address] Arjun Willard MD [address] [place] [address] documented as of this encounter Visit Diagnoses Not on filedocumented in this encounter Care Teams Lap Polisher Relationship Specialty Start Date End Date Arjun Willard MD 230 [place] [address] PCP - General Family Medicine 01/27/19 Mary Villegas, Massimo [address] [place] [address] Pharmacist Internal Medicine 04/13/24 10/24/24 documented as of this encounter
--- OUTSIDE RECORDS SUMMARY | 2024-11-21 11:02 | XMS_ITS | Encounter Summary ---
Author Organization [employer] Address 75 [facility] 7t [place] [address] Care Team Providers Care Cable Driller Name Role Phone Name, Arjun GODFREY Primary Care Provider [phone] Mary Villegas PharmD Unavailable [phone] Encounter Details Date Type Department Care Team ([facility] Contact Info) Description 07/28/2022 Orders Only [facility] [address] [place], [place] [phone] Katey Soto LPN Social History Tobacco Use [...] Upcoming Encounters Date Type Department Care Team ([facility] Contact Info) Description 01/26/2025 11:15 AM EST Office Visit [facility] MEDICINE 230 [place] [address] Name, MD Arjun 230 [place] [address] documented as of this encounter Visit Diagnoses Not on filedocumented in this encounter Care Teams Cable Driller Relationship Specialty Start Date End Date NameArjun MD [address] [place] [address] PCP - General Family Medicine 01/27/19 Mary Villegas, Massimo [address] [place] [address] Pharmacist Internal Medicine 04/13/24 10/24/24 documented as of this encounter
--- OUTSIDE RECORDS SUMMARY | 2024-11-21 11:02 | XMS_ITS | Encounter Summary ---
Author Organization [employer] Address 75 [facility] 7t [place] [address] Care Team Providers Care Telescope Maintenance Name Role Phone Name, Arjun GODFREY Primary Care Provider [phone] Mary Villegas PharmD Unavailable [phone] Encounter Details Date Type Department Care Team ([facility] Contact Info) Description 10/03/2022 Orders Only [facility] MEDICINE [address] [place] [address] Richa Rowley LPN Social History Tobacco Use [...] Description 01/26/2025 11:15 AM EST Office Visit [facility] MEDICINE [address] [place] [address] Name, MD Arjun [address] [place] [address] documented as of this encounter Procedures Procedure Name Priority Date/Time Associated Diagnosis Comments BI MAMMOGRAM SCREENING TOMOSYNTHESIS BILATERAL Routine 10/31/2022 9:35 AM EDT documented in this encounter Results * BI Mammogram Screening Tomosynthesis Bilateral (10/31/2022 9:35 AM EDT) Anatomical Region Laterality Modality Breast Bilateral Mammography 10/31/2022 9:35 AM EDT Narrative 11/21/2022 5:51 AM EDT [facility] [address] [place] [address] Mammography Report Signed Patient: Vanessa Crouch MR#: [id number] : [id number] Acct:[id number] Age/Sex: 72 / F ADM Date: 10/31/22 Loc: HO.MAMMO Attending Dr: Arjun Willard MD Ordering Physician: Arjun Willard MD Results: 2Benign Fi ndings Date of Service: 10/31/22 Follow Up: 1 Year From Orig inal Mammogram Procedure(s): MM tomosynthesis screening BI Accession Number(s): [id number] cc: Arjun Willard MD EXAMINATION: MM SCREENING [...] Daniels MD in OV> 11/21/22 0547 DD/ 4 TD/TT: Necktie Stitcher: Procedure Note Donotuseinterpreter, Image - 11/21/2022 [facility] [address] [place], [place] [address] Mammography Report Signed Patient: Roshni Crouch#: [id number] : 9Acct:[id number] Age/Sex: 72 / FADM Date: 10/31/22 Loc: HO.MAMMO Attending Dr: Arjun Willard MD Ordering Physician: Arjun Willard MDResults: 2Benign Fi ndings Date of Service: 10/31/22Follow Up: 1 Year From Orig inal Mammogram Procedure(s): MM tomosynthesis screening BI Accession Number(s): [id number] cc: Arjun Willard MD EXAMINATION: MM SCREENING [...] signed by Jen Daniels MD in OV> 11/21/2247 DD/ 4 TD/TT: Necktie Stitcher: Arjun Name IMG BI PROCEDURES Edited Result - Final documented in this encounter Visit Diagnoses Not on filedocumented in this encounter Care Teams Telescope Maintenance Relationship Specialty Start Date End Date Name, MD Arjun [address] [place] [address] PCP - General Family Medicine 01/27/19 Mary Villegas, LacyD [address] [place] [address] Pharmacist Internal Medicine 04/13/24 10/24/24 documented as of this encounter
--- OUTSIDE RECORDS SUMMARY | 2024-11-21 11:02 | XMS_ITS | Encounter Summary ---
Author Organization [employer] Address 75 [facility] 7t [place] [address] Care Team Providers Care Legislative Correspondent Name Role Phone Name, Arjun GODFREY Primary Care Provider [phone] Mary Villegas PharmD Unavailable [phone] Reason for Visit * Reason Comments Med Refill Encounter Details Date Type Department Care Team ([facility] Contact Info) Description 09/06/2022 Refill [facility] MEDICINE [address] [place] [address] Tona Canales FNP Social History Tobacco Use Types Packs/Day Years [...] Description 01/26/2025 11:15 AM EST Office Visit [facility] MEDICINE [address] [place] [address] Name, MD Arjun [address] [place] [address] documented as of this encounter Visit Diagnoses Not on filedocumented in this encounter Care Teams Legislative Correspondent Relationship Specialty Start Date End Date Name, MD Arjun [address] [place] [address] PCP - General Family Medicine 01/27/19 Mary Villegas, Massimo [address] [place] [address] Pharmacist Internal Medicine 04/13/24 10/24/24 documented as of this encounter
--- OUTSIDE RECORDS SUMMARY | 2024-11-21 11:02 | XMS_ITS | Encounter Summary ---
Author Organization [employer] Address 75 [facility] 7t [place] [address] Care Team Providers Care Dry Yard Worker Name Role Phone Arjun Willard MD Primary Care Provider Mary Villegas PharmD Unavailable Encounter Details Date Type Department Care Team ([facility] st Contact Info) Description 08/27/2022 Abstract [facility] MEDICINE [address] [place] [address] [phone] Arjun Willard MD [address] [place] [address] [phone] Social History Tobacco Use Types Packs/Day Years [...] Description 01/26/2025 11:15 AM EST Office Visit [address] [phone] Arjun Willard MD [address] [place] [address] [phone] documented as of this encounter Procedures Procedure [...] on filedocumented in this encounter Care Teams Dry Yard Worker Relationship Specialty Start Date End Date Name, MD Arjun [address] [place] [address] PCP - General Family Medicine 01/27/19 Mary Villegas PharmD [address] [place] [address] Pharmacist Internal Medicine 04/13/24 10/24/24 documented as of this encounter
== END 2024-11-21 10:06 | disposition home or self-care (01) ==
LOC: HO.HSM 09:40
PROVIDERS: PCP Internal Medicine Geriatric Medicine; Visit Provider Psychiatry & Neurology Neurology
DX: F03.90 Unspecified dementia, unspecified severity, without behavioral disturbance, psychotic disturbance, mood disturbance, and anxiety (principal); I63.9 Cerebral infarction, unspecified
CPT/HCPCS: 99214

== ENCOUNTER → 2024-11-21 09:39 | Outpatient (BNVA) | payer OTHER, SELFPAY | PROVIDERS: PCP Internal Medicine Geriatric Medicine; Visit Provider Psychiatry & Neurology Neurology | DX: F03.90 Unspecified dementia, unspecified severity, without behavioral disturbance, psychotic disturbance, mood disturbance, and anxiety (principal); I63.9 Cerebral infarction, unspecified; I10 Essential (primary) hypertension; E78.5 Hyperlipidemia, unspecified | CPT/HCPCS: 99212 ==

== ENCOUNTER 2025-01-26 11:59 | Outpatient (REF) | payer OTHER, SELFPAY ==
--- OUTSIDE RECORDS SUMMARY | 2025-01-26 11:15 | XMS_ITS | Encounter Summary ---
Author Organization [employer] Address [address] [facility] [address] 7t [place] [address] Care Team Providers Care Maintenance Technician Name Role Phone Name, Arjun GODFREY Primary Care Provider [phone] Reason for Visit * Reason Comments Diabetes Encounter Details Date Type Department Care Team ([facility] Contact Info) Description 01/26/2025 11:15 AM EST Office Visit [facility] MEDICINE 230 [place] [address] Name, MD Arjun 230 [place] [address] Type 2 diabetes mellitus with hyperglycemia, without long-term current use of insulin (HCC) (Primary Dx); Dysuria; Acute vulvitis; Encounter for immunization Social History Tobacco Use Types Packs/Day Years [...] Sign Reading Time Taken Comments Blood Pressure 126/58 01/26/2025 11:29 AM EST Pulse 72 01/26/2025 11:29 AM EST Temperature 36.6 C (97.9 F) 01/26/2025 11:29 AM EST Respiratory Rate 12 01/26/2025 11:29 AM EST Oxygen Saturation 99% 01/26/2025 11:29 AM EST Inhaled Oxygen Concentration - - Weight 43.4 kg (95 lb 9.6 oz) 01/26/2025 11:29 A M EST Height 144.8 cm (4' 9 ) 01/26/2025 11:29 AM EST Body Mass Index 20.69 01/26/2025 11:29 AM EST documented in this encounter Progress Notes * Arjun Willard MD - 01/26/2025 11:15 AM EST Subjective Patient ID: Vanessa Crouch is a 74 y.o. female who presents for Diabetes. Patient comes for a follow-up visit. She is accompanied by a friend. Her blood sugar has been well-controlled at home. She brings a record of blood sugar for the past 3 months. Her highest blood sugar was 164. She did not have episodes of hypoglycemia. Unfortunately the patient is having side effects to Jardiance. She describes dysuria, vulvar irritation. She does not have any fevers or chills. No CV angle discomfort. The patient is also losing weight and I suspect the Jardiance is contributing to her weight loss aswell. She tells me her appetite is fair. She usually eats 3 times a day. Review of Systems Constitutional: Negative for chills and fever. HENT: Negative for sore throat. Respiratory: Negative for cough, shortness of breath and wheezing. Cardiovascular: Negative for chest pain, palpitations and leg swelling. Gastrointestinal: Negative for abdominal pain. Objective Vitals: 01/26/25 1129 BP: 126/58 BP Location: Left arm Patient Position: Sitting BP Cuff Size: Small adult Pulse: 72 Resp: 12 Temp: 97.9 ??F (36.6 ??C) TempSrc: Temporal SpO2: 99% Weight: 95 lb 9.6 oz (43.4 kg) Height: 4' 9 (1.448 m) Physical Exam Constitutional: Appearance: Normal appearance. Cardiovascular: Rate and Rhythm: Normal rate and regular rhythm. Heart sounds: No murmur heard. No gallop. Pulmonary: Effort: Pulmonary effort is normal. No respiratory distress. Breath sounds: Normal breath sounds. No wheezing. Musculoskeletal: Right lower leg: No edema. Left lower leg: No edema. Neurological: Mental Status: She is alert. Lab Results Component Value Date HGBA1C 7.3 (A) 01/26/2025 HGBA1C 7.4 (A) 10/25/2024 HGBA1C 7.3 (A) 07/21/2024 HGBA1C 9.3 (A) 04/05/2024 HGBA1C 8.5 (A) 01/04/2024 HGBA1C 8.8 (A) 05/18/2023 HGBA1C 8.0 (A) 01/01/2023 HGBA1C 7.6 (H) 09/10/2021 HGBA1C 10.0 (H) 11/28/2019 Assessment/Plan Diagnoses and all orders for this visit: Type 2 diabetes mellitus with hyperglycemia, without long-term current use of insulin ([facility]) Comments: I will keep her on the same dose of Janumet, lisinopril and statin. I will lower her Jardiance to 10 mg daily because of her weight loss and urinary complaints. I recommended evaluation with urinalysis. I sent vaginal clotrimazole to treat empirically for vaginal candidiasis. She is encouraged to call us if urinary symptoms persist. Follow-up next week with bloating nurses for blood sugar check, reevaluation of urinary symptoms and weight check Orders: - POCT Glucose - POCT Hgb A1c Dysuria - Urinalysis, Complete, with Reflex to Culture; Future Acute vulvitis - clotrimazole (Lotrimin) 1 % vaginal cream; Insert one applicator per vagina at bedtime for 7 nights Encounter for immunization - FLU VACCINE TRIVALENT HIGH DOSE [id number] (Fluzone) 65 yrs + Other orders - empagliflozin (Jardiance) 10 MG; Take 1 tablet (10 mg) by mouth Once per day. Future Appointments Date Time Provider Department Center 02/07/2025 11:30 AM [facility] BLUE TEAM NURSE MEDICINE [facility] documented in this encounter Plan of Treatment Upcoming Encounters Date Type Department Care Team (Late st Contact Info) Description 02/07/2025 11:30 AM EST Clinical Support [facility] MEDICINE [address] [place] [address] documented as of this encounter Goals Goal Patient Goal Type Associated Problems Recent Progress Patient-Stated? Author Hemoglobin A1c < 7 Result Component 7.3( 11:32 AM EST) Candi Moore, LacyD Help patients manage their type 2 diabetes Care Plan Help patients manage their type 2 diabetes Ruben Ceja MA Weekly blood pressure task Care Plan Weekly blood pressure task Ruben Ceja MA Help patients manage their type 2 diabetes Care Plan Help patients manage their type 2 diabetes Ruben Ceja MA Patient has chronic kidney disease Care Plan Patient has chronic kidney disease Ruben Ceja MA Weekly blood pressure task Care Plan Weekly blood pressure task No Chester Franchezka, MA Patient has chronic kidney disease Care Plan Patient has chronic kidney disease No Ruben Briggs MA documented as of this encounter Procedures Procedure Name Priority Date/Time Associated Diagnosis Comments URINALYSIS, COMPLETE, WITH REFLEX TO CULTURE Routine 01/26/2025 12:03 PM EST Dysuria POCT GLYCATED HEMOGLOBIN, TOTAL Routine 01/26/2025 11:32 AM EST Type 2 diabetes mellitus with hyperglycemia, without long-term current use of insulin (HCC) POCT GLUCOSE Routine 01/26/2025 11:31 AM EST Type 2 diabetes mellitus with hyperglycemia, without long-term current use of insulin ([facility]) documented in this encounter Results * (ABNORMAL) Urinalysis, Complete, with Reflex to Culture (01/26/2025 12:03 PM EST) Color Urine Yellow [facility] Appearance Urine Clear [facility] PH 5.0 5.0 - 9.0 [facility] Glucose Urine UA >=1000(A) Negative mg/dL [facility] Urine Blood Negative Negative [facility] Specific [place] - Urine >=1.030(H) 1.005 - 1.025 [facility] Urine Protein Negative Neg-Trace mg/dL [facility] Urine Ketones Negative Negative mg/dL [facility] Nitrite Urine Negative Negative [facility] Leukocyte Esterase Urine Negative Negative [facility] RBC Urine 0-2 0 - 2 /HPF [facility] Urine WBC 0-5 0 - 5 /HPF [facility] Urine Squamous Epithelial Cell 0-2 0 - 2 /HPF [facility] Urine Bacteria None Seen None Seen [facility] Hyaline Casts, Urine 0-2 0 - 2 /LPF [facility] Urine 01/26/2025 12:0 3 PM EST 01/26/2025 1:15 PM EST Narrative [facility] - 01/26/2025 1:38 PM EST Urine, Clean Catch Result Marta Willard MD LAB URINE ORDERABLES Final Resul t [facility] [address] [place] [phone] * (ABNORMAL) POCT Hgb A1c (01/26/2025 11:32 AM EST) Hemoglobin A1C 7.3(A) 4.0 - 5.7 % QC Media Lot # [id number] Lot# Expiration Date 51,227 Blood 01/26/2025 11:3 2 AM EST Result Marta Willard MD POINT OF CARE TEST ENTER/EDIT OR DERABLES Final Result * POCT Glucose (01/26/2025 11:31 AM EST) Glucose Blood, POC 128 60 - 200 mg/dL QC Media Lot # [id number] Lot# Expiration Date 22,726 Blood Capillary blood specimen / Unknown 01/26/2025 11:31 AM EST Result Marta Willard MD POINT OF CARE TEST ENTER/EDIT OR DERABLES Final Result documented in this encounter Visit Diagnoses Diagnosis Type 2 diabetes mellitus with hyperglycemia, without long-term current use of insulin (HCC)- Primary Dysuria Acute vulvitis Unspecified vaginitis and vulvovaginitis Encounter for immunization documented in this encounter Additional Health Concerns Active Problems Noted Date Diagnosed Date Help patients manage their type 2 diabetes 01/26 Weekly blood pressure task 01/26/2025 Help patients manage their type 2 diabetes 01/26 Patient has chronic kidney disease 01/26/2025 Weekly blood pressure task 01/26/2025 Patient has chronic kidney disease 01/26/2025 Assessment Noted Time PHQ-9 Depression Total Score: 11 024 11:52 AM EDT documented as of this encounter Care Teams Maintenance Technician Relationship Specialty Start Date End Date Name, MD Arjun [address] [place] [address] PCP - General Family Medicine 01/27/19 documented as of this encounter
[2025-01-26 13:33] LABS: Appearance Urine Clear; Glucose Urine UA >=1000 mg/dL (Negative); PH 5.0 (5.0-9.0); Specific Gravity - Urine >= 1.030 (1.005-1.025); UMIC TRIGGER UACC YES
--- OUTSIDE RECORDS SUMMARY | 2025-01-26 15:11 | XMS_ITS | Clinical Summary ---
Author Organization [employer] Address [address] [facility] 7t [place] [address] Care Team Providers Care Sales Supervisor Name Role Phone Name, Arjun GODFREY Primary Care Provider [phone] Allergies Active Allergy Reactions Criticality Noted Date Comments Diphenhydramine Nausea,Vomiting 01/07/2021 Medications Blood Glucose Monitoring Suppl (ONE TOUCH ULTRA 2) w/Device kitIndications: Type 2 diabetes mellitus with hyperglycemia, without long-term current use of insulin (HCC) Use to check blood glucose by subcutaneous [...] EVERY MORNING 90 tablet 3 025 Active Lancets (OneTouch Delica Plus [id number]) miscIndications :Type 2 diabetes mellitus with hyperglycemia, without long-term current use of insulin (HCC) USE TO TEST BLOOD SUGAR TWICE DAILY 100 each 11 025 Active glucose blood (OneTouch Ultra Test) test stripIndication s:Type 2 diabetes mellitus with other specified complication, unspecified whether manager intermediate insulin use (HCC) USE TO TEST BLOOD SUGAR TWICE DAILY 100 strip 11 025 Active aspirin 81 MG chewable tablet Chew 1 tablet (81 mg) Once per day. 30 tablet 025 2025 Active prednisoLONE acetate (Pred-Forte) 1 % ophthalmic suspension instill 1 drop in the left eye four times daily Active donepezil (Aricept) 5 MG tablet Active SITagliptin-met FORMIN (Janumet) 50-1000 MG tabletIndicatio ns:Type 2 diabetes mellitus with hyperglycemia, without long-term current use of insulin ([facility]) Take 1 tablet by mouth with breakfast and with evening meal. 60 tablet 11 025 2025 Active lisinopril 5 MG tabletIndicatio ns:Type 2 diabetes mellitus with hyperglycemia, without long-term current use of insulin (HCC),Essential hypertension Take 1 tablet (5 mg) by mouth in the morning. 90 tablet 3 Active azelastine (Optivar) 0.05 % ophthalmic solution INSTILL 1 DROP IN EACH EYE TWICE DAILY 6 mL 2 Active Blood Glucose Monitoring Suppl (Accu-Chek Guide) w/Device kit Use to check blood glucose by subcutaneous route two times every day. 1 kit Active glucose blood (Accu-Chek Guide Test) test strip Use to test blood sugar twice daily. 100 each Active Accu-Chek Softclix Lancets lancets Use to test blood sugar twice daily. 100 each Active omeprazole (PriLOSEC) [address] capsule TAKE 1 CAPSULE BY MOUTH EVERY MORNING BEFORE A MEAL 90 capsule 1 Active cetirizine (ZyrTEC) 10 MG tablet TAKE 1 TABLET BY MOUTH EVERY MORNING 30 tablet 2 Active empagliflozin (Jardiance) 10 MG Take 1 tablet (10 mg) by mouth Once per day. 30 tablet 11 025 2025 Active clotrimazole (Lotrimin) 1 % vaginal creamIndication s:Vulvovaginal Candidiasis Insert one applicator per vagina at bedtime for 7 nights 45 g Active cetirizine (ZyrTEC) 10 MG tablet TAKE 1 TABLET BY MOUTH EVERY MORNING 30 tablet 2 2024 Discontinued empagliflozin (Jardiance) 25 MGIndications:T ype 2 diabetes mellitus with hyperglycemia, without long-term current use of insulin (HCC) Take 1 tablet (25 mg) by mouth Once per day. 30 tablet 11 025 2024 Discontinued(S aleja effects) Active Problems Problem Noted Date Diagnosed Date History of breast cancer in female 07/25/2024 Overview (07/25/2024): 2007, right breast treated with surgery, chemotherapy and radiation Chronic low back pain 12/30/2022 12/30/2022 Overweight 11/17/2017 12/30/2022 Type 2 diabetes mellitus without complication 12/30/2022 Hyperglycemia due to type 2 diabetes mellitus 12/30/2022 Diabetes mellitus 06/11/2011 12/30/2022 Essential hypertension 09/12/2010 Pure hypercholesterolemia 09/12/20102022 Encounters Date Type Department Care Team Description 01/26/2025 11:15 AM EST Office Visit [facility] [address] [place] [phone] NameArjun MD Type 2 diabetes mellitus with hyperglycemia, without long-term current use of insulin (HCC) (Primary Dx); Dysuria; Acute vulvitis; Encounter for immunization 01/26/2025 Travel 01/16/2025 Refill [facility] [address] [place] [address] Arjun Willard MD 12/20/2024 Refill [facility] [address] [place] [address] Arjun Willard MD 12/07/2024 Telephone [facility] [address] [place] [address] 28[address] Arjun Willard MD Durable Medical Equipment 11/29/2024 Refill [facility] [address] [place] [address] Arjun Willard MD 11/18/2024 Refill [facility] [address] [place] [address] Arjun Willard MD 10/27/2024 Telephone [facility] [address] [place] [address] Arjun Willard MD Durable Medical Equipment (Compression stockings) 10/26/2024 2:00 PM EDT Office Visit [facility] [address] [place] [address] Name, MD Arjun Venous insufficiency (Primary Dx); Bilateral leg edema 10/26/2024 Travel from Last 3 Months Immunizations Immunization Administration Dates Next Due Hep A, Adult 09/08/2011 Hep B, adult 10/25/2024,08/11/2011,06/11/2011 Influenza High-dose Quadriva lent Preservative Free 01/07/2021 Influenza Quadrivalent Adjuvanted 12/13/2022,07/2021 Influenza injectable quadriv alent IIV4 with preservative 01/12/2015 Influenza injectable quadriv alent preservative free 12/09/2018 Influenza, High Dose Seasona l, Preservative Free 01/26/2025,11/28/2023 Influenza, IIV3, injectable 01/16/2014, 1,03/31/2008 Influenza, Split [...] Mass Index 20.69 01/26/2025 11:29 AM EST Plan of Treatment Upcoming Encounters Date Type Department Care Team (Late st Contact Info) Description 02/07/2025 11:30 AM EST Clinical Support [facility] [address] [place], [place] [phone] Health Maintenance Due Date Last Done Comments Alcohol/Substance Use Screening 1962 Diabetes: Foot Exam 01/02/2024 01/01/2023, 01/01/2023, 01/01/2023, Additional history exists COVID-19 Vaccine ( season) 2024 11/28/2023, 12/13/2022, 02/17/2022, Additional history exists Diabetes: Urine Protein Screening 01/03/2025 01/04/2024, 01/05/2023, 12/11/2020, Additional history exists Depression Monitoring 04/23/2025 10/21/2024, 024 Diabetes: Hemoglobin A1C 04/28/2025 025, 10/25/2024, 07/21/2024, Additional history exists Lipid Panel 07/21/2025 07/21/2024, 12/15, 09/10/2021, Additional history exists SDOH Screening 10/21/2025 10/21/2024 Tobacco Screening 01/26/2026 01/26/2025 Eye Exam 06/20/2026 06/20/2024, 040 09/2024, 06/20/2024, Additional history exists DTaP/Tdap/Td Vaccines [...] Hepatitis B Vaccines Completed 10/25/2024, 08/11/2011, 06/11/2011 Influenza Vaccine Completed 01/26/2025, , 12/13/2022, Additional history exists CT Colonography Discontinued FIT DNA/Cologuard Discontinued FIT [...] Weekly blood pressure task Ruben Ceja MA Patient has chronic kidney disease Care Plan Patient has chronic kidney disease Ruben Ceja MA Procedures Procedure Name Priority Date/Time Associated Diagnosis Comments URINALYSIS, COMPLETE, WITH REFLEX TO CULTURE Routine 01/26/2025 12:03 PM EST Dysuria POCT GLYCATED HEMOGLOBIN, TOTAL Routine 01/26/2025 11:32 AM EST Type 2 diabetes mellitus with hyperglycemia, without long-term current use of insulin (HCC) POCT GLUCOSE Routine 01/26/2025 11:31 AM EST Type 2 diabetes mellitus with hyperglycemia, without long-term current use of insulin (HCC) B TYPE NATRIURETIC PEPTIDE (BNP) Routine 10/26/2024 2:23 PM EDT Bilateral leg edema LIPID PANEL, STANDARD Routine 07/21/2024 9:57 AM [...] Relevant to Health Maintenance Results * (ABNORMAL) Urinalysis, Complete, with Reflex to Culture (01/26/2025 12:03 PM EST) Color Urine Yellow [facility] Appearance Urine Clear [facility] PH 5.0 5.0 - 9.0 [facility] Glucose Urine UA >=1000(A) Negative mg/dL [facility] Urine Blood Negative Negative [facility] Specific Rew - Urine >=1.030(H) 1.005 - 1.025 [facility] Urine Protein Negative Neg-Trace mg/dL [facility] Urine Ketones Negative Negative mg/dL [facility] Nitrite Urine Negative Negative [facility] Leukocyte Esterase Urine Negative Negative [facility] RBC Urine 0-2 0 - 2 /HPF [facility] Urine WBC 0-5 0 - 5 /HPF [facility] Urine Squamous Epithelial Cell 0-2 0 - 2 /HPF [facility] Urine Bacteria None Seen None Seen [facility] Hyaline Casts, Urine 0-2 0 - 2 /LPF [facility] Urine 01/26/2025 12:0 3 PM EST 01/26/2025 1:15 PM EST Narrative [facility] - 01/26/2025 1:38 PM EST Urine, Clean Catch us Arjun Willard MD LAB URINE ORDERABLES Final Resul t [facility] [address] [place] [phone] * (ABNORMAL) POCT Hgb A1c (01/26/2025 11:32 AM EST) [facility] Hemoglobin A1C 7.3(A) 4.0 - 5.7 % QC Media Lot # [id number] Lot# Expiration Date 51 Blood 01/26/2025 11:3 2 AM EST us Arjun Willard MD POINT OF CARE TEST ENTER/EDIT OR DERABLES Final Result * POCT Glucose (01/26/2025 11:31 AM EST) [facility] Glucose Blood, POC 128 60 - 200 mg/dL QC Media Lot # [id number] Lot# Expiration Date 22,726 Blood Capillary blood specimen / Unknown 01/26/2025 11:31 AM EST us Arjun Willard MD POINT OF CARE TEST ENTER/EDIT OR DERABLES Final Result * B Type Natriuretic Peptide (BNP) (10/26/2024 2:23 PM EDT) [facility] B Type Natriuretic Peptide 37 <100 pg/mL [facility] Blood Venous blood specimen / Unknown 10/26/2024 2:23 PM EDT 10/26/2024 4:37 PM EDT us Arjun Willard MD LAB BLOOD ORDERABLES Final Resul t [facility] [address] [place] [address] [phone] * Lipid Panel, Standard (07/21/2024 9:57 AM EDT) [facility] Triglycerides 100 <150 mg/dL [facility] Comment:Desirable Triglyceri de: less than 150 mg/dLBorderline High Triglyceride 150-199 mg/dLHigh Triglyceride: 200-499 mg/dLVery High Triglyceride: greater than or equal to 5OO mg/dL Cholesterol 125 <200 mg/dL [facility] Comment:Desirable Cholestero l: less than 200 mg/dLBorderline High Cholesterol: 200-239 mg/dLHigh Cholesterol: greater than 239 mg/dL LDL Cholesterol Calculated 52 <100 mg/dL [facility] Comment:Desirable LDL: less than 100 mg/dLNear Optimal/Above Optimal LDL: 110- 129 mg/dLBorderline High LDL: 130-159 mg/dLHigh LDL: 160-189 mg/dLVery High LDL: greater than or equal to 190 mg/dL HDL Cholesterol 53 >40 mg/dL [facility] Comment:Desirable HDL: great er than 40 mg/dL Note: This HDL assay may give artificially low results in patients with liver disease. 07/21/2024 9:57 AM EDT 07/21/2024 11:05 AM EDT us Arjun Willard MD LAB BLOOD ORDERABLES Final Resul t Performing Organization Address City/[facility] de Phone Number [facility] [address] [place] [phone] * Albumin, Random Urine W/Creatinine (01/04/2024 11:30 AM EDT) Creatinine, Urine 55.44 mg/dL [facility] Microalbumin Urine 9.0 mg/L [facility] Microalbum Creatinine Ratio Ur 16.2 <30 ug/mg cr [facility] Comment:Albumin/Creatinine R atio Reference Ranges: Normal: < 30 ug/mg creatinine Microalbuminuria: 30 - 300 ug/mg creatinineClinical Albuminuria: > 300 ug/mg creatinine Urine (Urine, Random) 01/04/2024 11:30 AM EDT 01/04/2024 1:10 PM EDT us Arjun Willard MD LAB URINE ORDERABLES Final Resul t Performing Organization Address [facility] Co de Phone Number [facility] [address] [place] [phone] * Hepatitis C Ab (01/05/2023 7:32 AM EDT) Hepatitis C Antibody Nonreactive Nonreactive [facility] Comment:Antibodies to HCV no t detected; does not exclude early acuteHCV infection. Blood Venous blood specimen / Unknown 01/05/2023 7:32 AM EDT 01/05/2023 7:44 AM EDT us Arjun Name LAB BLOOD ORDERABLES Final Resul t [facility] [address] [place] [phone] [phone] * Hm Colonoscopy (06/04/2017 9:23 AM EDT) Colonoscopy Normal Normal Narrative [facility] - 06/04/2017 9:23 AM EDT Recommended follow up in 10 years Historical Provider HEALTH MAINTENANCE Final Result from Last 3 Months or Most Recently Relevant to Health Maintenance Additional Health Concerns Active Problems Noted Date Diagnosed Date Help patients manage their type 2 diabetes 01/26 Weekly blood pressure task 01/26/2025 Help patients manage their type 2 diabetes 01/26 Patient has chronic kidney disease 01/26/2025 Weekly blood pressure task 01/26/2025 Patient has chronic kidney disease 01/26/2025 Insurance [facility] STANDARD [facility] DUAL COMPLETE Care Teams Sales Supervisor Relationship Specialty Start Date End Date Name, MD Arjun [address] [place] [address] PCP - General Family Medicine 01/27/19
--- OUTSIDE RECORDS SUMMARY | 2025-01-26 15:11 | XMS_ITS | Encounter Summary ---
Author Organization [employer] Address [address] [facility] [address] [place] [address] Care Team Providers Care Bank Manager Name Role Phone NameArjun MD Primary Care Provider [phone] Mary Villegas PharmD Unavailable [phone] Reason for Visit * Reason Onset Date Comments Nurse Triage 07/08/2024 Encounter Details Date Type Department Care Team ([facility] Contact Info) Description 07/08/2024 Telephone [facility] [address] [place] [address] Name, MD Arjun [address] [place] [address] Nurse Triage Social History Tobacco Use Types [...] t he electric, gas, oil or water [employer] threatened to shut off services in your [...] 07/08/2024 9:43 AM EDT Triage call with [facility] [place] [id number] Suki Pt reports headache which started 2 [...] Description 02/07/2025 11:30 AM EST Clinical Support [facility] [address] [place] [address] documented as of this encounter Goals Goal Patient Goal Type Associated Problems Recent Progress Patient-Stated? Author Hemoglobin A1c < 7 Result Component 7.3(01/26/2025 11:32 AM EST) Candi Moore PharmD documented as of this encounter Visit Diagnoses Not on filedocumented in this encounter Additional Health Concerns Assessment Noted Time PHQ-9 Depression Total Score: 11 024 11:52 AM EDT documented as of this encounter Care Teams Bank Manager Relationship Specialty Start Date End Date Name, MD Arjun [address] [place] [address] PCP - General Family Medicine 01/27/19 Mary Villegas PharmD [address] [place] [address] Pharmacist Internal Medicine 04/13/24 10/24/24 documented as of this encounter
--- OUTSIDE RECORDS SUMMARY | 2025-01-26 15:11 | XMS_ITS | Encounter Summary ---
Author Organization [employer] Address [address] [facility] [address] 7[address] [place] [address] Care Team Providers Care Inside Finisher Name Role Phone Name, Arjun GODFREY Primary Care Provider [phone] Encounter Details Date Type Department Care Team (Latest Contact Info) Description 01/26/2025 Travel Social History Tobacco Use Types Packs/Day [...] is your housing situation today? I have claduio payne 12/29/[address] you [...] Description 02/07/2025 11:30 AM EST Clinical Support [address] [address] documented as of this encounter Goals Goal Patient Goal Type Associated Problems Recent Progress Patient-Stated? Author Hemoglobin A1c < 7 Result Component 7.3( 11:32 AM EST) No Candi Oglesby, PharmD Help patients manage their type 2 diabetes [...] has chronic kidney disease Ruben Ceja MA documented as of this encounter Visit Diagnoses Not on filedocumented in this encounter Additional Health Concerns Active [...] documented as of this encounter Care Teams Inside Finisher Relationship Specialty Start Date End Date Name, MD Arjun [address] [place] [address] PCP - General Family Medicine 01/27/19 documented as of this encounter
--- OUTSIDE RECORDS SUMMARY | 2025-01-26 15:12 | XMS_ITS | Encounter Summary ---
Author Organization [employer] Address [address] [facility] 7t [place] [address] Care Team Providers Care Restaurant Recruiter Name Role Phone Arjun Willard MD Primary Care Provider [phone] Mary Villegas PharmD Unavailable Reason for Visit * Reason Comments Med Refill Encounter Details Date Type Department Care Team ([facility] Contact Info) Description 05/07/2022 Refill [facility] [address] [place] [address] NameArjun MD [address] [place] [phone] Social History Tobacco Use Types Packs/Day Years [...] Department Care Team (Late Contact Info) Description 02/07/2025 11:30 AM EST Clinical Support [facility] [address] [place] [address] documented as of this encounter Visit Diagnoses Not on filedocumented in this encounter Care Teams Restaurant Recruiter Relationship Specialty Start Date End Date Arjun Willard MD [address] [place] [phone] PCP - General Family Medicine 01/27/19 Mary Villegas, Massimo [address] [place] [address] Pharmacist Internal Medicine 04/13/24 10/24/24 documented as of this encounter
--- OUTSIDE RECORDS SUMMARY | 2025-01-26 15:12 | XMS_ITS | Encounter Summary ---
Author Organization [employer] Address [address] [facility] 7t [place] [address] Care Team Providers Care Java Swing Developer Name Role Phone Name, Arjun GODFREY Primary Care Provider [phone] Mary Villegas PharmD Unavailable [phone] Encounter Details Date Type Department Care Team ([facility] Contact Info) Description 07/28/2022 Orders Only [facility] [address] [place], [place] [phone] Katey Soto LPN Social History Tobacco Use [...] Upcoming Encounters Date Type Department Care Team ([facility] Contact Info) Description 02/07/2025 11:30 AM EST Clinical Support [facility] [address] [place] [address] documented as of this encounter Visit Diagnoses Not on filedocumented in this encounter Care Teams Java Swing Developer Relationship Specialty Start Date End Date Name, MD Arjun [address] [place] [address] PCP - General Family Medicine 01/27/19 Mary Villegas, PharmD [address] [place] [address] Pharmacist Internal Medicine 04/13/24 10/24/24 documented as of this encounter
--- OUTSIDE RECORDS SUMMARY | 2025-01-26 15:12 | XMS_ITS | Encounter Summary ---
Author Organization [employer] Address [address] [facility] [address]t [place] [address] Care Team Providers Care Industrial Engineering Technologist Name Role Phone Name, Arjun GODFREY Primary Care Provider Mary Villegas PharmD Unavailable [phone] Encounter Details Date Type Department Care Team ([facility] st Contact Info) Description 08/27/[address] [address] Name, MD Arjun [address] [place] [address] Social History Tobacco Use Types Packs/Day Years [...] Description 02/07/2025 11:30 AM EST Clinical Support [address] [phone] documented as of this encounter Procedures Procedure [...] on filedocumented in this encounter Care Teams Industrial Engineering Technologist Relationship Specialty Start Date End Date Name, MD Arjun [address] [place] [address] PCP - General Family Medicine 01/27/19 Mary Villegas, Massimo [address] [place] [address] Pharmacist Internal Medicine 04/13/24 10/24/24 documented as of this encounter
--- OUTSIDE RECORDS SUMMARY | 2025-01-26 15:12 | XMS_ITS | Encounter Summary ---
Author Organization [employer] Address [address] [facility] 7t [place] [address] Care Team Providers Care Flooring Grader Name Role Phone Name, Arjun GODFREY Primary Care Provider [phone] Mary Villegas PharmD Unavailable [phone] Encounter Details Date Type Department Care Team ([facility] Contact Info) Description 06/02/[address] [facility] [address] [place], [place] [phone] Katey Soto LPN Social History Tobacco Use [...] Upcoming Encounters Date Type Department Care Team ([facility] Contact Info) Description 02/07/2025 11:30 AM EST Clinical Support [facility] [address] [place] [address] documented as of this encounter Visit Diagnoses Not on filedocumented in this encounter Care Teams Flooring Grader Relationship Specialty Start Date End Date Name, MD Arjun [address] [place] [address] PCP - General Family Medicine 01/27/19 Mary Villegas, PharmD [address] [place] [address] Pharmacist Internal Medicine 04/13/24 10/24/24 documented as of this encounter
--- OUTSIDE RECORDS SUMMARY | 2025-01-26 15:12 | XMS_ITS | Encounter Summary ---
Author Organization [employer] Address [address] [facility] 7t [place] [address] Care Team Providers Care Seal Mixing Operator Name Role Phone Name, Arjun GODFREY Primary Care Provider [phone] Mary Villegas PharmD Unavailable [phone] Encounter Details Date Type Department Care Team ([facility] Contact Info) Description 10/03/2022 Orders Only [address] [phone] Richa Rowley LPN Social History Tobacco Use [...] Description 02/07/2025 11:30 AM EST Clinical Support [address] [address] documented as of this encounter Procedures Procedure Name Priority Date/Time Associated Diagnosis Comments BI MAMMOGRAM SCREENING TOMOSYNTHESIS BILATERAL Routine 10/31/2022 9:35 AM EDT documented in this encounter Results * BI Mammogram Screening Tomosynthesis Bilateral (10/31/2022 9:35 AM EDT) Anatomical Region Laterality Modality Breast Bilateral Mammography 10/31/2022 9:35 AM EDT Narrative 11/21/2022 5:51 AM EDT [facility] [address] [place] [address] Mammography Report Signed Patient: Vanessa Crouch MR#: [id number] : [id number] Acct:[id number] Age/Sex: 72 / F ADM Date: 10/31/22 Loc: HO.MAMMO Attending Dr: Arjun Willard MD Ordering Physician: Arjun Willard MD Results: 2Benign Fi ndings Date of Service: 10/31/22 Follow Up: 1 Year From Orig inal Mammogram Procedure(s): MM tomosynthesis screening BI Accession Number(s): [id number] cc: Arjun Willard MD EXAMINATION: MM SCREENING [...] in OV> 11/21/22 0547 DD/ 0935 TD/TT: Rand Tacker: Procedure Note Donotuseinterpreter, Image - 09/08/2023 [facility] [address] [place] [address] Mammography Report Signed Patient: Roshni Crouch#: [id number] : 9Acct:[id number] Age/Sex: 72 / FADM Date: 10/31/22 Loc: HO.MAMMO Attending Dr: Arjun Willard MD Ordering Physician: Arjun Willard MDResults: 2Benign Fi ndings Date of Service: 10/31/22Follow Up: 1 Year From Orig inal Mammogram Procedure(s): MM tomosynthesis screening BI Accession Number(s): [id number] cc: Arjun Willard MD EXAMINATION: MM SCREENING [...] in OV> 11/21/22 0547 DD/ 0935 TD/TT: Rand Tacker: Arjun Willard MD IM BI PROCEDURES Edited Result - Final documented in this encounter Visit Diagnoses Not on filedocumented in this encounter Care Teams Seal Mixing Operator Relationship Specialty Start Date End Date Name, MD Arjun [address] [place] [address] PCP - General Family Medicine 01/27/19 Mary Villegas PharmD [address] [place] [address] Pharmacist Internal Medicine 04/13/24 10/24/24 documented as of this encounter
--- OUTSIDE RECORDS SUMMARY | 2025-01-26 15:12 | XMS_ITS | Encounter Summary ---
Author Organization [employer] Address [address] [address] [place] [address] Care Team Providers Care [facility] Att[facility] Name Role Phone Name, Arjun GODFREY Primary Care Provider [phone] Mary Villegas PharmD Unavailable [phone] Reason for Visit * Reason Comments Med Refill Encounter Details Date Type Department Care Team ([facility] Contact Info) Description 09/06/2022 Refill [facility] [address] [place] [phone] Tona Canales FNP Social History Tobacco Use [...] Description 02/07/2025 11:30 AM EST Clinical Support [facility] [address] [place] [phone] documented as of this encounter Visit Diagnoses Not on filedocumented in this encounter Care Teams [facility] Att[facility] Relationship Specialty Start Date End Date Name, MD Arjun [address] [place] [phone] PCP - General Family Medicine 01/27/19 Mary Villegas, PharmD [address] [place] [phone] Pharmacist Internal Medicine 04/13/24 10/24/24 documented as of this encounter
== END 2025-01-26 12:00 | disposition home or self-care (01) ==
LOC: HO.HHCL 11:59
PROVIDERS: PCP Internal Medicine Geriatric Medicine; Visit Provider Internal Medicine Geriatric Medicine
DX: E11.65 Type 2 diabetes mellitus with hyperglycemia (principal)
CPT/HCPCS: 81001